=== PATIENT | female | born 1965 | race Caucasian/White ===

== ENCOUNTER 2019-08-08 19:08 | Emergency (ER) | payer SELFPAY ==
[~2019-08-08] VITALS: Ht 162.6 cm; Wt 63.5 kg
[~2019-08-08 19:08] MED LIST: ENALAPRIL MALEA10 MG PO; FOL1 PO; GEODON20 MG PO; MAXZIDE1 TAB PO; SERO100 PO; SEROQUEL200 MG PO; THI100 PO; TRAMADOL50 M1 PO
[2019-08-08 20:19] VITALS: Ht 162.6 cm; Wt 63.5 kg
[2019-08-08 22:02] LABS: BASOPHIL % 0.5 % (0-2); PLATELET COUNT 146 x10^3mcL (130-400); RED CELL DISTRIBUTION WIDTH 14.3 % (11.5-14.5)
[2019-08-08 22:04] LABS: CALCIUM 8.9 mg/dL (8.5-10.1); CARBON DIOXIDE 24.3 mmol/L (21-32); CHLORIDE SERUM 100 mmol/L (98-107); CREATININE SERUM 0.8 mg/dL (0.6-1.0); GFR1 > 60 mL/min; GLUCOSE SERUM 96 mg/dL (74-106); POTASSIUM SERUM 3.4 mmol/L (3.5-5.1); SODIUM SERUM 138 mmol/L (136-145)
[2019-08-08 22:51] VITALS: BP 121/79
== END 2019-08-08 22:53 | disposition home or self-care (01) ==
LOC: ED 19:08
PROVIDERS: Emergency Medicine
DX: R55 Syncope and collapse (principal); F10.129 Alcohol abuse with intoxication, unspecified; I10 Essential (primary) hypertension
CPT/HCPCS: 36415; G0480

== ENCOUNTER 2020-07-07 09:23 | Inpatient (IN) | payer OTHER ==
[~2020-07-07] VITALS: Ht 160 cm; Wt 63.7 kg
[2020-07-07 09:34] VITALS: Ht 160 cm; Wt 63.7 kg
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
--- NOTE | 2020-07-07 10:55 | NUR ---
PT IS STILL AGITATING AND YELLING AROUND. ED AWARE. ATIVAN WAS ORDERED AND GIVEN FOLLOWS ABBIE GIVEN IM.
--- NOTE | 2020-07-07 11:22 | NUR ---
PT FINALLY QUIETED DOWN. JUAN CARLOS FEMALE RN WAS ASKED TO INSERT IN&OUT THEN URINE SAMPLE COLLECTED AND SENT TO LAB.
--- NOTE | 2020-07-07 11:37 | NUR ---
PT IS QUIETLY SLEEPING NOW.
[2020-07-07 11:50] LABS: AMPHETAMINE QUAL UR NONE DETECTED (See below)
[2020-07-07 12:40] LABS: BASOPHIL % 0.3 % (0-2)
[2020-07-07 12:48] LABS: CALCIUM 8.7 mg/dL (8.5-10.1); CARBON DIOXIDE 23.6 mmol/L (21-32); CHLORIDE SERUM 107 mmol/L (98-107); CREATININE SERUM 0.6 mg/dL (0.6-1.0); GFR1 > 60 mL/min; GLUCOSE SERUM 95 mg/dL (74-106); SODIUM SERUM 141 mmol/L (136-145)
[2020-07-07 12:52] LABS: ALBUMIN 3.4 g/dL (3.4-5.0); ALKALINE PHOSPHATASE 66 U/L (46-116); ALT/SGPT 12 U/L (14-59); AST/SGOT 32 U/L (15-37); BILIRUBIN TOTAL 0.54 mg/dL (0.20-1.00); TOTAL PROTEIN, SERUM 6.6 g/dL (6.4-8.2)
[2020-07-07 12:59] LABS: RED CELL DISTRIBUTION WIDTH 15.5 % (11.5-14.5)
[2020-07-07 13:02] LABS: PLATELET COUNT 79 x10^3mcL (130-400)
--- NOTE | 2020-07-07 13:16 | NUR ---
PT RESTING WITH NO SIGNS OF DISTRESS.
[2020-07-07 13:33] LABS: microscopic required? YES; urine erythrocyte 1+ (NEGATIVE)
[2020-07-07 15:14] LABS: ALBUMIN 3.8 g/dL (3.4-5.0); ALKALINE PHOSPHATASE 73 U/L (46-116); ALT/SGPT 17 U/L (14-59); AST/SGOT 24 U/L (15-37); BILIRUBIN DIRECT 0.18 mg/dL (0.0-0.2); BILIRUBIN TOTAL 0.6 mg/dL (0.20-1.00); TOTAL PROTEIN, SERUM 6.7 g/dL (6.4-8.2)
--- NOTE | 2020-07-07 16:53 | NUR ---
PHONE ORDERS FROM DR. DEL ROSARIO FOR ADMISSION, NEEDS SITTER; SLEEVE SETTER LOCKSTITCH AWARE AND PT IS ON 5059
--- NOTE | 2020-07-07 16:55 | NUR ---
COVID SWAP WAS DONE AND SENT TO LAB.
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
--- NOTE | 2020-07-07 22:15 | NUR ---
DR TUCKER CALLED BACK AND HE SAID HE WILL PUT IN ORDERS.
[2020-07-07 22:33] VITALS: BP 138/79
--- NOTE | 2020-07-07 22:50 | NUR ---
PUT IN NEW ORDER FOR HYDRALAZINE FOR PRODUCT DELIVERY SPECIALIST ON THE [facility] PER TELEPHONE ORDER FORM DR TUCKER
--- NOTE | 2020-07-07 22:51 | NUR ---
PUT IN NEW ORDER FOR IV FLUIDS [facility] D[facility]/2 NS AT 80 ML/HR ORDERED BY
[2020-07-08 05:40] VITALS: BP 126/69
--- NOTE | 2020-07-08 06:53 | NUR ---
PT HALLUCINATING AND VERY AGITATED ALL NIGHT. REMAINED IN BILATERAL WRIST RESTRAINS AND SITTER AT BEDSIDE. REFUSES TO TAKE ANYTHING PO. IVF INFUSING ORDERED. WILL ENDORSE CARE TO INCOMING DAY SHIFT RN FOR CONTINUITY OF CARE
[2020-07-08 07:26] LABS: ALBUMIN 3.6 g/dL (3.4-5.0); ALKALINE PHOSPHATASE 69 U/L (46-116); ALT/SGPT 21 U/L (14-59); AST/SGOT 32 U/L (15-37); BILIRUBIN TOTAL 0.7 mg/dL (0.20-1.00); CALCIUM 8.5 mg/dL (8.5-10.1); CARBON DIOXIDE 28.6 mmol/L (21-32); CHLORIDE SERUM 106 mmol/L (98-107); CHOLESTEROL 162 mg/dL (<200); CHOLESTEROL/HDL RATIO 3.2; CREATININE SERUM 0.8 mg/dL (0.6-1.0); GFR1 > 60 mL/min; GLUCOSE SERUM 102 mg/dL (74-106); HDL CHOLESTEROL 50 mg/dL (40-60); MAGNESIUM 1.7 mg/dL (1.8-2.4); PHOSPHOROUS 3.1 mg/dL (2.5-4.9); POTASSIUM SERUM 3.7 mmol/L (3.5-5.1); SODIUM SERUM 141 mmol/L (136-145); TOTAL PROTEIN, SERUM 6.5 g/dL (6.4-8.2); TRIGLYCERIDES 86 mg/dL (<150)
[2020-07-08 07:41] LABS: BASOPHIL % 0.2 % (0-2)
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
[2020-07-08 08:05] LABS: PLATELET COUNT 72 x10^3mcL (130-400); RED CELL DISTRIBUTION WIDTH 14.9 % (11.5-14.5)
[2020-07-08 09:00] VITALS: BP 161/77
--- NOTE | 2020-07-08 10:00 | NUR ---
PATIENT GIVEN HER MEDICATION BUT SOME SHE SPIT OUT AND REFUSED. SHE HAS A TEMPERATURE BUT REFUSED THE TYLENOL THE PSYCH MEDICAIONS STAFF WAS ABLE TO GIVE. SITTER AT BEDSIDE AND PATIENT REMAINS A 5150. SHE HAS SCATTERED ADN DISORGANIZED THOUGHTS AND SHE IS AGRESSIVE AND VIOLENT AT TIMES.
--- NOTE | 2020-07-08 11:41 | NUR ---
CALED THE DR FOR ORDERS THE PATIENT HAS HAD AN ISSUE WITH HER SPLEEN ON PREVIOUS ADMISSION AND THE TECH WANT TO KNOW IF HE WOULD PREFER A COMPLETE RATHER THAN A LIMITTED. ALSO TIM HAS BEEN EATTING POORLY WITH ONLY A SMALL BIT OF ALBANIAN TOAST THIS AM. SHE REFUSES MOST EVERYTHING AND WAS SARI TO GET SOME OF HER MEDICATIONS IN HER GEODON, VISTERIL. SHE HAD THE TYLNEOL AND VITAMINS BUT REFUSED THEM AND SPIT THEM OUT DURING MEDICATION PASS.
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
[2020-07-08 13:44] VITALS: BP 143/86
--- NOTE | 2020-07-08 16:11 | NUR ---
THE HALDOL WAS EFFECTIVE FOR A SHORT TIME BUT SHE IS AGAIN AGITATED AND YELLING AND CRYING. SHE HAS NOT MADE MUCH SENSE WITH THE SENARIOS SHE TALKS ABOUT THEY SEEM MIXED UP AND NO AT ALL TIMELY. LIKE MAYBE SOMETHING HAPPENDED IN THE PAST. SHE CALLS OUT FOR HER DADDY. SHE HAS INTERMITTANT PERIODS OF FOUL LANGUAGE AND SHE THREATENS STAFF AND THEN SHE IS CRYING LIKE A SMALL CHILD. SHE CONTINUE WITH BILATERAL RESTRAINTS AND WITH SITTER AT BEDSIDE.
--- NOTE | 2020-07-08 17:52 | NUR ---
SPOKE AT [facility] FOR THE SECOND TIME TODAY WITH . NO RESULTS OF THE PCYCH CONSULT OR THE ULTRASOUND. PATIENT ADVISED IS STABLE AT THIS TIME.
--- NOTE | 2020-07-08 19:35 | NUR ---
RECEIVED PT FROM DAYSHIFT NURSE. UNABLE TO ASSESS ALOC DUE TO EPISODES OF CONFUSION AND PATIENT RESTING AND HAVING EPISODES OF RESTLESNESS. PATIENT IS MED SURG PATIENT, DENIES CHEST PAIN. PULSES ARE EQUAL BILATERALLY, NO EDEMA NOTED. PATIENT IS CTA, ON RA, DENIES SOB. NO ACUTE DISTRESS NOTED, EVEN AND UNLABORED BREATHING. ABDOMEN IS SOFT AND ROUND, NO PAIN UPON PALPATION, NORMOACTIVE X4 QUADRANTS. PATIENT IS INCONTINENT AT THIS TIME. PATIENT HAS IV TO LEFT WRIST 22G, SITE INTACT, NO REDNESS OR SWELLING NOTED. PATIENT IS AGRESSIVE AND UNCOOPERATIVE WITH STAFF. BILATERAL SOFT WRIST RESTRAINTS IN PLACE. ALL SAFETY MEASURES IN PLACE, BED IN LOWEST POSITION, CALL LIGHT WITHIN REACH. WILL CONTINUE TO MONITOR.
--- NOTE | 2020-07-08 19:51 | NUR ---
Call Center weight shifter is aware of patient and will assist with bed placement when ready. -pending packet -pending medical clearance -pending call from [facility] when ready for placement
--- NOTE | 2020-07-08 21:11 | NUR ---
RECEIVED PHONE CALL FROM PATIENT'S REGARDING MISSED PHONE CALL FROM DOCTOR. CALLED [facility] AND PROVIDED 'S PHONE NUMBER TO HAVE DOCTOR CALL HIM BACK. INFORMED OF AWAITING FOR CALL.
--- NOTE | 2020-07-08 21:14 | NUR ---
DR. ALEJANDRE CALLED BACK, STATED HE WILL NOTIFY DR. DEL ROSARIO TO CONTACT PATIENT'S .
[2020-07-09 00:10] VITALS: BP 117/95
--- NOTE | 2020-07-09 01:05 | NUR ---
PATIENT RESTING INTERMITTENTLY WITH EYES CLOSED. PATIENT CONTINUES TO HAVE AGITATION EPISODES. ABLE TO GIVE PATIENT SEROQUEL MEDICATION AT THE TIME SHE WAS AWAKE. PATIENT WAS RE-ORIENTED TO ENVIRONMENT, OBSERVED BEING ABLE TO SWALLOW WITHOUT DIFFICULTY. PATIENT REMAINS ON BILATERAL SOFT WRIST RESTRAINTS. ALL SAFETY MEASURES IN PLACE. BED IN LOWEST POSITION, CALL LIGHT WITHIN REACH. WILL CONTINUE TO MONITOR.
[2020-07-09 06:43] LABS: ALKALINE PHOSPHATASE 64 U/L (46-116); ALT/SGPT 21 U/L (14-59); AST/SGOT 23 U/L (15-37); BILIRUBIN TOTAL 0.6 mg/dL (0.20-1.00); CALCIUM 8.2 mg/dL (8.5-10.1); CARBON DIOXIDE 28.6 mmol/L (21-32); CHLORIDE SERUM 106 mmol/L (98-107); CREATININE SERUM 0.7 mg/dL (0.6-1.0); GFR1 > 60 mL/min; GLUCOSE SERUM 128 mg/dL (74-106); MAGNESIUM 1.8 mg/dL (1.8-2.4); PHOSPHOROUS 4.3 mg/dL (2.5-4.9); POTASSIUM SERUM 3.2 mmol/L (3.5-5.1); SODIUM SERUM 141 mmol/L (136-145)
[2020-07-09 06:46] LABS: BASOPHIL % 0.4 % (0-2)
--- NOTE | 2020-07-09 06:50 | NUR ---
UNABLE TO EDIT PATIENT'S VITAL SIGNS AT THIS TIME. IT HAS BEEN CONTACTED T : 97.1, HR: 69, RR :18, BP: 105/63 (77), SPO2 : 99%.
[2020-07-09 06:56] LABS: PLATELET COUNT 73 x10^3mcL (130-400); RED CELL DISTRIBUTION WIDTH 15.8 % (11.5-14.5)
--- NOTE | 2020-07-09 06:57 | NUR ---
PATIENT RESTING INTERMITTENTLY WITH EYES CLOSED. PATIENT AWAKES WITH EPISODES OF AGITATION AND CONFUSION. PATIENT REMAINS ON BILATERAL SOFT WRIST RESTRAINTS. ALL SAFETY MEASURES IN PLACE. BED IN LOWEST POSITION, CALL LIGHT WITHIN REACH. SITTER AT BEDSIDE.
[2020-07-09 07:10] LABS: ALBUMIN 3.3 g/dL (3.4-5.0)
--- NOTE | 2020-07-09 07:19 | NUR ---
ENDORSED CARE TO DAYSHIFT NURSE. ALL QUESTIONS/CONCERNS ADDRESSED.
--- NOTE | 2020-07-09 07:55 | NUR ---
Received report. [facility] now has patient packet.
--- NOTE | 2020-07-09 08:07 | NUR ---
Packet referred to: Yani Cheng [facility]
[2020-07-09 08:30] VITALS: BP 148/81
--- NOTE | 2020-07-09 18:52 | NUR ---
Received report from day shift and Call Center will continue to call contracted [facility] psych facilities for bed availability.
--- NOTE | 2020-07-09 19:40 | NUR ---
RECEIVED PT FROM DAYSHIFT NURSE. UNABLE TO ASSESS ALOC. PT IS MED SURG PATIENT, DENIES CHEST PAIN. PULSES ARE EQUAL BILATERALLY, NO EDEMA NOTED. PATIENT IS CTA, ON RA, DENIES SOB. NO ACUTE DISTRESS NOTED, EVEN AND UNLABORED BREATHING. ABDOMEN IS SOFT AND ROUND, NO PAIN PALPATION. NORMOACTIVE X4 QUADRANTS, LAST BM UNKNOWN, PT CONFUSED UNABLE TO GIVE INFORMOATION. PT IS INCONTIENT. PT HAS GENERALIZED WEAKNESS, BEDFAST AT THIS TIME. PT HAS LACERATION TO FORHEAD, ELECTROLYSIS INVESTIGATOR. PATIENT DEMONSTRATES NO S/S OF PAIN. IV TO LEFT WRIST, 2OG, SITE INTACT, NO REDNESS OR SWELLING. PATIENT IS ON BILATERAL SOFT WRIST RESTRAINTS, INTERMITTENT EPISODES OF AGGRESIVENESS AND RESTLENESS. SITTER AT BEDSIDE. ALL SAFETY MEASURES IN PLACE. BED IN LOWEST POSITION, CALL LIGHT WITHIN REACH. WILL CONTINUE TO MONITOR.
[2020-07-09 19:42] VITALS: BP 142/86
--- NOTE | 2020-07-09 20:05 | NUR ---
RECEIVED TELEPHONE ORDER FOR RENEWAL OF BILATERAL SOFT WRIST RESTRAINTS FROM DR. HILL. PHYSICAL PAPER IN PATIENT'S CHART, DR. DORMAN NEEDED.
--- NOTE | 2020-07-10 00:30 | NUR ---
PATIENT RESTING INTERMITTENTLY WITH EYES CLOSED. PATIENT WAS ABLE TO TAKE MEDICATION DURING SCHEDULED MEDICATION TIME, SWALLOWED ADEQUATELY, DENIES ANY PAIN. PATIENT DEMONSTRATES EPISODES OF CONFUSION. SITTER AT BEDSIDE, BILATERAL SOFT WRIST RETRAINTS IN PLACE. ALL SAFETY MEASURES IN PLACE. BED IN LOWEST POSITION, CALL LIGHT WITHIN REACH. WILL CONTINUE TO MONITOR.
--- NOTE | 2020-07-10 05:22 | NUR ---
No update on bed placement during shift. Patient will need a psychiatric revaluation due to 5150 expiring today 05/10 @ 0905. Will endorse to oncoming AM shift.
--- NOTE | 2020-07-10 05:47 | NUR ---
PATIENT REMAINS WITH EPISODES OF CONFUSION AND AGITATION. PATIENT HAS CONFUSED EPISODES OF SPEECH, RAMBLING TOPICS. PT BECOMES AGITATED WITH NURSING TEAM AT TIMES, SITTER REMAINS AT BEDSIDE. PATIENT DEMONSTRATES NO S/S OF PAIN OR DISTRESS AT THIS TIME. ALL SAFETY MEASURES IN PLACE. BED IN LOWEST POSITION, CALL LIGHT WITHIN REACH. WILL CONTINUE TO MONITOR AND ENDORSE TO DAYSHIFT NURSE AT APPROPRIATE TIME.
[2020-07-10 06:10] VITALS: BP 130/76
--- NOTE | 2020-07-10 07:07 | NUR ---
[facility] to continue working on placement, no openings overnight. 7379 hold expires at 0905
--- NOTE | 2020-07-10 07:20 | NUR ---
ENDORSED CARE TO DAYSHIFT NURSE. ALL QUESTIONS/CONCERNS ADDRESSED.
[2020-07-10 07:32] LABS: ALBUMIN 3.5 g/dL (3.4-5.0); ALKALINE PHOSPHATASE 71 U/L (46-116); ALT/SGPT 26 U/L (14-59); AST/SGOT 27 U/L (15-37); BILIRUBIN TOTAL 0.69 mg/dL (0.20-1.00); CARBON DIOXIDE 25.5 mmol/L (21-32); CHLORIDE SERUM 107 mmol/L (98-107); CREATININE SERUM 0.8 mg/dL (0.6-1.0); GFR1 > 60 mL/min; GLUCOSE SERUM 100 mg/dL (74-106); MAGNESIUM 1.8 mg/dL (1.8-2.4); PHOSPHOROUS 4.4 mg/dL (2.5-4.9); SODIUM SERUM 142 mmol/L (136-145); TOTAL PROTEIN, SERUM 6.4 g/dL (6.4-8.2)
--- NOTE | 2020-07-10 07:40 | NUR ---
PT AWAKE AND AGITATED. UNABLE TO ASSESS LOC. NO S/S OF PAIN NOTED. PT STARTS AGITATED WHEN SHE SEES HEALTHCARE TEAM. CONFUSED AND UNABLE TO ANSWER QUESTIONS PROPERLY. NO RESPIRATION DISTRESS NOTED. BREATHING EVEN AND UNLABORED. NO EDEMA NOTED. LAST BM UNKNOWN, INCONTINENT. BOWEL SOUND ACTIVE [id number]. MED/SURG PATIENT. PT IS GENERALIZED WEAKNESS. LACERATION TO FOREHEAD RAFAEL. IV ACCESS TO LH 20G, SALINE LOCK SITE WNL. PT HAS BILATERAL SOFT WRIST RESTRAINT, NO REDNESS, SWELLING NOTED. CAP REFILL<3SEC. SKIN WARM, PINK. VS WNL. SAFETY MEASURE IN PLACE. SITTER AT BEDSIDE. CALL LIGHT WITHIN REACH, BED AT LOWEST POSITION. WILL CONTINUE TO MONITOR.
[2020-07-10 08:14] LABS: BASOPHIL % 0.7 % (0-2)
[2020-07-10 08:15] LABS: PLATELET COUNT 63 x10^3mcL (130-400); RED CELL DISTRIBUTION WIDTH 15.8 % (11.5-14.5)
[2020-07-10 08:18] VITALS: BP 137/85
[2020-07-10 12:06] VITALS: BP 142/86
--- NOTE | 2020-07-10 13:01 | NUR ---
PT AWAKE, CONFUSED. AGITATED IMPROVED AFTER GIVING ATIVAN PO. NO SOB, ACUTE DISTRESS NOTED.
[2020-07-10 16:47] VITALS: BP 129/74
--- NOTE | 2020-07-10 18:33 | NUR ---
PT SLEEPY, CONFUSED. DENIES PAIN. NO SOB, S/S OF ACUTE DISTRESS NOTED. BREATHING EVEN AND UNLABORED. IV ACCESS TO LH 20G, HL PATENT, NO S/S OF INFECTION/INFILTRATION. SITTER AT BEDSIDE. BILATERAL SOFT WRIST RESTRAINT IN PLACE. SAFETY PRECAUTION IN PLACE. CALL LIGHT WITHIN REACH, BED AT LOWEST POSITION. WILL BE ENDORSED TO MAINTENANCE MECHANIC RN.
--- NOTE | 2020-07-10 19:35 | NUR ---
PT. REPORT RECIEVED FROM DAY SHIFT NURSE, PT. RESTING W/ EYES CLOSED, NO FACIAL DROOP NOTED, RR EVEN AND UNLABORED ON RA, CHEST RISE SYMT, ALL SAFETY MEASURES FOLLOWED, SITTER AT BEDSIDE, WILL CONT TO MONITOR.
[2020-07-10 20:27] VITALS: BP 115/76
--- NOTE | 2020-07-11 03:07 | NUR ---
PT. IS IN BED RESTING, NO FACIAL DROOP NOTED, CLEAR SPEECH, RR EVEN AND UNLABORED ON RA, CHEST RISE SYMT, L W IV INTACT AND WNL, NO REDNESS NOTED, NO ACUTE CHANGE/ DISTRESS NOTED, SOFT RESTRAINT APPLIED DUE TO PT. SELF HARM, SITTER AT BEDSIDE, SEIZURE PRECUATION IN PLACE, CALL LIGHT WITHIN REACH, WILL CONT TO MONITOR.
[2020-07-11 05:13] VITALS: BP 104/61
--- NOTE | 2020-07-11 06:18 | NUR ---
CC continuing to work on placement, no openings overnight.
--- NOTE | 2020-07-11 07:31 | NUR ---
PT. REPORT ENDORSE TO DAY SHIFT NURSE, PT. RESTING IN BED, SOFT RESTRAINT APPLIED DUE TO PT. SELF HARM, SITTER AT BEDSIDE, RR EVEN AND UNLABORED ON RA, CHEST RISE SYMT, IV INTACT AND WNL, ALL SAFETY MEASURES IN PLACE, WILL CONT TO MONITOR.
[2020-07-11 07:49] LABS: ALKALINE PHOSPHATASE 64 U/L (46-116); ALT/SGPT 22 U/L (14-59); AST/SGOT 24 U/L (15-37); BILIRUBIN TOTAL 0.4 mg/dL (0.20-1.00); CALCIUM 8.4 mg/dL (8.5-10.1); CARBON DIOXIDE 26.8 mmol/L (21-32); CHLORIDE SERUM 107 mmol/L (98-107); CREATININE SERUM 0.8 mg/dL (0.6-1.0); GFR1 > 60 mL/min; GLUCOSE SERUM 104 mg/dL (74-106); MAGNESIUM 1.8 mg/dL (1.8-2.4); PHOSPHOROUS 4.9 mg/dL (2.5-4.9); POTASSIUM SERUM 3.9 mmol/L (3.5-5.1); SODIUM SERUM 142 mmol/L (136-145)
[2020-07-11 07:56] LABS: ALBUMIN 3.3 g/dL (3.4-5.0); TOTAL PROTEIN, SERUM 5.8 g/dL (6.4-8.2)
[2020-07-11 08:00] VITALS: BP 139/84
[2020-07-11 09:39] LABS: BASOPHIL % 0.2 % (0-2)
[2020-07-11 09:40] LABS: PLATELET COUNT 91 x10^3mcL (130-400); RED CELL DISTRIBUTION WIDTH 15.6 % (11.5-14.5)
--- NOTE | 2020-07-11 09:44 | NUR ---
PT AWAKE, CONFUSED AND AGITATED. SEIZURE PRECAUTION IN PLACE. MED SURG PATIENT. PT GETS MORE AGITATED WHEN HEALTH TEAMS ARE CLOSE TO THE BED. C/O BACK PAIN AND BODY PAIN 5/10, NORCO GIVEN. NO RESPIRATORY DISTRESS NOTED. BREATHING EVEN AND UNLABORED. LUNG CTA PERIPHERAL PULSES PALPABLE, NO EDEMA NOTED. INCONTINENT. POOR APPETITE. BOWEL SOUND ACTIVE [id number]. ABD SOFT AND NONTENDER. IV ACCESS TO LEFT WRIST RUNNING D5%-0.45%NACL 80/ML/HR INFUSING WELL SITE WNL. PT ON 5150 HOLD. BILATERAL SOFT WRIST RESTRAINTS EXP 07/11/20 AT 1500. CAP REFILL <3SEC, SKIN SURROUND RESTRAINT WNL. SITTER AT BEDSIDE. CALL LIGHT WITHIN REACH. BED AT LOWEST POSITION. WILL CONTINUE TO MONITOR.
--- NOTE | 2020-07-11 11:00 | NUR ---
STATED WANTED TO GO TO BATHROOM. ASSISTED BY 3 STAFFS TO STAND UP AND PATIENT VOIDED RIGHT AWAY ON THE FLOOR. PATIENT IS UNTEADY GAIT, VERY WEAK. ASSISTED BACK TO BED. LINENS CHANGED. PATIENT ASKED TO SPEAK TO HER . CALLED PATIENT'S (DIAMANTE) FROM HER CELL PHONE. APPEARS CALMER BUT CONFUSED. KEPT PATIENT COMFORTABLE IN BED. MARIKA SOFT WRIST RESTRAINT APPLIED. SITTER 1:1 AT BEDSIDE. SEIZURE PRECAUTION ON.
--- NOTE | 2020-07-11 12:30 | NUR ---
PATIENT APPEARS VERY AGITATED, ATTEMPTED TO GET OUT OF BED, COMBATIVE AND TRY TO SPIT AT ME AND SITTER. PATIENT ATTEMPTED TO GET OFF FROM BILATERAL SOFT WRIST RESTRAINT SCREAMING/CRYING. HADOL 2.5MG IM GIVEN FOR AGITATION. WILL CONTINUE TO MONITOR.
[2020-07-11 15:46] VITALS: BP 135/70
--- NOTE | 2020-07-11 15:48 | NUR ---
No openings at any contracted facility at this time [facility] continuing to follow up.
--- NOTE | 2020-07-11 17:10 | NUR ---
PT AGITATED AND PULLED OUT HER IV ACCESS ON LH. REMOVED THE OLD LH IV ACCESS AND [id number] APPIED TO THE SITE, THE IV SITE HAS NO S/S OF INFECTION NOTED. NEW IV ACCESS STARTED TO RIGHT WRIST 22G, COVERED WITH TEGADERM DRESSING, CDI. D5%-0.45% RUNNING TO RH IV INFUSING WELL, PATENT. BILATERAL SOFT WRIST RESTRAINT IN PLACE. CAP REFILL <3SEC. SKIN SURROUND THE RESTRAINT PINK AND WARM. SITTER AT BEDSITE, CALL LIGHT WITHIN REACH, BED AT LOWEST POSITION. WILL CONTINUE TO [facility].
--- NOTE | 2020-07-11 18:51 | NUR ---
PT SLEEPING AND CONFUSED. DENIES PAIN, SOB, DIZZINESS. BREATHING EVEN AND UNLABORED. NO S/S OF ACUTE RESPIRATORY DISTRESS NOTED. BILATERAL SOFT WRIST RESTRAINTS IN PLACE. CAP REFILL <3SEC, SKIN SURROUND RESTRAINTS PINK, WARM. IV ACCESS TO RIGHT WRIST RUNNING D5%-0.45% 80ML/HR INFUSING WELL, SITE WNL. VS REMAINS WNL. SEIZURE PRECAUTION IN PLACE. SITTER AT BEDSIDE. SAFETY MEASURE IN PLACE, CALL LIGHT WITHIN REACH, BED AT LOWEST POSITION. WILL BE ENDORSED TO TABLE GAMES MANAGER RN.
--- NOTE | 2020-07-11 19:00 | NUR ---
I HAVE REVIEWED THE DATA COLLECTION BY RN (NAME): BLAKE CROOKS ENTERED ON (DATE/TIME):07/11/20 7A-7P. I CONCUR WITH THE DATA AND ANY EXCEPTIONS OR COMMENTS ARE LISTED BELOW:
[2020-07-11 19:47] VITALS: BP 133/78
[2020-07-12 06:27] VITALS: BP 157/99
[2020-07-12 07:04] LABS: BASOPHIL % 0.3 % (0-2)
[2020-07-12 07:17] VITALS: BP 131/90
[2020-07-12 07:36] LABS: ALBUMIN 3.5 g/dL (3.4-5.0); ALKALINE PHOSPHATASE 66 U/L (46-116); ALT/SGPT 24 U/L (14-59); AST/SGOT 30 U/L (15-37); BILIRUBIN TOTAL 0.48 mg/dL (0.20-1.00); CALCIUM 8.9 mg/dL (8.5-10.1); CARBON DIOXIDE 25.8 mmol/L (21-32); CHLORIDE SERUM 106 mmol/L (98-107); CREATININE SERUM 0.9 mg/dL (0.6-1.0); GFR1 > 60 mL/min; GLUCOSE SERUM 103 mg/dL (74-106); MAGNESIUM 1.7 mg/dL (1.8-2.4); PHOSPHOROUS 3.9 mg/dL (2.5-4.9); POTASSIUM SERUM 4.3 mmol/L (3.5-5.1); SODIUM SERUM 142 mmol/L (136-145); TOTAL PROTEIN, SERUM 6.7 g/dL (6.4-8.2)
[2020-07-12 07:41] LABS: PLATELET COUNT 101 x10^3mcL (130-400); RED CELL DISTRIBUTION WIDTH 15.4 % (11.5-14.5)
[2020-07-12 13:00] VITALS: BP 142/89
[2020-07-12 16:00] VITALS: BP 147/85
--- NOTE | 2020-07-12 18:53 | NUR ---
Pt currently in bed alert but confused. Pt condition remained stable throughout this shift. Pt able to communicate pain but denies pain this shift. All meds given as ordered. Oral meds crushed with apple sauce made it easier for pt to take. Restraints removed multiple times this shift for assessment. Pt attempted to get out of bed without assistance and also attempts to removes IV access immediately restraints removed. Due to pt safety, restraints still needed at this time. Nursing sitter used throughout this shift. Safety measures maintained-Bed in low position and sitter at bed side. Will endorse care to oncoming shift RN.
--- NOTE | 2020-07-12 20:21 | NUR ---
RECEIVED PT SITTING ON THE BED AAOX1 , PT'S VERY CONFUSED AND AGITATED , BILAT WRIST RESTRAINT AND SITTER FOR SAFETY, WILL CON'T TO MONITOR AND ASSIST PT WITH CARE .
--- NOTE | 2020-07-12 21:50 | NUR ---
PT'S VERY AGITATED SCREAMING OUT LOUD REFUSED PM MEDS , HALDOL IM GIVEN ORDERED.
--- NOTE | 2020-07-13 02:06 | NUR ---
PT'S IN BED AWAKE AND CALM, [facility] .
--- NOTE | 2020-07-13 06:25 | NUR ---
POST HALDOL , PT'S AWAKE AND CALM , SITTER AT THE BEDSIDE FOR SAFTY , PIV INTACT INFUSING WELL .
[2020-07-13 07:17] VITALS: BP 131/84
--- NOTE | 2020-07-13 07:58 | NUR ---
CALL OUT TO CASE MANAGMENT FOR UPDATE NO ANSWER.WILL TRY BACK
[2020-07-13] MEDS ORDERED: DEP250 PO (11:51)
--- NOTE | 2020-07-13 18:49 | NUR ---
Pt currently in bed alert but confused. Pt was calm at the begining part of the shift but became so agitated yelling on top of her voice this evening. Holdol given as ordered once and its was effective. Pt currently calm in bed. Restraints removed multiple times this shift for assessment but re-applied because each time restraints removes, pt attempts to get out of bed and also tried to remove her IV access. Due to pt safety, restraints still bed. Pt has order for [facility] hosptal but no bed available at this time. Safety measures maintained in place. Bed in low postion and nursing sitter at bed side. Will endorse care to oncoming shift RN.
[2020-07-13 21:39] VITALS: BP 159/99
--- NOTE | 2020-07-14 00:39 | NUR ---
PATIIENT CONTINUES ON 1:1 SITTER. NO DISTRESS NOTED ON ROUNDS. PATIENT WAITING FOR PLACEMENT TO A PSYCHE FACILITY. PATIENT ABLE TO TAKE MEDICATIONS BY MOUTH WITHOUT ANY DIFFICULTIES. BILATERAL SOFT WRIST RESTRAINT CONTINUED. BED IN LOW POSITION. SITTER AT BEDSIDE.
--- NOTE | 2020-07-14 01:17 | NUR ---
Sent intake information to [facility] for review. Will keep facility updated with any information of possible transfer for admission
[2020-07-14 05:20] VITALS: BP 135/85
--- NOTE | 2020-07-14 06:48 | NUR ---
[facility] day shift to continue actively looking for placement for this pt. Will followup with potential facilities today. Will contact with any updates. No openings per cnc machinist 2nd shift report.
[2020-07-14 09:10] VITALS: BP 148/69
--- NOTE | 2020-07-14 10:31 | NUR ---
REMOVED IV ACCESS, INFILTRATED
--- NOTE | 2020-07-14 15:17 | NUR ---
Received call from HANS Chambers at [facility] following up regarding pt placement status. States New labs were faxed to [facility] directly. Spoke with template maker at [facility], states they have not received any labs. Will attempt to contact S/W to receive labs as they are not visible in chart or able to be printed on our end at this time.
--- NOTE | 2020-07-14 18:05 | NUR ---
PLEASANTLY CONFUSED, REMAINS DELUSIONAL AND HALLUCINATE, CALM DURING SHIFT. SITTER AT BEDSIDE FOR SAFETY. REFUSED TO HAVE IV ACCESS, PATIENT GETS AGITATED. PER CM, WAITING FOR BED AT [facility].
--- NOTE | 2020-07-14 20:00 | NUR ---
PATIENT RECEIVED AWAKE, ALERT, ORIENTED X1. RESPIRATION EVEN AND UNLABORED, ON ROOM AIR. NO IV ACCESS, MD AWARE. 1:1 SITTER AT BEDSIDE FOR SAFETY. INCONTINENT OF BOWEL AND BLADDER. GENERALIZED WEAKNESS. HEALED LACERATION TO FOREHEAD. ON SEIZURE PRECAUTION. PLACED CALL LIGHT WITHIN REACH AT ALL TIMES. WILL CONTINUE TO MONITOR.
[2020-07-14 22:16] VITALS: BP 139/97
--- NOTE | 2020-07-14 23:35 | NUR ---
Spoke with technical document writer at [facility], he will review patients chart again and will contact unit for any questions and will notify Call Center if patient can be accommodated. -pending recent labs to faxed over by HANS
[2020-07-15 06:26] VITALS: BP 176/80
--- NOTE | 2020-07-15 06:38 | NUR ---
PATIENT AWAKE IN BED WITH EPISODES OF RESTLESSNESS. NO SI/HI/AH/VH NOTED. RESPIRATION EVEN AND UNLABORED. ON BILATERAL SOFT WRIST RESTRAINTS FOR SAFETY. 1:1 SITTER AT THE BEDSIDE FOR SAFETY. INCONTINENT OF URINE. ASSISTED WITH NEEDS. SAFETY OBSERVED. PLACED BED IN THE LOWEST POSITION. MAINTAINED SIDERAILS UP AT ALL TIMES. PLACED CALL LIGHT WITHIN REACH AT ALL TIMES.
[2020-07-15 06:44] VITALS: BP 158/98
--- NOTE | 2020-07-15 07:13 | NUR ---
[facility] day shift to continue actively looking for placement for this pt. Will followup with potential facilities today. Will contact with any updates. No openings per retail shift leader report.
[2020-07-15 08:14] VITALS: BP 148/80
--- NOTE | 2020-07-15 10:35 | NUR ---
MULTIPLE ATTEMPTS TO HAVE PATIENT AMBULATE BUT UNABLE TO DO SO, TOLERATED SITTING ON EDGE OF BED, ABLE TO STAND VERY BRIEFLY AND BACK TO SITTING, PATIENT UNABLE TO TAKE EVEN A STEP. WILL UPDATE CM.
[2020-07-15 13:01] VITALS: BP 188/116
--- NOTE | 2020-07-15 14:55 | NUR ---
PHYSICAL THERAPY NOTE PATIENT REFUSED PHYSICAL THERAPY EVAL. TO FOLLOW UP AGAIN TOMORROW.
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
[2020-07-15 17:44] VITALS: BP 155/87
--- NOTE | 2020-07-15 18:27 | NUR ---
CALM, BURST OF RESTLESSNESS AND AGITATION WITHOUT STIMULI NOTED AT TIMES. SITTER AT BEDISDE FOR SAFETY. PLACEMENT STILL PENDING.
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
[2020-07-16 01:33] VITALS: BP 150/93
[2020-07-16 05:57] VITALS: BP 138/92
--- NOTE | 2020-07-16 06:24 | NUR ---
PT HAD A RESTING NIGHT PERINEAL REDNESS CLEAN AND WAS MADE COMFORTABLE IN BED,Z GUARD APPLIED,WILL CONTINUE TO MONITOR.
--- NOTE | 2020-07-16 08:00 | NUR ---
RECEIVED PATIENT FROM NIGHT RN MERVIN. PATIENT IS AWAKE, CONFUSED. ON RA, NO SOB NOTED. NON-COOPERATIVE, REFUSED TO TAKE HER BREAKFAST. PATIENT IS STILL ON BLATERAL SOFT WRIST RESTRAINTS. RESTRAINT SITE IS CLEAN, NO SKIN BREAKDOWN NOTED. SITTER IS AT BEDSIDE. CALL LIGHT WITHIN REACH. WILL CONTINUE TO MONITOR PATIENT.
[2020-07-16 08:50] VITALS: BP 151/98
[2020-07-16 13:51] VITALS: BP 138/89
--- NOTE | 2020-07-16 15:09 | NUR ---
CC still assisting with placement.
--- NOTE | 2020-07-16 15:09 | NUR ---
Late entry: [facility]
--- NOTE | 2020-07-16 15:10 | NUR ---
[facility] will continue to follow up with surrounding faciltites to locate psych placement for pt
--- NOTE | 2020-07-16 15:30 | NUR ---
ASSISTED SITTER CHANGED PATIENT, AND GIVE BED BATH.
[2020-07-16 16:50] VITALS: BP 165/90
--- NOTE | 2020-07-16 18:38 | NUR ---
PATIENT IS AWAKE, ORIENTED TO NAME. MOSTLY CALM, AGITATED AT TIMES. REPOSITION EVERY TWO HOURS, PERSONAL HYGIENE IS WELL MAINTAINED. CONTINUE RESTRAINTS, AND WILL CONTINUE TO MONITOR.
--- NOTE | 2020-07-16 20:00 | NUR ---
RECEIVED PT FROM AM NURSE PT SITTING IN BED, CALM, CONFUSED BILATERAL WRIST RESTAINTS MAINTAINED SITTER AT BEDSIDE NO SOB NOTED NO SIGNS OF PAIN NOTES NO IV ACCESS REPOSITION Q2H ALL NEEDS MET AT THIS TIME WILL CONTINUE TO MONITOR PT
--- NOTE | 2020-07-16 20:10 | NUR ---
PT REFUSED 1999 VITAL SIGNS
--- NOTE | 2020-07-17 06:28 | NUR ---
[facility] to continue looking for placement for this pt. Difficulties in placement faced d/t pt inability to walk/stand
--- NOTE | 2020-07-17 06:29 | NUR ---
PT SLEPT FOR THE NIGHT PT AGITATED AT TIMES HALDOL GIVEN X1 PT REFUSE 0400 VITAL SIGNS SOFT WRIST RESTRAINT MAINTAINED SITTER AT BEDSIDES ALL NEEDS MET WILL ENDORSE TO AM NURSE
[2020-07-17 08:30] VITALS: BP 141/85
[2020-07-17 09:30] VITALS: BP 141/85
--- NOTE | 2020-07-17 11:03 | NUR ---
RECEIVED PATIENT FROM NIGHT RN SEJAL. PATIENT IS AWAKE, CONFUSED. REFUSED TO HAVE HER MORNING MEDS AND PHYSICAL THERAPY. PATIENT APPEARS TO BE CALM WHEN SHE IS LEFT ALONE, BECOMES AGITATED AND AGGRESSIVE WHEN BEING APPROACHED BY STAFF. PATIENT IS UNCOOPERATIVE AND STILL REQUIRES BILATERAL WRIST RESTRAINTS AT THIS TIME. WILL STILL FREQUENTLY MONITOR HER CONDITION.
--- NOTE | 2020-07-17 12:09 | NUR ---
No openings at this time. followup calls to [facility], [facility]. Pt declined for admission at [facility] due to inability to stand/walk per nurses note
--- NOTE | 2020-07-17 18:17 | NUR ---
PATIENT IS AWAKE BUT CONFUSED. CONTINUE TO BE ON BILATERAL WRIST RESTRAINTS. NOT COOPERATIVE WITH VITAL SIGNS TAKING AND PERSONAL HYGIENE. PATIENT CRIES AND YELLS AT STAFF AT TIMES. PATIENT CURRENTLY QUIET, WILL CONTINUE TO MONITOR AND ENDORSE TO NIGHT RN.
--- NOTE | 2020-07-17 19:05 | NUR ---
Report received from outgoing shift. Will continue to seek placement
--- NOTE | 2020-07-17 20:34 | NUR ---
RECEIVED REPORT FROM OUTGOING NURSE.PATIENT AWAKE,ALERT,AND ORIENTED.SKIN WARM AND DRY TO TOUCH.RESPIRATION EVEN AND UNLABORED,NO RESPIRATORY DISTRESS.NO EPISODE OF AGITATION AND SUICIDAL IDEATION AT THIS TIME.CURRENTLY ON BILATERAL WRIST RESTRAINT FOR SAFETY.CURRENTLY ON 1:1 SITTER.CALL LIGHT WITHIN REACH. KEPT COMFORTABLE.
[2020-07-17 23:24] VITALS: BP 152/99
--- NOTE | 2020-07-18 04:22 | NUR ---
Called the following facilities: [facility] s/w [facility]-no beds [facility] s/w [facility]-no beds [facility] s/w [place]-no beds [facility] s/w [facility]-no beds [facility] s/w [facility]-no beds
--- NOTE | 2020-07-18 06:36 | NUR ---
PATIENT SLEPT WELL AT NIGHT .NO EPISODES OF VERBALIZATION OF SUICIDAL IDEATION.GOOD PERICARE GIVEN AFTER EACH EPISODES OF BLADDER INCONTINENCE. ENCOURAGED TO INCREASE FLUID INTAKE.REMAINED ON BILATERAL WRIST RESTRAINT,RELEASED Q 2HRS FOR 15 MINS. AND CHECKED FOR CIRCULATION AND BILATERAL WRIST SITE,NO REDNESS,NO SWELLING THEN REAPPLIED.KEPT COMFORTABLE.
[2020-07-18 06:48] VITALS: BP 115/77
[2020-07-18 09:06] VITALS: BP 149/95
[2020-07-18 13:15] VITALS: BP 131/87
[2020-07-18 16:20] VITALS: BP 134/101
--- NOTE | 2020-07-18 19:30 | NUR ---
Assumed care of patient. Patient confused on a 5150 hold. Patient is awake in bilateral wrist restraints with sitter at bedside. No acute distress noted at this time. Needs currently met. Plan is [facility] placement. Dx: Pantocytopenia since resolved.
[2020-07-18 20:38] VITALS: BP 111/77
--- NOTE | 2020-07-19 | NUR ---
PATIENT REMAINS CONFUSED AND DISORIENTED. PATIENT SPEAKING TO HERSELF AT TIMES. WRIST RESTRATINTS REMAINS IN PLACE AND SITTER REMAINS AT BEDSIDE. NEEDS MET AT THIS TIME. PATIENT RESTING INTERMITTENTLY.
--- NOTE | 2020-07-19 03:54 | NUR ---
PATIENT IS RESTING IN BED COMFORTABLY , NO ACUTE DISTRESS NOTED AT THIS TIME. BILATERAL SOFT WRIST RETRAINTS IN PLACE AND PROTOCOLS FOLLOWED. SITTER REMAINS AT BEDSIDE. NEEDS MET AT THIS TIME.
--- NOTE | 2020-07-19 05:26 | NUR ---
There are still no beds available at any of the designated facilities [facility]
[2020-07-19 05:53] VITALS: BP 147/91
--- NOTE | 2020-07-19 07:25 | NUR ---
Received report. There are no beds at this time.
--- NOTE | 2020-07-19 07:27 | NUR ---
PATIENT STABLE AT THIS TIME.SBAR GIVEN TO DAY SHIFT RN.
[2020-07-19 07:41] LABS: ALBUMIN 3.9 g/dL (3.4-5.0); ALKALINE PHOSPHATASE 61 U/L (46-116); ALT/SGPT 21 U/L (14-59); AST/SGOT 20 U/L (15-37); BILIRUBIN TOTAL 0.7 mg/dL (0.20-1.00); CALCIUM 9.4 mg/dL (8.5-10.1); CARBON DIOXIDE 26.9 mmol/L (21-32); CHLORIDE SERUM 103 mmol/L (98-107); CREATININE SERUM 0.9 mg/dL (0.6-1.0); GFR1 > 60 mL/min; GLUCOSE SERUM 109 mg/dL (74-106); SODIUM SERUM 140 mmol/L (136-145); TOTAL PROTEIN, SERUM 7.6 g/dL (6.4-8.2)
[2020-07-19 07:43] LABS: BASOPHIL % 0.6 % (0-2); PLATELET COUNT 170 x10^3mcL (130-400)
[2020-07-19 08:45] LABS: RED CELL DISTRIBUTION WIDTH 15.8 % (11.5-14.5)
[2020-07-19 09:19] VITALS: BP 145/79
--- NOTE | 2020-07-19 16:19 | NUR ---
THE PATIENT IS LAERT AND AWAKE. SHE IS VERY DISORIENTED AND RE-ORIENTED AT TIMES. THE PATIENT IS HERE FOR A 51/50, RESTRAINTS ON AND OFF EVERY TWO HOURS. THE PATIENT HAS A 1:1 SITTER. THE PATIENT WILL LASH OUT AT TIMES, YELLING AND SCREAMING. MEDICATIONS GIVEN PER MD ORDERS, PATIENT ABLE TO FOLLOW COMMANDS AT TIMES, DEPENDING ON HER MOOD. SHE TOOK ALL MORNING MEDICATIONS, PER MD ORDERS. WILL CONTINUE TO MONITOR. 1:1 SITTER TO CONTINUE SAFETY MEASURES.
[2020-07-19 18:13] VITALS: BP 112/81
[2020-07-19 21:49] VITALS: BP 125/81
--- NOTE | 2020-07-19 23:08 | NUR ---
Call Center aware at this time there are no vacancy at the following facilities [facility] will continue to make calls for placement ,charge nurse Reyna HOLGUIN made aware.
--- NOTE | 2020-07-20 01:37 | NUR ---
PATIENT SLEEPY, AROUSABLE, ABLE TO SWALLOW PILLS WHEN GIVEN. IV STARTED TO RIGHT HAND. IV D5 1/2 NS STARTED. SITTER AT BEDSIDE. PATIENT HAS SOFT WRIST RESTRAINT BILATERALLY DUE TO PULLING OUT LINES. CALL RUSSELL WITH IN REACH, BED IN LOW POSITION. BED ALARM ON.
[2020-07-20 05:59] VITALS: BP 118/73
--- NOTE | 2020-07-20 06:52 | NUR ---
Received report. There are still no beds. [facility] working on placement at this time.
--- NOTE | 2020-07-20 06:54 | NUR ---
PATIENT HAS NOT VOIDED THE WHOLE NIGHT, BLADDER SCANNER NOT WORKING AT THIS TIME. PATIENT NOT IN DISTRESS, NO S/SX OF PAIN NOTED. CALLED [facility] [employer], LEFT A MESSAGE REGARDING PATIENT AND NEED AN ORDER FROM A DOCTOR [facility]. AWAITING CALL BACK FROM DR. GAVIN.
--- NOTE | 2020-07-20 08:00 | NUR ---
PT. RECEIVED IN BED SLEEPING BUT AWAKEN TO VOICE.CARE ASSURED.PT IS 5150 HOLD WITH SITTER @ BEDSIDE.SAFETY RESTRAINTS, BILAT NOTED.PT AWAKE TO DENIES SUICIDAL OR HOMOCIDAL IDEATION.VSS.AFEBRILE.SKIN WARM AND DRY TO TOUCH.BED IN LOW SAFE POSITION.PER REPORT, PT DUE TO VOID,CLOSE MONITORING OF VOIDING IN PROGRESS.
[2020-07-20 08:58] VITALS: BP 122/78
--- NOTE | 2020-07-20 14:25 | NUR ---
Follow Up Nutrition Assessment: 254[address] Carlita Lulu -55 YO F Dx: Pancytopenia, 5150 PMHx: HTN, Dementia, Spleen disorder, TBI, Chronic back pain PSHx: none noted Labs: (07/19) BUN 26H, BG 109H (07/12) H/H 10.8/32L, Mg 1.7L, Ammonia 10L Meds: Haldol, Geodon, Depakote, D5%, vitamin B-1, Folic acid, Vasotec, Colace Diet: Cardiac diet PO intake since admission: refusing meals, average 10-30% PO intake Ht: 160.02cm/63in Wt: 63.73kg/140.2lbs BMI: 24.9 Bed scale: 135# IBW: 52.27kg/115lbs %IBW: 121.9% UBW: none noted Age: 55 Food Allergies: NKFA Edema: none noted Last BM: 07/17 Skin: healed laceration to forehead, redness coccyx Irvin: 14 Pt was admitted with dx: delirium, suicidal intention, h/o unspecified dementia, pancytopenia, HTN RD Note (07/15/2020) Pt was seen lying in bed during bed side visit. Pt was verbally responsive but mumbling when talking. Per pt's RN, pt is poor historian d/t psych issues. Per RN, pt had constipation, and pt also had low appetite and might be benefit from ONS and finger foods. Per RN, pt liked drinking milk and juices. Pt was agreeable to have ONS. Additionally, RN reported that bed scale weight may not be accurate d/t it was not calibrated. RD Note (07/20): Pt is still confused at bedside, not able to understand. Has been eating poorly d/t mental state per RN. There are some meals recorded about 10-30% mostly and refusals. Mostly eats just the ice cream and pudding per sitter at bedside. There has been a prior RD intervention with ONS to supplement pro/kcal needs. Ensure HP BID has been given since last week. Per RN only can Enusre drank for breakfast and a small pudding. Per progress note pt is pending placement to psych facility once bed available. Not meeting needs. Will continue to encourage oral intake and ONS. Problem with: N/V/D/C: constipation Problems with: Chewing: Swallowing: none noted Current appetite: poor per sitter (07/20) Recent wt change: unknown %wt change: unknown Height: unknown Vitamin/Supplement use: unknown Special diet at home: unknown Physical activity: unknown Nutrition education given (specify specific nutrition education and handout given): not given at this time d/t pt's mental status. Food-drug interactions? Education given? n/a Estimated Nutritional Needs Based on ideal body weight (52kg) Energy: 5288-1918 kcal/day (25-30 kcal/kg for maintenance) Protein: 41-52 g/day (0.8-1 g/kg for maintenance) Fluid: 9156-6841 mL/day (1 mL/kcal) Nutrition Diagnosis: 1. Inadequate energy and protein intake r/t psych issue related poor PO intake a/e/b pt average 28.6% PO intake since admission. Intervention 1. Recommend NA2G diet to liberalize options. 2. Recommend Ensure high protein BID to provide additional 320kcal and 32g protein. 3. RD will switch Ensure high protein to Ensure Enlive once NA2G diet is implemented. Monitor/Evaluate Goal: PO intake at least 75% of estimated needs Monitor: PO intake, Labs, GI function, ONS intake F/U in 3-5 days as moderate risk
--- NOTE | 2020-07-20 16:30 | NUR ---
PT SEEPING AT TIMES BUT AWAKEN TO VOICE.ALERT AND YELLING AT STAFF.CARE PROVIDED.PT KICKS AND HITS AT STAFF AT TIME.NO ACUTE DISTRESS NOTED.NEEDS ARE BEING MET.PT REMAIN 5150 HOLD.SITTER AT BEDSIDE.NEEDS ARE BEING MET.BED IN LOW SAFE POSITION.
--- NOTE | 2020-07-20 17:25 | NUR ---
There are no new updates on beds. Will endorse to next shift.
[2020-07-20 18:13] VITALS: BP 122/55
--- NOTE | 2020-07-20 20:12 | NUR ---
PT RECEIVED SITTING UP IN BED TALKING TO HERSELF AND APPEARS TO BE HAVING AUDITORY AND/OR VISUAL HALLUCINATIONS, PT NON-RESPONSIVE TO QUESTIONS REGARDING WHO SHE IS TAKLING TO OR OTHER ASSESSMENT QUESTIONS. NON-VERBAL PAIN INDICATORS ABSENT. NO RESPIRATORY DISTRESS NOTED ON RA. BILATERAL SOFT WRIST RESTRAINTS PROPERLY APPLIED, NO INJURIES NOTED. GIVEN BEHAVIOR ROM AND RELEASE NOT PROVIDED AT THIS TIME. IV LFA RUNNING D51/2NS@80ML/HR, PATENT, NO COMPLICATIONS TO SITE. BED IN LOWST POSITION, SIDE RAILS X 3 FOR SAFETY, CALL LIGHT WITHIN REACH, SITTER AT BEDSIDE.
--- NOTE | 2020-07-21 00:05 | NUR ---
PT SOILED IN URINE. RN ATTEMPTED TO CHANGE PT BUT PT BECAME AGITATED AND REFUSED TO BE CHANGED. WILL ATTMEPT TO CHANGE AGIN WHEN PT IS CALMER.
--- NOTE | 2020-07-21 03:07 | NUR ---
IV R WRIST DISLODGED ACCIDENTALTY WITH PT MOVEMENT. IV INTACT. GAUZE DRESSING APPLIED, C/D/I. IV LFA 22G RESTARTED, PATENT, NO COMPLICATIONS TO SITE, RUNNING D5 1/2NS@80ML/HR. SL WRIST D/C, DOES NOT FLUSH, GAUZE DRESSING APPLIED, C/D/I. PT SOILED, CHANGED. GOWN AND LINENS CHANGED. ROM AND RELEASE PROVIDED WELL WATER. ALL NEEDS MET. PT SLEEPING IN SUPINE POSITION.
--- NOTE | 2020-07-21 06:52 | NUR ---
PT AWAKE AND ALERT BUT CONTINUES TO BE CONFUSED WITH HALLUCINATIONS, AGITATED, AND AT TIMES COMBATIVE. BILATERAL SOFT WRIST RESTRAINTS REMAIN IN PLACE, APPLIED PROPERLY, NO INJURIES NOTED. IV TO R WRIST DISLODGED, RESTARTED, PATENT, RUNNING D5 1/2NS@80MLHR, NO COMPLICATIONS TO SITE. SL TO L WRIST DOES NOT FLUSH, PT REFUSES TO HAVE IV REMOVED AT THIS TIME. AM VITALS WERE ATEMPTED TIMES 3 BUT DUE TO PT AGITATION MACHINE UNABLE TO OBTAIN VS. NO C/O PAIN OR SOB NOTED OR REPORTED. PT CLEANED, GOWN CHANGED. BED IN LOWEST POSITOIN, SIDE RAILS X 2, CALL LIGHT WITHIN REACH, 1:1 SITTER AT BEDSIDE.
--- NOTE | 2020-07-21 07:00 | NUR ---
PT RECIEVED IN BED,SITTING UP AND ROCKING BACK AND FORTH.CARE ASSURED.NO ACUTE DISTRESS NOTED.PT IS 5150 HOLD AND STILL VERY DELUSION BUT DENIES SUICIDAL AND/OR HOMOCIDAL IDEATION.BILAT. SOFT WRIST RESTRAINTS AND SITTER @ BEDSIDE FOR SAFETY.VSS.AFEBRIEL.MED/SURG PT.ABD SOFT,FLAT AND ACTIVE.SKIN WARM AND DRY TO TOUCH WITH REDNESS ON COCCYX.INCONT.BED IN LOW SAFE POSITION.NEEDS ARE BEING MET.
[2020-07-21 09:17] VITALS: BP 108/62
--- NOTE | 2020-07-21 10:23 | NUR ---
Packet refaxed to the following facilities for review for potential openings: [facility] Declined at [facility] due to inability to walk/stand.
[2020-07-21 14:35] VITALS: BP 151/80
[2020-07-21 16:42] VITALS: BP 121/99
[2020-07-21 19:24] VITALS: BP 151/89
--- NOTE | 2020-07-21 19:34 | NUR ---
PT RECEIVED LYING IN BED IN SUPINE POSITION WITH HOB ELEVATED 30 DEGREES. PT IS NOTED TO BE RESTLESS BUT QUIET AT THE MOMENT. PT NON-RESPONSIVE TO QUESTIONS. RESPIRATIONS EVEN UNLABORED, RA, CTA, NO SIGNS OF RESPIRSTORY DISTRESS. PERIPHERAL PULSES PALPABLE, NO EDEMA NOTED. NON VERBAL PAIN INDICATORS ABSENT. BILATERAL SOFT WRIST RESTRAINTS APPLIED PROPERLY, NO INJURIES NOTED. BED IN LOWEST POSITOIN, SIDE RAILS X 2, CALL LIGHT WITHIN REACH, 1:1 SITTER AT BEDSIDE.
--- NOTE | 2020-07-22 01:30 | NUR ---
PT LYING IN BED IN SUPINE POSITION SLEEPING. NO RESPIRATORY DITRESS NOTED ON RA. NON VERBAL PAIN INDICATORS ABSENT. BILATERAL SOFT WRIST RESTRAINTS PROPERLY APPLIED, NO INJURIES NOTED. BED IN LOWEST POSITION, SIDE RAILS X 2, CALL LIGHT WITHIN REACH, 1:1 SITTER AT BEDSIDE.
[2020-07-22 04:14] VITALS: BP 109/64
--- NOTE | 2020-07-22 06:06 | NUR ---
NO CHANGES FROM INITIAL ASSESSMENT. PT SLEPT THROUGHOUT MOST OF THE NIGHT WITH BRIEF EPISODES OF AWAKENING FOR CHANGING. PT REMAINS CONFUSED AND EASILY AGITATED WHEN STIMULATED. PT ALSO NOTED TO TRY TO GET OOB X 1 WHEN RESTRAINT RELEASE PROVIDED. BILATERAL SOFT WRIST RESTRAINTS PROPERLY APPLIED AT THIS TIME, NO INJURIES NOTED. IV TO R WRIST PATENT, NO COMPLICATIONS TO SITE, RUNNING D5 1/2NS@80ML/HR. NO FALLS OR INJUIRES SUSTAINED DURING SHIFT. LINEN CHANGED X 1, GOWN CHANGED, INCONTINENT OF URINE X 2, NO BM. BED IN LOWEST POSITION, SIDE RAILS X 2, CALL LGT WITHIN REACH, 1:1 SITTER AT BEDISDE.
--- NOTE | 2020-07-22 06:14 | NUR ---
Updated/renewed 5150 received via fax per [facility]. 5150 was already expiring upon receiving. Per time stamp from fax machine, hold came through 07/21 at 1650, hold 07/21 @1750. Will contact [facility] in regard to POC, will request new hold should one be written.
[2020-07-22 08:18] VITALS: BP 110/64
--- NOTE | 2020-07-22 08:47 | NUR ---
AT 0830 - RECEIVED PATIENT FROM NIGHT NURSE. PATIENT SLEEPING. RESPIRATIONS REGULAR. FOUND IN MARIKA SOFT WRIST RESTRAINTS FOR COMBATIVE BEHAVIOR. AT TACTILE STIMULI, PATIENT AWOKE AND SAID: "LEAVE ME ALONE". HAS NOT YET EATEN BREAKFAST. 1:1 SITTER IN ROOM WITH PATIENT.
--- NOTE | 2020-07-22 09:37 | NUR ---
Renewed 5150 received at [facility], will update potential facilities. Will contact unit with any placement updates.
--- NOTE | 2020-07-22 10:49 | NUR ---
AT 1010 - PATIENT NOW AWAKE, ALERT. WAS ABLE TO TAKE SOME BREAKFAST AND ALL SCHEDULED MEDS PER EMAR.
[2020-07-22 11:45] VITALS: BP 114/72
--- NOTE | 2020-07-22 18:50 | NUR ---
PATIENT MOSTLY AWAKE THIS AFTERNOON. REMAINS CONFUSED WITH PERIODS OF CALOLING OUT AND BEING COMBATIVE - ATTEMPTING TO HIT STAFF. ALSO HAS PERIODS OF HALLUCINATIONS; TALKS TO IMAGINARY PEOPLE. CONTINUES TO REFUSE PHYSICAL THERAPY AND GETTING OUT OF BED AND AMBULATION. HAD PERIOD OF SCREAMING AROUND DINNER TIME. HAS AGREED TO TAKE PO MEDS PRESCRIBED. IV INFUSING D5 1/2NS AT 80 ML/HR. REMAINS IN MARIKA SOFT WRIST RESTRAINTS WITH SITTER AT BEDSIDE. PATIENT IS EATING WITH ASSISTANCE. WILL ENDORSE CARE TO NIGHT NURSE.
--- NOTE | 2020-07-22 19:30 | NUR ---
RECEIVED PT FROM AM NURSE, PT SITTING UP IN BED APPEARING RESTLESS MUMMBLING UNTANGIBLE AND JUMBLED WORDS. PT IS ALERT X 1 WITH HALLUCINATIONS. PT IS M/S NO VERBALIZATIONS OF CHEST PAIN. PULSES PALPABLE/ NO EDEMA. LUNG SOUNDS CTA/ RESPIRATIONS E/U ON RA. ACTIVE BS X 4 QUADS, ABD SOFT AND NON TENDER/ NON DISTENDED, DENIES N/V/D. BLANCHABLE REDNESS TO COCCYX. EXCORIATION TO THE PERINEAL. DENIES PAIN. IV TO RW INTACT, NO ERYTHEMA, NO INFILTRATION. IV FLUIDS INFUSING WELL. DENIES PAIN AT THIS TIME. CALL BUTTON WITHIN REACH, WILL CONTINUE TO MONITOR.
--- NOTE | 2020-07-23 00:31 | NUR ---
PT SITTING UP IN BED, AWAKE AND TALKING TO SELF AND PLAYING WITH BLANKETS. DENIES PAIN. PT GETS EASILY AGITATED. BILATERAL SOFT WRIST RESTRAINTS IN PLACE, SKIN INTACT AND CIRCULATION WNL. SIDE RAILS UP X 3 FOR SAFETY, SITTER AT BEDSIDE. CALL BUTTON WITHIN REACH, WILL CONTINUE TO MONITOR.
[2020-07-23 06:22] VITALS: BP 149/76
--- NOTE | 2020-07-23 06:24 | NUR ---
PT SLEPT IN INTERVALS THROUGHOUT THE NIGHT, BUT EASILY AROUSABLE AND EASILY AGITATED. PT INCONTINENT, CLEANED AND KEPT DRY DURING SHIFT. IV FLUIDS INFUSIG WELL TO RFA. PT LASHING OUT AT STAFF WHEN SOFT BILATERAL WRIST RESTRAINTS REMOVED. RESTRAINTS PLACED BACK ON. SKIN AND CIRCULATION WNL.NO ACUTE CHANGES OVERNIGHT, CALL BUTTON WITHIN REACH, SITTER AT BEDSIDE FOR SAFETY. WILL ENDORSE CARE TO AM NURSE.
--- NOTE | 2020-07-23 07:33 | NUR ---
RECEIVED PATIENT FROM NIGHT NURSE. SLEEPING. RESPIRATIONS REGULAR. IV INFUSING D5 1/2 NS AT 80 ML/HR. PATIENT IS IN MARIKA SOFT WRIST RESTRAINTS. SITTER IN ROOM WITH PATIENT.
[2020-07-23 08:05] VITALS: BP 107/72
[2020-07-23 13:00] VITALS: BP 142/89
--- NOTE | 2020-07-23 15:39 | NUR ---
AT 0910 - PATIENT IS AWAKE, CONFUSED, HALLUCINATING. REFUSING TO EAT BUT WAS AGREEABLE TO TAKE SCHEDULED MEDS. AT 1100 - APPLYING Z-GUARD BARRIER CREAM TO REDDENED AREA ON BUTTOCKS. PATIENT INSISTS ON SITTING UP IN BED AND IS REFUSING TO BE REPOSITIONED TO OFF LOAD PRESSURE. AT 1350 - HAS REFUSED TO EAT LUNCH AND NOW ALSO REFUSED TO TAKE SCHEDULED PO MEDS.
[2020-07-23 17:18] VITALS: BP 155/89
--- NOTE | 2020-07-23 17:56 | NUR ---
PATIENT SPENT MOST OF THE AFTERNOON TALKING TO SELF OR IMAGINARY PEOPLE. PATIENT IS RESISTIVE WITH NURSING CARE. ATTEMPTS MADE TO KEEP PATIENT ON SIDE AND NOT JUST SITTING UP IN BED AND TO CHANGE POSITION. PATIENT PUSHES STAFF AWAY. HAS REMAINS IN MARIKA SOFT WRIST RESTRAINTS WITH SITTER AT THE BEDSIDE. SEEN BY DR MCGINNIS. SPOKE WITH ABOUT PATIENT'S CONDITION - PATIENT REFUSING FOOD AND FLUIDS TODAY. CONTINUE WITH IV FLUIDS AT 75 ML/HR.
--- NOTE | 2020-07-23 18:52 | NUR ---
PATIENT IS QUIET AT THIS TIME. REDUCED EATING. HAS TAKEN ONE FULL NUTRITIONAL SUPPLIMENT AND 20% OF FOOD AT LUNCH. REFUSING DINNER SO FAR. WILL ENDORSE CARE TO NIGHT NURSE.
--- NOTE | 2020-07-23 19:30 | NUR ---
RECEIVED PT FROM AM NURSE. PT IS AWAKE AND TALKING TO SELF AND IMAGINARY PEOPLE. DENIES HEADACHE/ DENIES DIZZINESS AT THIS TIME. PT IS MED SURG, NO S/S OF CHEST PAIN/ CHEST PRESSURE. PULSES PALPABLE, NO EDEMA. LUNG SOUNDS CTA, RESPIRATIONS E/U ON RA. NO RESPIRATORY DISTRESS. ACTIVE BS X 4 QUADS, DENIES N/V/D. INCONTINENT. BLANCHABLE REDNESS TO COCCYX, EXCORIATION TO PERINEAL AREA, Z GUARD APPLIED. DENIES PAIN. IV TO RW INTACT, IV FLUIDS INFUSING WELL. SOFT MARIKA WRIST RESTRAINTS INTACT, SKIN INTACT, CIRCULATION WNL. SITTER AT BEDSIDE. FOOD AND FLUIDS ENCOURAGED. CALL BUTTON WITHIN REACH, WILL CONTINUE TO MONITOR.
[2020-07-23 20:00] VITALS: BP 155/92
--- NOTE | 2020-07-24 00:25 | NUR ---
PT AWAKE AND SITTING UP IN BED. PT IS TALKING TO SELF AND IMAGINARY PEOPLE, RESTLESS BUT NOT SCREAMING AT THIS TIME. RESPIRATIONS E/U ON ROOM AIR. IV FLUIDS INFUSING WELL TO RW. RESTRAINTS REMOVED, SKIN INTACT AND CIRCULATION WNL. PT BEGAN TO GET AGITATED AND STARTED SCREAMING AND GRABBING AT STAFF. SOFT BILATERAL WRIST RESTRAINTS PUT BACK ON FOR PT SAFETY. NO S/S OF PAIN AT THIS TIME. SITTER AT BEDSIDE FOR SAFETY. CALL BUTTON WITHIN REACH, WILL CONTINUE TO MONITOR.
[2020-07-24 05:30] VITALS: BP 132/83
--- NOTE | 2020-07-24 06:18 | NUR ---
[facility] continuing to work on placement, unable to find facility willing to accept up to this point. Difficulties in placement involve lackof open beds, and inability by facilities to accomodate pt unable to stand/walk on their psych units. Will continue to follow up.
[2020-07-24 06:59] LABS: BASOPHIL % 0.7 % (0-2)
--- NOTE | 2020-07-24 07:01 | NUR ---
PT REMAINS RESTLESS AND TALKING TO SELF/ RESPONDING TO INTERNAL STIMULI. PT CONTINUES TO STRIKE OUT AT STAFF PHYSICALLY AND VERBALLY. SOFT BILATERAL WRIST RESTRAINTS IN PLACE, SKIN INTACT AND PULSE WNL. IV FLUIDS INFUSING WELL, SITTER AT BEDSIDE. CALL BUTTON WITHIN REACH, WILL ENDORSE CARE TO AM NURSE.
[2020-07-24 07:21] LABS: PLATELET COUNT 93 x10^3mcL (130-400); RED CELL DISTRIBUTION WIDTH 15.7 % (11.5-14.5)
[2020-07-24 07:25] LABS: CALCIUM 8.9 mg/dL (8.5-10.1); CARBON DIOXIDE 26.9 mmol/L (21-32); CHLORIDE SERUM 108 mmol/L (98-107); CREATININE SERUM 0.6 mg/dL (0.6-1.0); GFR1 > 60 mL/min; GLUCOSE SERUM 93 mg/dL (74-106); POTASSIUM SERUM 3.8 mmol/L (3.5-5.1); SODIUM SERUM 144 mmol/L (136-145)
--- NOTE | 2020-07-24 07:40 | NUR ---
RECIEVED REPORT FROM PM NURSE. PATIENT LYING IN BED COMFORTABLY. RESTRAINTS ARE IN PLACE. DOES NOT RESPOND VERBALLY TO OTHERS. WILL CONTINUE TO MONITOR
[2020-07-24 08:44] VITALS: BP 148/70
[2020-07-24 14:17] VITALS: BP 151/89
--- NOTE | 2020-07-24 14:28 | NUR ---
Packet refaxed to potential accepting facilities. [facility], [facility], [facility]. All reporting potential openings today.
[2020-07-24 15:55] VITALS: BP 136/82
--- NOTE | 2020-07-24 19:01 | NUR ---
PATIENY IS LYING DOWN WITH EYES CLOSED. NO FACIAL GRIMACING OR S/S DISCOMFORT. BREATHING EVEN, UNLABORED. VS STABLE. BES IN LOWEST POSITION, RAILS UP, CALL LIGHT WITHIN REACH, SITTER AT BEDSIDE. WILL ENDORSE TO PM NURSE
[2020-07-24 20:00] VITALS: BP 156/90
--- NOTE | 2020-07-24 20:00 | NUR ---
PT RECEIVED IN BED, SITTING IN HER BED, AWAKE TALKING TO HERSELF, PT IS ALERT AND ORIENTED TO NAME, ABLE TO FOLLOW SIMPLE COMMANDS, AUNABLE TO MAKE NEEDS KNOWN. SPEECH IS GARBLED AND UNABLE TO CARRY COHERENT CONVERSATION. LUNGS CLR BILATERALLY, RESP IS EVEN AND UNLABORED. RADIAL AND PEDAL PULSES PRESENT, NO EDEMA NOTED. BED TO LOWEST POSITION, CALL LIGHT WITHIN REACH, BED ALARM ON, PROVIDE FREQUENT VISUAL MONITORING, 1:1 SITTER AT BED SIDE. WILL CONT TO MONITOR FOR CHANGES IN CONDITION.
--- NOTE | 2020-07-24 22:11 | NUR ---
PT IV SITE INFILTRATED, PAGED DR. UGARTE TO NOTIFY PT GETTING COMBATIVE AND AGGITATED REFUSING IV ACCESS.
--- NOTE | 2020-07-24 22:23 | NUR ---
DR. UGARTE CALLED BACK AND NOTIFIED PT IV SITE INFILTRATED AND REFUSING IV RE INSERTION GETTING COMBATIVE AND AGGITATED. RECEIVED NEW ORDER TO DC FLUID IV HYDRATION. NEW ORDER NOTED AND CARRIED OUT.
--- NOTE | 2020-07-25 05:06 | NUR ---
PT AGREED TO RE-INSERT IV AT THIS TIME,INSERTED NEW IV SITE ON RIGHT FOREARM G 22 WITH GOOD BLOOD RETURN,PROCEDURE TOLERATED,INFORMED PRIMARY RN OF NEW IV SITE
[2020-07-25 06:19] VITALS: BP 110/60
--- NOTE | 2020-07-25 07:17 | NUR ---
RECIEVED REPORT FROM PM NURSE. PT SITTING IN BED. A/O X2 ORIENTED TO SELF AND PLACE AT THIS TIME. PT ABLE TO VERBALIZE 0/10 PAIN AND "I FEEL GOOD". HEART RRR S1, S2 NOTED. PULSES EQUAL, PALPABLE. LUNGS CLEAR ALL THROUGHOUT. BOWEL SOUNDS ACTIVE. PT INCONTINENT, LAST VOID 07/25/2020. FULL ACTIVE ROM. REDNESS TO COCCYX, NOT OPEN. IV TO RFA. WILL CONTINUE TO ASSESS
--- NOTE | 2020-07-25 07:30 | NUR ---
PT IN BED AWAKE RESTING COMFORTABLY. NO C/O PAIN, NO ACUTE DISTRESS NOTED. RESP IS EVEN AND UNLABORED. NEEDS ATTENDED AND MET. FREQUENT VISUAL MONITORING RENDERED. PT AGREED FOR IV ACCESS RE INSERTION AND CHARGE NURSE WAS ABLE TO INSERT ON RFA. ENDORSE TO NEXT SHIFT NURSE TO F/U WITH MD IF HE WOULD LKE TO CONT IV HYDRATION.
--- NOTE | 2020-07-25 07:51 | NUR ---
SPOKE WITH DR UGARTE ABOUT PATIENT IV ACCESS AND IV HYDRATION. STATES TO D/C FLUIDS EVEN WITH NEW IV ACCESS PLACEMENT.
[2020-07-25 09:28] VITALS: BP 141/96
--- NOTE | 2020-07-25 11:40 | NUR ---
PT LYING IN BED YELLING. ATTEMPTED TO SOOTHE PT WITH RELAXATION TECHNIQUES, PT DID NOT COMPREHEND. VISIBALLY AGITATED. BREATHING UNLABORED AND EVEN. WILL CONTINUE TO MONITOR. BED IN LOWEST POSITION, RAILS UP, CALL LIGHT WITHIN REACH, SITTER AT BEDSIDE.
--- NOTE | 2020-07-25 14:33 | NUR ---
Follow Up Nutrition Assessment: 254B Lulu Zazueta -55 YO F Dx: Pancytopenia, 5150 PMHx: HTN, Dementia, Spleen disorder, TBI, Chronic back pain PSHx: none noted Labs: Cl: 108H, BUN: 6L, H/H: 10.6/31L Meds: Haldol, Geodon, Depakote, D5%, vitamin B-1, Folic acid, Vasotec, Colace Diet: Cardiac diet PO intake since admission: 25% x 28 meals BMI: 24.9 Bed scale: 135#, (07/25): 137.7# Edema: none noted Last BM: 07/25 Skin: no skin issues noted, WNL Irvin: 14 RD Note (07/15/2020) Pt was seen lying in bed during bed side visit. Pt was verbally responsive but mumbling when talking. Per pt's RN, pt is poor historian d/t psych issues. Per RN, pt had constipation, and pt also had low appetite and might be benefit from ONS and finger foods. Per RN, pt liked drinking milk and juices. Pt was agreeable to have ONS. Additionally, RN reported that bed scale weight may not be accurate d/t it was not calibrated. RD Note (07/20): Pt is still confused at bedside, not able to understand. Has been eating poorly d/t mental state per RN. There are some meals recorded about 10-30% mostly and refusals. Mostly eats just the ice cream and pudding per sitter at bedside. There has been a prior RD intervention with ONS to supplement pro/kcal needs. Ensure HP BID has been given since last week. Per RN only can Enusre drank for breakfast and a small pudding. Per progress note pt is pending placement to psych facility once bed available. Not meeting needs. Will continue to encourage oral intake and ONS. RD note (07/25): at time of visit, pt was speaking to herself, unable to speak to pt. pt weighed 62.6 kg (137.7 lbs) at time of visit, pt was sitting up in bed. Pt's nurse reported that pt is not eating well and recommends ensure three times a day. Pt is tolerating regular texture at this time per nursing. Pt had a BM today per pt's primary nurse. Estimated Nutritional Needs Based on ideal body weight (52kg) Energy: 5620-5102 kcal/day (25-30 kcal/kg for maintenance) Protein: 41-52 g/day (0.8-1 g/kg for maintenance) Fluid: 4796-5911 mL/day (1 mL/kcal) Nutrition Diagnosis: 1. Inadequate energy and protein intake r/t psych issue related poor PO intake a/e/b pt average 25% PO intake since admission. (MODIFIED, ongoing) Intervention 1. Recommend NA2G diet to liberalize options. 2. change Ensure high protein to TID Monitor/Evaluate Goal: PO intake at least 75% of estimated needs (not met, ongoing) Monitor: PO intake, Labs, GI function, ONS intake F/U in 3-5 days as moderate risk 07/28-3
--- NOTE | 2020-07-25 14:34 | NUR ---
Intervention 1. Recommend NA2G diet to liberalize options. 2. change Ensure high protein to TID
[2020-07-25 17:29] VITALS: BP 159/98
--- NOTE | 2020-07-25 18:14 | NUR ---
PT SITTING IN BED. PT VISIBALLY AGITATED WHEN TOUCHED AND CONTINUOUSLY MUMBLING. ZYPREXA AND DEPAKOTE ADMINISTERED. EDUCATED PT ON HEALTHY COPING MECHANISMS AND RELAXARTION TECHNIQUES. FURTHER TEACHING REQUIRED. BED IN LOWEST POSITION, SIDE RAILS UP, CALL LIGHT WITHIN REACH, SITTER AT BEDSIDE. WILL ENDORSE TO PM NURSE
[2020-07-25 20:00] VITALS: BP 145/100
--- NOTE | 2020-07-25 22:39 | NUR ---
Monitoring and assessing for bed placement however there has been no acceptance of this patient. Social Workers have been notified about our concerns to re evaluate for other options of placement.
[2020-07-26 06:00] VITALS: BP 115/61
--- NOTE | 2020-07-26 06:46 | NUR ---
Pt currently in bed alert but confused. Pt slept very well throughout the night. Restraints removed multiples times for assessment but re-applied due to pt safety. Pt attempts to get out of bed, scratch herself, and also attempts to pull her IV access out once restraints is removed. AM VS BP 115/61, p85, R 18, O2sat 96% on RA. No s/s of discomfort noted. Safety measures in place. Nursing sitter at bed side. Will continue to monitor and endorse care.
[2020-07-26 07:20] LABS: CALCIUM 8.7 mg/dL (8.5-10.1); CHLORIDE SERUM 109 mmol/L (98-107); CREATININE SERUM 0.8 mg/dL (0.6-1.0); GFR1 > 60 mL/min; GLUCOSE SERUM 86 mg/dL (74-106); POTASSIUM SERUM 4.4 mmol/L (3.5-5.1); SODIUM SERUM 144 mmol/L (136-145)
[2020-07-26 07:48] LABS: BASOPHIL % 0.4 % (0-2); RED CELL DISTRIBUTION WIDTH 14.4 % (11.5-14.5)
[2020-07-26 07:51] LABS: PLATELET COUNT 99 x10^3mcL (130-400)
--- NOTE | 2020-07-26 08:08 | NUR ---
RECIEVED REPORT FROM PM NURSE. PT LYING IN BED. A/O X1, ORIENTED ONLY TO SELF. RRR S1 S2 NOTED, PULSES EQUAL, PALPABLE, NO EDEMA NOTED. LUNG SOUNDS CLEAR THROUGHOUT, RA, BREATHING EVEN, UNLABORED. BOWEL SOUNDS ACTIVE X4. INCONTINENT. GENERALIZED WEAKNESS NOTED. RFA 22 G IV. WILL CONTINUE TO MONITOR
[2020-07-26 09:05] VITALS: BP 137/106
--- NOTE | 2020-07-26 09:57 | NUR ---
PT SITTING IN BED. ATE 10% OF BREAKFAST, REFUSES MORE FOOD AND DRINK AT THIS TIME. PT MUMBLING TO SELF AND ROCKING, VISIBALLY AGITATED. BREATHING EVEN, UNLABORED. WILL CONTINUE TO MONITOR. BED IN LOWEST POSITION, RAILS UP, CALL LIGHT WITHIN REACH, SITTER AT BEDSIDE.
--- NOTE | 2020-07-26 10:47 | NUR ---
PT SITTING IN BED, MUMBLING TO SELF. PT IN NO APPARENT DISTRESS OR DISCOMFORT. PERIPHERAL PULSES PALPABLE AND EQUAL. 2 FINGER SPACE BETWEEN RESTRAINTS AND HANDS. BED IN LOWEST POSITION, CALL LIGHT WITHIN REACH, RAILS UP, SITTER AT BEDSIDE.
[2020-07-26 12:54] VITALS: BP 128/96
--- NOTE | 2020-07-26 15:52 | NUR ---
PT SITTING IN BED VISIBALLY AGITATED. NOSE BLEED DUE TO PT PICKING NOSE. DR. GUERRERO TO VISIT PT, MADE AWARE OF SITUATION. PT LESS TENSE AT THIS TIME. BED IN LOWEST POSITION, SIDE RAILS UP, CALL LIGHT WITHIN REACH, SITTER AT BEDSIDE. WILL CONTINUE TO MONITOR
[2020-07-26 17:07] VITALS: BP 144/101
--- NOTE | 2020-07-26 17:09 | NUR ---
PT SITTING IN BED, VISIBALLY AGITATED. PT HAS POOR CONCENTRATION, AVOIDS EYE CONTACT, IS VERY TENSE, AND YELLS FREQUENTLY. HALDOL ADMNINISTERED. WILL CONTINUE TO MONITOR. BED IN LOWEST POSITION, CALL LIGHT WITHIN REACH, RAILS UP, SITTER AT BEDSIDE.
--- NOTE | 2020-07-27 06:36 | NUR ---
Pt currently in bed awake but confused with bilat soft wrist restraints in placed. Restraints removed multiple times this shift for assessment. Pt always tried to scratch her face, tried getting out of bed and also attempted to removed IV access once restraints is removed for assessment. Restraints still needed at this time due to pt safety. Nursing sitter at bed side. Will continue to monitor and endorse care to onconing shift RN.
[2020-07-27 09:26] VITALS: BP 110/64
--- NOTE | 2020-07-27 18:25 | NUR ---
DAY SHIFT Patient received awake and alert to herself. Able to communicate basic needs but rambles and speaks like a word salad. Unable to follow a coherent conversation. Admitted from another hospital for acute dehydration and KARAN. Hx of schizophrenia. Received with a sitter at bedside. On room air, tolerating well. Incontinent of /GI. Renal US showed bladder residual of 700cc - Dr Beckman was paged and Екатерина NEUROLOGY TECHNOLOGIST aware. Per physician notes - patient should have been received with NS @ 100cc. Not orders in eMAR, obtained order from NEUROLOGY TECHNOLOGIST. Noted to have generalized weakness - bed bound with a sitter present for safety. Received with IV on left FA. Mag was 1.7 today and phos 2.4 - replaced mag with 2gms IV and phose with 30 mmol Na Phos IV over [address] Beckman. UA, Creatine urine, sodium urine collected today with straight cath (order obtained from Dr Beckman). Still on 5250 hold pending discharge to a psych facilty. No complaints of nausea, vomiting, pain or respiratory distress.
--- NOTE | 2020-07-27 18:58 | NUR ---
DAY SHIFT Patient received awake and alert x 1 (name only). Able to communicate incoherently in yakut. Arrived to this facility due to suicidal ideation/ danger to self. Admitted for pancytopenia under a 5150 hold. On room air, tolerating well. Incontinent of GI/. Noted to have generalized weakness. No apparent s/sx of respiratory distress, pain, nausea or vomitting. Received with IV on right wrist - patent and flushing well. Reviewed MD notes and notes stated should be on D5 1/2 NS at 75cc/hr. Spoke with Dr Mcgraw and he added D5 1/2 NS @ 20cc/hr currently running. Patient has a poor appetite and takes extra time to feed. No signs of aspiration after meal consumption. Patient noted to be restless and combative at times when providing care. Currently on Ativan scheduled BID. , Christiano, was provided update. Pending discharge to psych facility.
--- NOTE | 2020-07-27 20:13 | NUR ---
PT RECIEVED SITTING IN HER BED, ALERT AND DISORIENTED. PT TALKING TO HERELF, UNABLE TO FOLLOW COMMANDS, UNABLE TO MAKE NEEDS KNOWN. PT EASILY GETS AGGITATED. RESP IS EVEN AND UNLBORED, LUNGS SOUNDS CLR BILATERALLY. RADIAL AND PEDAL PULSES PRESENT, NO EDEMA. ABD FLAT AND SOFT, ACTIVE BS PRESENT X4. IV SITE ON THE RFA PATENT AND FLUSHING WELL INFUSING D5 1/2 NS AT 20 ML /HR. BED TO LOWEST POSITION. CALL LIGHT WITHIN REACH, BED ALARM ON, SITTER AT BEDSIDE. CALL LIGHT WITHIN REACH. WILL CONT TO MONITOR FOR CHANGES IN CONDITION.
[2020-07-27 20:20] VITALS: BP 152/90
--- NOTE | 2020-07-27 21:40 | NUR ---
RESTRAINTS INITIATED PER DR. UGARTE VIA TELEPHONE ORDER. PT PULLING IV LINES, SCRATCHING SELF AT TIMES.
--- NOTE | 2020-07-28 06:22 | NUR ---
PT REMAINED IN BED RESTING COMFORTABLY WITH EYES CLOSED, NO C/O PAIN NO ACUTE DISTRESS NOTED. RESP IS EVEN AND UNLABORED, NEEDS ATTENDED AND MET. FREQUENT VISUAL MONITORING RENDERED. IV FLUIDS CONT INFUSING AT 20ML/HR. BED TO LOWEST POSITION, CALL LIGHT WITHIN REACH, SAFTY PROTOCOLS IN PLACED. WILL CONT TO MONITOR AND ENDORSE TO NEXT SHIFT NURSE.
--- NOTE | 2020-07-28 06:36 | NUR ---
[facility] to continue working on placement, up to this point [facility] has been unable to locate a psych unit willing to accept pt. Pt has been declined multiple times by nearly every facility, citing concerns of being unable to accomodate pt hx of dementia or unable to accomodate a pt that is unable to stand/walk and needs assistance with ADLs. [facility] has referred pt to geropsych units as well with similar concerns. Facilities that have not explicitly declined pt, but continually report being unable to take pt "today" include [facility], [place], [place], and [facility]. [facility] facilities [place] and [facility] have both declined pt.
[2020-07-28 06:47] VITALS: BP 113/69
--- NOTE | 2020-07-28 06:55 | NUR ---
PT CONTINUED TO BE ON RESTRAINTS. PT TOLERATING IT WELL.
[2020-07-28 13:00] VITALS: BP 118/78
[2020-07-28 16:00] VITALS: BP 115/80
--- NOTE | 2020-07-28 16:47 | NUR ---
[facility] continues to be unable to find accepting facility for this pt, see previous notes for reasoning.
--- NOTE | 2020-07-28 18:10 | NUR ---
PT. IS RESTING AT THIS TIME CALMLY WITH SITTER AT BEDSIDE MARIKA. SOFT WRIST RESTRAINTS INTACT, NO COMPLICATIONS. PT. REPOSITIONED Q.2HRS. REQUIRES FRQUENT CUEING TO EAT DURING MEALS, COMPLETE ASSIST WITH FEEDING. INCONT. OF B&B, FABI-CARE PROVIDED.
--- NOTE | 2020-07-28 19:30 | NUR ---
PATIENT RECEIVED. PATIENT IS RESTING IN BED. SOFT WRTISTS RESTRAINTS PLACED, CIRCULATION IS WITHIN NORMAL LIMITS. NO FACIAL GRIMACING. EYES CLOSED AND PATIENT RAMBLING SPEECH. BED IN LOW POSITION AND CIRCUIT CLERK AT BEDSIDE. NO SIGN OF RESP DISTRESS. HX OF DEMENTIA.
[2020-07-28 19:36] VITALS: BP 134/78
--- NOTE | 2020-07-29 01:33 | NUR ---
PATIENT EYES CLOSED. RESTRAINTS ARE ASSESSED, CIRCULATION WITHIN NORMAL LIMITS. NO RESP DISTRESS NOTED. BED IN LOW POSITION AND SYSTEMS SUPPORT OFFICER AT THE BEDSIDE.
--- NOTE | 2020-07-29 05:12 | NUR ---
AT this time there are no vacancy at any of the designated facilities . Will endorced to AM shift to [facility] to look for placement .
[2020-07-29 06:03] VITALS: BP 106/59
--- NOTE | 2020-07-29 06:10 | NUR ---
PATIENT RESTING IN BED. EYES CLOSED. NO SIGN OF DISTRESS. NO FACIAL GRIMACING. RESTRAINTS IN PLACE, CIRCULATION WITHIN NORMAL LIMITS. O2 98% ON ROOM AIR. DRAWSTRING KNOTTER AT THE BEDSIDE. FABI-CARE PROVIDED BY THE DRAWSTRING KNOTTER. PATIENT DISORINTED AND CONFUSED. ABLE TO RESPOND TO VERBAL COMMANDS. MOVES UPPER EXTRIMITES. PULLES IV LINE. BED IN LOW POSITION AND RESTRAINTS ASSESSMENT IN PLACE PER PROTCOL. WILL GIVE REPORT TO AM NURSE.
[2020-07-29 08:46] VITALS: BP 113/70
[2020-07-29 11:39] VITALS: BP 126/76
--- NOTE | 2020-07-29 15:08 | NUR ---
Follow-up Nutrition Assessment: [address]B JOSH MILAN 55F Dx: Pancytopenia, 5150 PMHx: HTN, Dementia, Spleen disorder, TBI, Chronic back pain PSHx: none noted Labs: (07/26) H/H 9.6/30L, Cl 109H *no other updated labs (07/25) Cl: 108H, BUN: 6L, H/H: 10.6/31L Meds: Ambien, Aricept, Depakote, Vasotec, vitamin B1, Folic Acid D5%, Haldol Diet: Cardiac diet PO Intake: (07/25) B: 35%, L: 10%, D: 10%, (07/27) B: 60%, L: 10% BMI: 24.9 Bed scale: 135#, (07/25): 137.7# Edema: none noted Last BM: 07/[address] Skin: blanchable redness noted to sacral/coccyx Irvin: [address] (07/25): at time of visit, pt was speaking to herself, unable to speak to pt. pt weighed 62.6 kg (137.7 lbs) at time of visit, pt was sitting up inbed. Pt's nurse reported that pt is not eating well and recommends ensure three times a day. Pt is tolerating regular texture at this time per nursing. Pt had a BM today per pt's primary nurse. RD Note (07/29/2020): Per progress note (07/28) pt is pending transfer to psych facility. Pt was seen sitting in bed and staring at RN during bedside visit. Per observation, pt's breakfast tray was by bedside and pt finished approximately 50%. Assessed pt's ensure high protein, and pt had approximately 90%. Per pt's sitter, pt did not have BM today. RN was feeding pt apple sauce by bedside during visit, and pt was able to tolerate. Estimated Nutritional Needs Based on ideal body weight (52kg) Energy: 4277-6918 kcal/day (25-30 kcal/kg for maintenance) Protein: 41-52 g/day (0.8-1 g/kg for maintenance) Fluid: 2416-0778 mL/day (1 mL/kcal) Nutrition Diagnosis: 1. Inadequate energy and protein intake r/t psych issue related poor PO intake a/e/b low average PO intake since admission. (modified, ongoing) Intervention 1. Recommend NA2G diet to liberalize options. 2. Continue Ensure high protein TID to provide additional 480kcal and 48g protein 3. Recommend Ensure enlive TID to provide 1050kcal and 60g protein once NA2G diet implemented. Recommendation provided to Dr. Walker in person, Dr. Walker acknowledged and said will change diet order. Monitor/Evaluate Goal: PO intake at least 75% of estimated needs (not met, ongoing) Monitor: PO intake, Labs, GI function, ONS intake F/U in 3-5 days as moderate risk 08/01-7
[2020-07-29 16:10] VITALS: BP 116/82
--- NOTE | 2020-07-29 19:30 | NUR ---
PT. REPORT RECIEVED FROM DAY SHIFT NURSE, PT. RESTING IN BED W/ EYES CLOSED, RR EVEN AND UNLABORED ON RA, CHEST RISE SYMT, NO ACUTE DISTRESS NOTED, 1:1 SITTER AT BEDSIDE, SOFT RESTRAINTS IN PLACE TO PREVENT PT. SELF HARM, RFA IV INTACT AND WNL, BED IN LOWEST POSITION, CALL LIGHT WITHIN REACH, SR UPX2, WILL CONT TO MONITOR.
[2020-07-30 01:05] VITALS: BP 91/53
--- NOTE | 2020-07-30 03:46 | NUR ---
PT. RESTING IN BED W/ EYES CLOSED, NO ACUTE CHANGE/DISTRESS NOTED, RR EVEN AND UNLABORED ON RA, CHEST RISE SYMT, BED IN LOWEST POSIITON, CALL LIGHT WIHIN REACH, SR UPX2, WILL CONT TO MONITOR.
--- NOTE | 2020-07-30 06:36 | NUR ---
PT. RESTING IN BED, NO FACIAL DROOP NOTED, CALM AT THIS MOMENT, NO ACUTE CHANGE/DISTRESS NOTED, RR EVEN AND UNLABORED ON RA, CHEST RISE SYMT, 1:1 SITTER AT BEDSIDE, SOFT RESTRAINTS IN PLACE TO PREVENT SELF HARM FROM THE PT, ALL SAFETY MEASURES IN PLACE, BED IN LOWEST POSITION, CALL LIGHT WTIHIN REACH, SR UPX2, WILL ENDORSE TO DAY SHIFT NURSE.
[2020-07-30 08:51] VITALS: BP 102/64
--- NOTE | 2020-07-30 10:23 | NUR ---
PT SLEEPING AND SNORING THIS MORNING. NO ACUTE DISTRESS NOTED. PT WOKE UP TO EAT BREAKFAST, MANAGED TO EAT 80%. PT IS CONFUSED, UNABLE TO ANSWER ANY QUESTIONS. BILAT SOFT WRIST RESTRAINTS ARE IN PLACE, AND CIRCULATION IS INTACT. SITTER IS AT BEDSIDE. WILL CONTINUE TO MONITOR PT THROUGHOUT THE SHIFT.
[2020-07-30 14:00] VITALS: BP 127/89
[2020-07-30 18:54] VITALS: BP 101/55
--- NOTE | 2020-07-30 19:10 | NUR ---
PT. REPORT RECIEVED FROM DAY SHIFT NURSE, PT. RESTING IN BED W/ EYES CLOSED, RR EVEN AND UNLABORED ON RA, CHEST RISE SYMT, 1:[address], SOFT RESTRAINTS IN PLACE TO PREVENT PT. SELF HARM, CIRCULATION WNL, BED IN LOWEST POSITION, CALL LIGHT WITHIN REACH, SRX2, WILL CONT TO MONITOR.
[2020-07-30 23:30] VITALS: BP 133/74
--- NOTE | 2020-07-31 04:56 | NUR ---
PT. RESTING IN BED W/ EYES CLOSED, RR EVEN AND UNLABORED ON RA, CHEST RISE SYMT, NO ACUTE CHANGE/ DISTRESS NOTED, 1:[address], SOFT RESTRAINTS IN PLACE TO PREVENT PT. SELF HARM, ALL SAFETY MEASURES IN PLACE, WILL CONT TO MONITOR.
[2020-07-31 04:58] VITALS: BP 126/68
--- NOTE | 2020-07-31 06:48 | NUR ---
PT. RESTING IN BED, 1:[address], SOFT RESTRAINTS IN PLACE TO PREVENT PT. SELF HARM, RR EVEN AND UNLABORED ON RA, CHEST RISE SYMT, ALL SAFETY MEASURES IN PLACE, WILL ENDORSE TO DAY SHIFT NURSE.
--- NOTE | 2020-07-31 06:48 | NUR ---
[facility] to continue working on placement for this pt, no openings overnight. [facility] has been unable to locate any facility willing/able to accomodate pt. Will follow up with S/W today regarding other placement options, as psych facilities do not seem to be an option at this time.
[2020-07-31 08:08] LABS: ALKALINE PHOSPHATASE 41 U/L (46-116); ALT/SGPT 16 U/L (14-59); AST/SGOT 16 U/L (15-37); BILIRUBIN TOTAL 0.36 mg/dL (0.20-1.00); CALCIUM 8.8 mg/dL (8.5-10.1); CARBON DIOXIDE 26.8 mmol/L (21-32); CHLORIDE SERUM 107 mmol/L (98-107); CREATININE SERUM 0.7 mg/dL (0.6-1.0); GFR1 > 60 mL/min; GLUCOSE SERUM 84 mg/dL (74-106); POTASSIUM SERUM 3.9 mmol/L (3.5-5.1); SODIUM SERUM 142 mmol/L (136-145); TOTAL PROTEIN, SERUM 6.2 g/dL (6.4-8.2)
[2020-07-31 08:13] LABS: ALBUMIN 2.9 g/dL (3.4-5.0)
--- NOTE | 2020-07-31 08:30 | NUR ---
RECEIVED PT FROM NIGHT NURSE. PT CONFUSED WITH GARBLED SPEECH. NO ACUTE CHANGES OR DISTRESS. SOFT WRIST RESTRAINTS IN PLACE, TO BE RENEWED IF NECESSARY @1200. VS STABLE. WILL CONTINUE TO MONITOR.
[2020-07-31 08:58] LABS: BASOPHIL % 0.4 % (0-2); PLATELET COUNT 84 x10^3mcL (130-400); RED CELL DISTRIBUTION WIDTH 16.1 % (11.5-14.5)
[2020-07-31 12:36] VITALS: BP 11/70
[2020-07-31 18:40] VITALS: BP 125/81
--- NOTE | 2020-07-31 20:00 | NUR ---
PT RESTING WITH EYES CLOSED. EASILY AROUSABLE WITH TACTILE STIMULI. PT WILL NOT OPEN EYES. PT YELLS AND IS COMBATIVE WHEN TOUCHED. PT OBSERVED TO BE CONFUSED. BREATH SOUNDS CLEAR. BREATHING EVEN AND UNLABORED ON ROOM AIR. DENIES CHEST PAIN AND PRESSURE. MARIKA SOFT WRIST RESTRAINTS NOTED, PT TOLERATING IT WELL. BOWEL SOUNDS ACITVE. NO C/O N/V AND ABD PAIN. IV SALINE LOCK INTACT ON THE RIGHT FOREARM AND IV ON LEFT WIRST INFUSING WITH D5 NS AT 20 ML/HR. MADE PT COFMORTABLE. PLACED CALL LIGHT WITH IN REACH. WILL CONTINUE TO MONITOR.
[2020-07-31 21:37] VITALS: BP 129/85
[2020-08-01] VITALS (8 sets, daily range): BP systolic 73–146; BP diastolic 40–90
--- NOTE | 2020-08-01 01:54 | NUR ---
PT RESTING WITH EYES CLOSED. PT TRYING TO GET OUT OF BED. IV CATH OBSERVED TO BE OUT LEFT WRIST. OTHER IV INTACT ON THE RIGHT FOREARM. MADE PT COMFORTABLE. WILL CONTINUE TO MONITOR.
--- NOTE | 2020-08-01 05:17 | NUR ---
[facility] still unable to find placement willing to accomdate patient.
--- NOTE | 2020-08-01 06:47 | NUR ---
NO SIGNIFICANT CHANGES NOTED. PT STILL SCREAMING AND COMBATIVE. MARIKA WRIST RESTRAINTS STILL INPLACE. PT TOLERATING IT WELL. WILL CONTINUE TO MONITOR.
--- NOTE | 2020-08-01 08:23 | NUR ---
RECEIVED PT FROM NIGHT NURSE. FOUND PT SLEEPING WITH EVEN BREATHING OBSERVED. SOFT WRIST RESTRAINTS IN PLACE. CIRCULATION TO EXTREMITIES INTACT. NO SIGNS OF ACUTE DISTRESS. WILL CONTINUE TO MONITOR.
--- NOTE | 2020-08-01 19:30 | NUR ---
PT WAS COOPERATIVE WITH ALL BUT AFTERNOON DOSE OF DEPAKOTE. BECAME AGITATED ONLY BRIEFLY AT TIMES. NO ACUTE DISTRESS NOTED. 97% SAO2 ON ROOM AIR. STILL AWAITING POSSIBLE TRANSFER TO PSYCH FACILITY. ENDORSED TO NIGHT NURSE.
--- NOTE | 2020-08-01 20:30 | NUR ---
At about 2021 LANDSCAPE CONTRACTOR found patient blood pressure to be very low . Initially 48/24 . She called the yun nurse who called the RN. rapid response was called . Blood sugar 122, OXGYEN ON ROOM AIR 98%, hr 58, . pt responds to sternal rub , screams and moves extremities with sternal rub . AT 2024 blood pressure went up to 77/41. Dr OSORIO was called he gave orders to DC ativan, bolus iv fluid 1 liter. Patient was put on tele . 2033 Heart rate 74, 2044 BLOOD PRESSURE 95/74 2134 blood pressure 110/58 2300 blood pressure 83/44 MD WAS NOtified by charge nurse , he get an order PRO Amatine 5 mg po TID, patient was given 1 dose . she was arousable and able to drink water and take the medicaiton was called back and he ordered and he ordered 2355 RN CALLED AND INFORMED IW SPOUSE OF THE INCIDENT
--- NOTE | 2020-08-01 23:48 | NUR ---
DR. JERRY PAGED AND CALLED BACK. MADE AWARE OF PATIENTS BP 83/53, 88/53. NO IVF AT THIS TIME. NO ORDER FOR IVF AND ORDERED MIDODRINE PO TID.
[2020-08-02] VITALS (8 sets, daily range): BP systolic 80–123; BP diastolic 53–81
--- NOTE | 2020-08-02 01:30 | NUR ---
BLOOD PRESSURE 93/53 PT states "what" when name is called HR rate , oxgyen saturation normal
--- NOTE | 2020-08-02 04:02 | NUR ---
Patient has not voided for the shift. Will monitor for another hour and will call MD if no change
--- NOTE | 2020-08-02 04:04 | NUR ---
PT ON RESTRAINS, SKIN ASSESSED EVERY 2 HOURS
--- NOTE | 2020-08-02 04:39 | NUR ---
BLOOD PRESSSURE 80/56 97% ON ROOM AIR Heart 56
--- NOTE | 2020-08-02 04:44 | NUR ---
Called the doctor as patients blood pressure was 84/54 and also has not voided all shift . Doctor gave orders for bladder scan q 6 hours, straight cath for volume greater than 400 , give another bolus of NS 500 CC
--- NOTE | 2020-08-02 07:15 | NUR ---
RECEIVED PT FROM NIGHT NURSE. BP STABLE AT 99/58. SHE IS SLEEPING WITH EVEN BREATHING OBSERVED. ALL VS WNL. SITTER PRESENT WITH PT. D51/2 NS RUNNING AT 20 ML/HR. NO SIGNS OF ACUTE DISTRESS. WILL CONTINUE TO MONITOR.
--- NOTE | 2020-08-02 07:52 | NUR ---
SPOKE TO PATIENT AND PROVIDED AN UPDATE, BLOOD PRESSURE BETTER
--- NOTE | 2020-08-02 11:55 | NUR ---
PT'S WAS UPDATED ON PT CONDITION AND SPOKE TO PT BRIEFLY.
--- NOTE | 2020-08-02 14:20 | NUR ---
BLADDER SCAN COMPLETE, READING 229 ML URINE RETAINED POST VOID. WITHIN PARAMETERS NOT TO INITIATE CATHETE (<400).
--- NOTE | 2020-08-02 20:00 | NUR ---
PATIENT IN BED. NO S/S OF DISTRESS. SITTER IN ROOM. PATIENT IS CALM. NO S/S OF DISTRESS. VITALS SIGNS WITHIN LIMITS. PATIENT IS AROUSABLE. BED IN LOWEST POSITION, CALL LIGHT WITHIN REACH. WILL CONTINUE TO MONITOR.
--- NOTE | 2020-08-02 20:43 | NUR ---
BP WAS CONTROLLED CONSISTENTLY THROUGHOUT SHIFT (SEE MAR). MIDODRINE WAS GIVEN ORDERED. PT WAS COMPLIANT WITH ALL MEDICATION ADMINISTRATION. SOFT RESTRAINTS TO WRISTS WERE RENEWED @1200. CIRCULATION REMAINS WNL. APPETITE GOOD FOR BREAKFAST WITH 80% EATEN. SUBSEQUENT MEALS, SHE SHOWED POORER APPETITE. NO ACUTE DISTRESS NOTED THROUGHOUT SHIFT. ENDORSED CARE TO NIGHT NURSE.
--- NOTE | 2020-08-03 | NUR ---
PATIENT CALM IN BED. RESTRAINTS CHECKED EVERY HOUR AND PRN. CIRCULATION WNL, PATIENT OFFERED LIQUID AND TOILETING. SITTER IN ROOM. ASSISTED WITH ADL. PATIENT IS AROUSABLE. VITALS SIGNS WNL. BED IN LOWEST POSITION, CALL LIGHT WITHIN REACH. WILL CONTINUE TO MONITOR.
--- NOTE | 2020-08-03 03:26 | NUR ---
Call center still trying to find placement , at this time there are no vacancy at any of the designated facilities.Will continue to make calls for placement.
[2020-08-03 04:35] VITALS: BP 102/60
--- NOTE | 2020-08-03 08:00 | NUR ---
RECEIVED PATIENT IN BED, AWAKE/CONFUSED, SITTER ASSIST WITH BREAKFAST. NO DISTRESS NOTED. PATIENT SCREAMED WHEN I TRY TO ASSESS. NOTED IV TO RFA INTACT AND INFUSING IVF AT 50ML/HR, CONT TO MONITOR.
--- NOTE | 2020-08-03 08:28 | NUR ---
Received report. There are no beds at this time. [facility] still working on placement.
--- NOTE | 2020-08-03 08:32 | NUR ---
T26 ST WITH HR 118 NOTED.
[2020-08-03 09:05] VITALS: BP 115/70
--- NOTE | 2020-08-03 09:25 | NUR ---
PATIENT AWAKE/ALERT IN BED, CALM AT THIS TIME. GAVE MEDS WITH APPLESAUCE PATIENT TOOK ALL AND TOLERATED. SITTER REMAIN AT BEDSIDE. CONT TO MONITOR
--- NOTE | 2020-08-03 12:30 | NUR ---
ACCOUNTS RECEIVABLE COLLECTOR CAME OUT TO TELL RN PATIENT FULL OUT HER IV SITE, RN ASSESS IV SITE PATIENT REFUSED, NO BLEEDING NOTED. GAVE SEROQUEL PO WITH APPLESAUCE PATIENT TOOK ALL HER MEDS. CONT TO MONITOR.
--- NOTE | 2020-08-03 15:14 | NUR ---
Follow-up Nutrition Assessment: Lulu Blair J - 55F Dx: Pancytopenia, 5150 PMHx: HTN, Dementia, Spleen disorder, TBI, Chronic back pain PSHx: none noted Labs: (*07/31) WBC 3.9L, H/H 10/30L, POCBG 122H, ALKPHOS 41L, ALB 2.9L (07/26) H/H 9.6/30L, Cl 109H *no other updated labs Meds: Ambien, Aricept, Depakote, Vasotec, vitamin B1, Folic Acid D5%, Haldol Diet: Cardiac diet PO Intake: average PO 47% X last 6 meals BMI: 24.9 Bed scale: 135#, (07/25): 137.7# Edema: none noted Last BM: 07/01 pt is incontinent per BM group Skin: blanchable redness noted to sacral/coccyx Irvin: [address] note (07/29/2020): Per progress note (07/28) pt is pending transfer to [facility] facility. Pt was seen sitting in bed and staring at RN during bedside visit. Per observation, pt's breakfast tray was by bedside and pt finished approximately 50%. Assessed pt's ensure high protein, and pt had approximately 90%. Per pt's sitter, pt did not have BM today. RN was feeding pt apple sauce by bedside during visit, and pt was able to tolerate. RD note (08/03/20): Patient seen at bedside, speech is still garbled. But able to speak to Sitter. She ate well this morning, about 50%. Half of her eggs, her toast, a few bites of applesauce/ yogurt. And drank of her Ensure for breakfast. S/P hypoglycemic episode per MD progress note. Currently recording average PO 47% X last 6 meals. Also running on D5 IVF for glycemic control. With current intake meeting (63% of calorie needs and 100% of protein needs with added ONS). Will continue to monitor and provide nutrition support when needed. Estimated Nutritional Needs Based on ideal body weight (52kg) Energy: 8185-4304 kcal/day (25-30 kcal/kg for maintenance) Protein: 41-52 g/day (0.8-1 g/kg for maintenance) Fluid: 4170-7178 mL/day (1 mL/kcal) Nutrition Diagnosis: 1. Inadequate energy and protein intake r/t psych issue related poor PO intake a/e/b low average PO intake since admission. (modified, ongoing) Intervention 1. Recommend NA2G diet to liberalize options. 2. Continue Ensure high protein TID to provide additional 480kcal and 48g Protein. 3. On F/U if oral intake drops below 50% consider trial EN Nutrition Support via NGT of Jevity 1.2 with a goal of 40ml/hr. Provides: 960mls, 1152 total kcals, 53gm protein, and 775mls water. 4. Consider FWF of 50mls Q6hrs. Will meet (75% of energy needs and 100% of protein needs.) RD to consider advancement or modifications on follow up. 5. Will consider PPN support if EN is not tolerated/ not appropriate. Monitor/Evaluate Goal: PO intake at least 75% of estimated needs (not met, ongoing), consider EN on f/u Monitor: PO intake, Labs, GI function, ONS intake F/U in 3-5 days as moderate risk 08/06-
--- NOTE | 2020-08-03 16:53 | NUR ---
PATIENT RESTING IN BED CALM, INFORM PATIENT WILL BE PUTTING NEW IV SITE PATIENT AGREE, NEW IV STARTED BY STUDENT NURSE MARINA WITH INSTRUCTOR, RH #20G SECURED, PATENT AND FLUSH FREELY NO INFILTRATION NOTED. WRAPPED W/ KERLIX TO PREVENT PATIENT PULLING OUT. CONT TO MONITOR.
[2020-08-03 18:26] VITALS: BP 127/79
--- NOTE | 2020-08-03 18:40 | NUR ---
PATIENT LAYING IN BED ATE FEW SPOONFUL APPLESAUCE, REFUSED THE REST OF THE MEAL. CONT ENC PO INTAKE. MOSTLY CRIED WHEN TALK TO PATIENT. SITTER REMAIN AT BEDSIDE.
--- NOTE | 2020-08-03 20:59 | NUR ---
Call center aware at this time there are still no vacancy at any of the designated facilities.
[2020-08-03 21:49] VITALS: BP 138/78
--- NOTE | 2020-08-04 01:10 | NUR ---
ASSESSED PT AT SHIFT CHANGE FROM DAY RN. PT IN ROOM AND TALKING TO HERSELF. PT PULLING ON SHEETS AND APPREHENSIVE. PT ALERT AND ORIENTEDX1 AND IS ALTERED TO PLACE AND TIME. PT CURRENTLY IN SOFT BILATERAL WRIST RESTRAINTS. NO SIGNS OF ALTERATION IN SKIN INTEGRITY OR CIRCULATION. LUNG SOUNDS CLEAR BILATERALLY AND PT ON RA WITH NO SOB NOTED. S1 AND S2 HEARD UPON AUSCULTATION, DENIAL OF CHEST PAIN. PT BOWEL SOUNDS ACTIVE X4 WITH SOFT NON TENDER STOMACH UPON PALPATION. PT ABL TO MOVE SELF IN BED INDEPENDENTLY. PULSES STRONG, AND CAPILLARY REFILL LESS THAN 3 SEC IN UPPER AND LOWER EXTREMITIES. WILL CONTINUE TO MONITOR PATIENT AT THIS TIME. SITTER PRESENT IN ROOM.
--- NOTE | 2020-08-04 02:52 | NUR ---
I HAVE REVIEWED THE DATA COLLECTION BY CHELSIE SERVIN ENTERED ON (DATE/TIME):08/03/20 7P-7A I CONCUR WITH THE DATA AND ANY EXCEPTIONS OR COMMENTS ARE LISTED BELOW:
--- NOTE | 2020-08-04 04:40 | NUR ---
PT RESTED THROUGH THE NIGHT WITH INCREASED RESTLESSNESS AROUND 0300 FORWARD. PT HAD EPISODES OF SCREAMING AND RESTLESSNESS WITH SITTER. OVERALL WAS CALM AND QUIET. PT STILL NEEDING APPLESAUCE WITH MEDICATIONS BUT TOLERATES IT WELL. PT DOING WELL ON RA AND NO COMPLAINTS OF PAIN AT THIS TIME. PT STILL APREHENSIVE BUT FOLLOWS COMMANDS. ALERT AND ORIETNTED ONLY TO PERSON. WILL CONTINUE TO MONITOR AND SHARE WITH ONCOMING RN.
--- NOTE | 2020-08-04 07:43 | NUR ---
RECEIVED PT FROM WILLIE ZAMORA NURSE. TELE #26, NSR. PT DISTRESSED THIS AM, STATES "OH ITS 1030, I'VE GOTTA GET HOME". A/OX1. BREATHING EVEN/UNLABORED ON RA, IN NO ACUTE RESP DISTRESS. PT INCONTINENT. GEN WEAKNESS NOTED, FALL RISK. PT IN NO APPARENT PAIN AT THIS TIME. IV TO R HAND PATENT, CDI, SL. BILAT SOFT WRIST RESTRAINTS IN PLACE. SITTER AT BEDSIDE. ALL NEEDS MET, WILL CONT TO MONITOR.
[2020-08-04 08:00] VITALS: BP 122/75
--- NOTE | 2020-08-04 08:26 | NUR ---
PT CRYING, PULLED OUT IV TO RHAND. CATHETER INTACT. WILL INSERT NEW IV.
--- NOTE | 2020-08-04 09:19 | NUR ---
NEW IV 22 G INSERTED TO RFA, PATENT, SDL, CDI.
--- NOTE | 2020-08-04 11:44 | NUR ---
PT AA0X1, CONFUSED. CONTINUES TO BE RESTLESS, PULLING AT LINES. BREATHING EVEN/UNLABORED ON RA. PT REPORTS NO PAIN AT THIS TIME. SITTER AT BEDSIDE. ALL NEEDS MET. SOFT BILAT WRIST RESTRAINTS APPLIED. WILL CONT TO MONITOR.
--- NOTE | 2020-08-04 16:34 | NUR ---
[facility] still monitoring notes.No available vancancies at this time [facility]
--- NOTE | 2020-08-04 16:58 | NUR ---
PT URINATED INCONTINENT, PROVIDED PERICARE, APPLIED BARRIER OINTMENT TO INNER THIGHS, REDDNESS NOTED. PICTURE TAKEN, PHOTO LEFT IN CHART. PT CRYING IN DISTRESS, PULLING AT LINES AND PUSHING AWAY STAFF, SAYING TO "JUST GIVE ME A MOMENT!", AAOX1. BREATHING EVEN/UNLABORED ON RA. PT REPORTS NO PAIN. ALL NEEDS MET. WILL CONT TO MONITOR.
[2020-08-04 17:00] VITALS: BP 113/80
--- NOTE | 2020-08-05 05:41 | NUR ---
Call Center unable to find placement , thru the whole shift , will endorsed to AM shift to continue to find placement.
[2020-08-05 06:14] VITALS: BP 121/72
--- NOTE | 2020-08-05 08:12 | NUR ---
[facility] still unable to find facility willing to accept. Facilities cite reasoning as pt inability to stand/walk as well as being in restraints. Facilities all require at least 4-24 hours restraint free prior to being accepted.
--- NOTE | 2020-08-05 12:52 | NUR ---
PT. RECEIVED IN BED AT 0700 WITH SUPERVISOR BUFFING AND PASTING AT BEDSIDE, MARIKA. SOFT WRIST RESTRAINTS IN PLACE WITH NO COMPLICATIONS NOTED. PT. RESPONDED TO VERBAL STIMULI BUT HER TONE WAS LOW AND OFTEN MUMMBLING. NEEDS ARE ANTICIPATED, REPOSITIONED PT. MADE COMFORTABLE IN NO ACUTE DISTRESS.
[2020-08-05 13:47] VITALS: BP 124/69
--- NOTE | 2020-08-05 20:07 | NUR ---
PT RECIEVED AWAKE CONFUSED REG RESP NO SOB R/A SAT 96%,HL TO THE RFA SITE PATENT AND INTACT,ABDO IS SOFT WITH ACTIVE BOWEL SOUNDS,PT ON TELE MONITOR AND IN NSR NO ECTOPY OR CHEST PAIN AT THIS TIME,PT HAS MARIKA SOFT WRIST RESTRIANTS,BED IN THE LOW POSITION AND LOCKED,KEPT CLEAN AND DRY TO TOUCH,CALL LIGHT EASY REACHD AND WILL CONTINUE TO MONITOR.
[2020-08-05 21:23] VITALS: BP 126/92
--- NOTE | 2020-08-05 21:41 | NUR ---
Per Psych MD assessment and plan, no recommendation for further psych placement. Will continue to monitor if placement for inpatient psych is recommended
[2020-08-06 05:45] VITALS: BP 98/57
--- NOTE | 2020-08-06 06:58 | NUR ---
PT IN BED SITTING UP TALKING TO HERSELF INCOHERENTLY. A/O X1, CONFUSED AND DISORIENTED, UNABLE TO FOLLOW COMMAND, UNABLE TO MAKE NEEDS KNOWN. REMAINED ON 1:1 MONITORING FOR SAFETY. NO C/O PAIN, NO ACUTE DISTRESS NOTED. RESP IS EVEN AND UNLABORED, NEEDS ATTENDED AND MET. FREQUENT VISUAL MONITORING RENDERED. WILL CONT TO MONITOR FOR CHANGES IN CONDITION AND ENDORSE TO NEXT SHIFT NURSE
[2020-08-06 07:39] LABS: BASOPHIL % 0.1 % (0-2)
[2020-08-06 07:59] LABS: ALKALINE PHOSPHATASE 51 U/L (46-116); ALT/SGPT 19 U/L (14-59); AST/SGOT 14 U/L (15-37); BILIRUBIN TOTAL 0.5 mg/dL (0.20-1.00); CALCIUM 8.9 mg/dL (8.5-10.1); CARBON DIOXIDE 25.8 mmol/L (21-32); CHLORIDE SERUM 104 mmol/L (98-107); CREATININE SERUM 0.7 mg/dL (0.6-1.0); GFR1 > 60 mL/min; GLUCOSE SERUM 94 mg/dL (74-106); POTASSIUM SERUM 4.1 mmol/L (3.5-5.1); SODIUM SERUM 141 mmol/L (136-145); TOTAL PROTEIN, SERUM 6.5 g/dL (6.4-8.2)
[2020-08-06 08:03] VITALS: BP 118/82
[2020-08-06 08:06] LABS: ALBUMIN 3.3 g/dL (3.4-5.0)
[2020-08-06 08:21] LABS: RED CELL DISTRIBUTION WIDTH 15.3 % (11.5-14.5)
[2020-08-06 08:22] LABS: PLATELET COUNT 123 x10^3mcL (130-400)
[2020-08-06 12:00] VITALS: BP 122/74
[2020-08-06 17:35] VITALS: BP 145/79
--- NOTE | 2020-08-06 18:20 | NUR ---
PT. CONTINUES TO REQUIRE RESTRAINTS DUE TO PULLING LINES, OCCASIONAL TEARFUL OUTBURST NOTED. RESTRAINTS RELEASED Q.2HRS AND PT. REPOSITIONED. ENC TO PARTIICIPATE IN CARE. PT. IN NO DISTRESS AT THIS TIME.
--- NOTE | 2020-08-06 19:54 | NUR ---
RECEIVED PT IN BED AWAKE, TALKING TO HERSELF, SITTING ON HER BED. PT IS ALERT, CONFUSED AND DISORIENTED, UNABKLE TO FOLLOW COMMANDS, UNABLE TO MAKE NEEDS KNOWN, SPEECH GARBLED, UNABLE TO CARRY COHERENT CONVERSATION. RADIAL AND PEDAL PULSES PRESENT, NO EDEMA NOTED. ON TELE 26, NO C/O CHEST PAIN. ABD ROUND AND SOFT, ACTIVE BS PRESENT X4 NO NVD, PT INCONTINENT BOTH B/B. SKIN IS WARM, AND DRY, SOME REDNESS NOTED TO COCCYX AND INER THIGH, OPEN TO AIR KEEP CLEAN AND DRY. IV SITE TO THE RFA, PATENT AND FLUSHING WELL. PT EASILY GET AGGITATED WITH LABILE MOOD. 1:1 SITTER AT BED SIDE.
--- NOTE | 2020-08-06 20:10 | NUR ---
No Psych MD notes for today 08/06/2020. Per psych MD notes 08/05/2020 assessment and plan, no recomendation for psych placement. Patient's 5150 has . No new 5150 faxed to the Call Center. If patient is needeing placement for psych inpatient, please fax new 5150 to [phone]
--- NOTE | 2020-08-07 06:41 | NUR ---
PT IN BED SITTING IN BED TALKING TO HERSELF, EASILY GETS AGGITATED BUT IS REDIRECTABLE. NO C/O PAIN, NO ACUTE DISTRESS NOTED. RESP IS EVEN AND UNLABORED, NEEDS ATTENDED AND MET, FREQUENT VISUAL MONITORING RENDERED. BED TO LOWEST POSITION, I:I SITTER AT BED SIDE, CALL LIGHT WITHIN REACH. WILL CONT TO MONITOR AND ENDORSE CARE TO NEXT SHIFT NURSE.
[2020-08-07 07:27] VITALS: BP 128/77
--- NOTE | 2020-08-07 07:30 | NUR ---
RECEIVED PATIENT IN BED WITH BILAT SOFT WRIST RESTRAINTS IN PLACE. ALERT CONFUSED. RESTRAINTS RELEASED AND ROM PROVIDED, PATIENT PULLS AT LINES. INCONT OF BOWEL AND BLADDER. TELE 26 NSR. HL RT F/A PATENT 22G. RESP EVEN AND UNLABORED, LUNGS CLEAR ON ROOM AIR.
[2020-08-07 16:25] VITALS: BP 123/81
--- NOTE | 2020-08-07 18:48 | NUR ---
PATIENT REMAINS IN BED WITH BILAT SOFT WRIST RESTRAINTS ON. IVF INFUSING WELL, SITE PATENT. PATIENT REMAINS CONFUSED, YELLS OUT AND ATTEMPTS TO PULL OUT LINES. Z GURAD APPLIED TO PATIENT'S PER AREA AND BUTTOCKS. NO ACUTE DISTRESS NOTED.
[2020-08-07 19:56] VITALS: BP 135/85
--- NOTE | 2020-08-07 20:00 | NUR ---
PATIENT RECEIVED AWAKE, ALERT, ORIENTED X1 IN BED, GARBLED, TALKS TO SELF. RESPIRATION EVEN AND UNLABORED, ON ROOM AIR. ONGOING D5 1/2 NS AT 50 CC/HR INFUSING WELL AT THE R FOREARM. INCONTINENT OF BOWEL AND BLADDER, LBM /. POOR APPETITE. GENERALIZED WEAKNESS, TOTAL CARE. ON BILATERAL SOFT WRIST RESTRAINTS FOR SAFETY. REDNESS TO COCCYX, FABI AREA AND INNER THIGH, BARRIER CREAM APPLIED. ON TELE #26. PLACED BED IN THE LOWEST POSITION. SAFETY OBSERVED. WILL CONTINUE TO MONITOR.
--- NOTE | 2020-08-07 20:27 | NUR ---
Per psych MD notes assessment and plan, continue current medication and pending placement option. Will continue to monitor documentation
[2020-08-08 05:33] VITALS: BP 122/80
--- NOTE | 2020-08-08 06:28 | NUR ---
PATIENT AWAKE, ALERT, CONFUSED IN BED. EPISODES OF RESTLESSNESS. ON BILATERAL SOFT WRIST RESTRAINTS FOR SAFETY. IV SITE NO SIGN OF INFILTRATION. INCONTINENT OF URINE. KEPT CLEAN AND DRY. PLACED BED IN THE LOWEST POSITION. PLACED CALL LIGHT WITHIN REACH AT ALL TIMES.
[2020-08-08 08:10] VITALS: BP 136/96
--- NOTE | 2020-08-08 10:00 | NUR ---
SEEN IN BED AWAKE, ALERT, CONFUSED, APPEARS AGITATED, YELLING OUT LOUD STATED LEAVE ME ALONE GET OUT FROM MY HOUSE, REORIENTATION PROVIDED, REFUSED APPLESAUCE, AM SCHEDULED MEDS CRUSHED AND MIXED WITH ORANGE JUICE, ENCOURAGED TO DRINK AND FINISH, TOOK SOMETIME FOR PATIENT TO FINISH IT. NO SOB NOTED, BREATHING E/U ON ROOM AIR. MARIKA SOFT WRIST RESTRAINT INPLACED WITH (+) CMS. NO ANY DISTRESS. WILL CONTINUE TO MONITOR.
--- NOTE | 2020-08-08 11:43 | NUR ---
ENDORSED CARE TO LJ SOTOMAYOR.
--- NOTE | 2020-08-08 12:27 | NUR ---
RECIEVED PT FROM SUPIN. PT RESTING COMFORTABLY IN BED. NO SIGNS OF ACUTE CHANGE OR DISTRESS NOTED. BILATERAL SOFT WRIST RESTRAINTS NOTED. WILL CONTINUE TO MONITOR.
[2020-08-08 12:36] VITALS: BP 148/91
--- NOTE | 2020-08-08 14:11 | NUR ---
PT RESTING IN BED, TALKING GIBBERISH TO SELF. NO SIGNS OF ACUTE CHANGE OR DISTRESS NOTED. WILL CONTINUE TO MONITOR.
[2020-08-08 20:21] VITALS: BP 126/93
--- NOTE | 2020-08-08 23:08 | NUR ---
MEDICATED PT WITH PM MEDS , CARE GIVEN PT TOLERATED WELL , HL PATENT , WRIST RESTRANING INPLACE , SKIN INTACT.
[2020-08-09 06:10] VITALS: BP 143/92
--- NOTE | 2020-08-09 06:22 | NUR ---
TOTAL CARE , BATH LINEN CHEANGED , PT'S CALM AT THE MOMENT , TELE NSR , PIV INTACT INFUISING WELL.
--- NOTE | 2020-08-09 07:30 | NUR ---
RECEIVED PATIENT IN BED WITH BILAT SOFT SRIST RESTRAINTS IN PLACE. ALERT CONFUSED, PULLS AT LINES. SPEECH GARBLED, AND YELLS OUT AT TIMES. HL PATENT, FLUSHED WELL. TELEL 26 NSR. RESP EVEN AND UNLABORED, LUNGS CLEAR ON ROOM AIR. RESTRAINTS RELEASED AND ROM PROVIDED PER PROTOCOL. PATIENT CONTINUES TO PULL AT LINES.
[2020-08-09 11:45] VITALS: BP 151/90
--- NOTE | 2020-08-09 11:47 | NUR ---
PATIENT'S PLAN OF CARE WAS DISCUSSED AND REVIEWED WITH HEAVY EQUIPMENT OPERATING ENGINEER:TABATHA AGUILAR I HAVE REVIEWED THE DATA COLLECTION BY HEAVY EQUIPMENT OPERATING ENGINEER (NAME):TABATHA AGUILAR ENTERED ON (DATE/TIME):08/09/20. I CONCUR WITH THE DATA AND ANY EXCEPTIONS OR COMMENTS ARE LISTED BELOW:
--- NOTE | 2020-08-09 14:21 | NUR ---
PATIENT REMAINS IN BED WITH BILAT SOFT WRIST RESTRAINTS IN PLACE. NO CHANGE IN CONDITIION NOTED, CONTINUES TO BE CONFUSED AND ATTEMPTING TO PULL AT HER LINES. WILL CONTINUE TO MONITOR. RESTRAINTS RELEASED AND ROM PROVIDED, AND REAPPLIED PER PROTOCOL.
--- NOTE | 2020-08-09 15:58 | NUR ---
PATIENT APPEARS TO BE RESTING WELL AT THIS TIME. BILAT SOFT WRIST RESTRAINTS IN PLACE. NO ACUTE DISTRESS NOTED.
[2020-08-09 17:09] VITALS: BP 144/87
--- NOTE | 2020-08-09 18:23 | NUR ---
PAITENT REMAINS IN BED. NO CHANGE IN CONDITION NOTED.
--- NOTE | 2020-08-09 20:48 | NUR ---
PT IN BED ON RESTRAINT FOR SAFETY , NO ACUTE DISTRESS NOTED, HL PATENT.
[2020-08-09 21:38] VITALS: BP 130/60
[2020-08-10 05:58] VITALS: BP 116/66
--- NOTE | 2020-08-10 06:06 | NUR ---
PT'S VERY RESTLESS SCREAMINMG , SOFT RESTRANT IN PLACE , TELE ST HR 102. HL PATENT . END OF SHOFT CARE DONE .
--- NOTE | 2020-08-10 07:15 | NUR ---
REC'VD PT FROM NIGHT RN. PT AWAKE AND ALERT. PT CONFUSED AND APPEARS TENSE. RES E/U. TELE MONITOR 26 [address]. IV SITE TO R WRIST INFUSING WELL. NO ACUTE DISTRESS NOTED. DENIES PAIN/PRESSURE. AT THIS TIME
[2020-08-10 09:23] VITALS: BP 138/89
[2020-08-10 11:54] VITALS: BP 125/85
--- NOTE | 2020-08-10 13:00 | NUR ---
PT TRYING TO GET OUT OF BED AND SCREAMING. NOTED THAT THE BED IS SOILED. ASSISTED PT BACK IN BED. CLEANED THE PATIENT AND CHANGED LINENS. REPOSITIONED SOFT WRIST RESTRAINT BILATERALLY.
--- NOTE | 2020-08-10 13:06 | NUR ---
PT AGITATED AND TRYING TO BITE RN, GIVEN HALDOL PER EMAR
--- NOTE | 2020-08-10 14:34 | NUR ---
DR JERRY MADE AWARE THAT PATIENT IS AGITATED. INCREASED HALDOL DOSE.
--- NOTE | 2020-08-10 15:57 | NUR ---
Follow-up Nutrition Assessment: Lulu Blair - 55F Dx: Pancytopenia, 5150 PMHx: HTN, Dementia, Spleen disorder, TBI, Chronic back pain PSHx: none noted Labs: (08/06) alb: 3.3, BMP wnl, H/H: 10.2/31% (*07/31) WBC 3.9L, H/H 10/30L, POCBG 122H, ALKPHOS 41L, ALB 2.9L (07/26) H/H 9.6/30L, Cl 109H *no other updated labs Meds: Seroquel, Lactulose, Namenda, Aricept, Depakote, Midodrine, D5%, Haldol Diet: Cardiac diet PO Intake: po intakes 10-65% in past week, avg avg 40%, not improved since last assessment BMI: 24.9 Bed scale: (08/10) 143#, (08/03) 135#, (07/25): 137.7# Edema: none noted Last BM: 08/08 Skin: blanchable redness noted to sacral/coccyx Irvin: 13 RD note (08/03/20): Patient seen at bedside, speech is still garbled. But able to speak to Sitter. She ate well this morning, about 50%. Half of her eggs, her toast, a few bites of applesauce/ yogurt. And drank her Ensure for breakfast. S/P hypoglycemic episode per MD progress note. Currently recording average PO 47% X last 6 meals. Also running on D5 IVF for glycemic control. With current intake meeting (63% of calorie needs and 100% of protein needs with added ONS). Will continue to monitor and provide nutrition support when needed. RD note (08/10): behavioral health case manager helping with placement options, pt continues to appear agitated and screams at staff, per RN pt tried to bite her and is constantly screaming. Says she continues to drink her ensure but is not eating well overall. Estimated Nutritional Needs Based on ideal body weight (52kg) Energy: 9236-1824 kcal/day (25-30 kcal/kg for maintenance) Protein: 41-52 g/day (0.8-1 g/kg for maintenance) Fluid: 8708-9750 mL/day (1 mL/kcal) Nutrition Diagnosis: 1. Inadequate energy and protein intake r/t psych issue related poor PO intake a/e/b low average PO intake since admission. (modified, ongoing) Intervention 1. Recommend NA2G diet to liberalize options. 2. Continue Ensure high protein TID to provide additional 480kcal and 48g Protein. 3. On F/U if oral intake drops below 50% consider trial EN Nutrition Support via NGT of Jevity 1.2 with a goal of 40ml/hr. Provides: 960mls, 1152 total kcals, 53gm protein, and 775mls water. 4. Consider FWF of 50mls Q6hrs. Will meet (75% of energy needs and 100% of protein needs.) RD to consider advancement or modifications on follow up. 5. Will consider PPN support if EN is not tolerated/ not appropriate. Monitor/Evaluate Goal: PO intake at least 75% of estimated needs (not met, ongoing), consider EN on f/u Monitor: PO intake, Labs, GI function, ONS intake F/U in 3-5 days as moderate risk 08/13-
[2020-08-10 17:32] VITALS: BP 137/104
--- NOTE | 2020-08-10 20:00 | NUR ---
RECEIVED PT IN BED, APPEARS TO BE SLEEPING IN NO DISTRESS, EYES CLOSED. PT IS ORIENTED X1, ANSWERS TO HER NAME. EASILY AROUSABLE. EASILY ANGERED AT TIMES. AGIATED WHEN TOUCHED. NO TELE MONITOR NOTED. DENIES CHEST PAIN. LUNG SOUNDS CLEAR. BS ACTIVE IN ALL FOUR QUADS. NO ABD PAIN NOTED. LAST BM TODAY. INCONTINENT OF BOWELS. GENERALIZED WEAKNESS. REDNESS TO INNER THIGH AREA, CREAM PROVIDED. NO EDEMA NOTED TO BLE. PT ON D5 1.2 NS AT 50ML/HR TO RIGHT WRIST, WRAPPED WITH GAUZE, PATENT. PT HAS BILATERAL SOFT WRIST RESTRAINTS, CIRCULATION PATENT. INITIAL ASSESSMENT COMPLETED. CALL LIGHT WITHIN REACH. BED IS IN LOWEST POSITION. WILL CONTINUE TO MONITOR CLOSELY.
[2020-08-10 21:48] VITALS: BP 125/74
--- NOTE | 2020-08-11 01:30 | NUR ---
PT APPEARS TO BE SLEEPING WITH EYES CLOSED. NO PAIN OR DISCOMFORT NOTED. IVF ONGOING. CIRCULATION INTACT. CALL LIGHT WITHIN REACH. BED IS IN LOWEST POSITION. WILL CONTINUE TO MONITOR CLOSELY.
--- NOTE | 2020-08-11 03:35 | NUR ---
PT AWAKE, ANXIOUS, RESTLESS, ATTEMPTING TO GET OOB, YELLING. HALDOL PO GIVEN AT THIS TIME. SECURED RESTRAINTS. CIRCULATION INTACT. CLEANED AND CHANGED PT AT THIS TIME, BM X1. WILL CONTINUE TO MONITOR CLOSELY.
[2020-08-11 06:22] VITALS: BP 123/90
--- NOTE | 2020-08-11 07:15 | NUR ---
REC'VD PT FROM NIGHT RN. PT SITTING UP ON BED. AWAKE AND ALERT. APPEARS TENSE AND TALKING TO HERSELF. RES E/U. IV SITE TO RFA. IVF INFUSING WELL. BILATERAL SOFT WRIST RESTRAINTS NOTED. CMS PRESENT. NO ACUTE DISTRESS NOTED.
--- NOTE | 2020-08-11 07:35 | NUR ---
ALL DUE MEDS GIVEN ORDERED. PT SITTING UP IN BED REMAINS ON BILATERAL SOFT WRIST RESTRAINTS. ENDORSED PT TO DAYSHIFT NURSE.
[2020-08-11 08:41] VITALS: BP 125/90
[2020-08-11 12:21] VITALS: BP 127/82
--- NOTE | 2020-08-11 16:06 | NUR ---
PT SCREAMING AND APPEARS AGITATED. GIVEN HALDOL PER EMAR. ALSO IV TO R WRIST INFILTRATED. INSERTED A 22 G IV TO RAC FLUSHED AND PATENT. IVF RESUMED.
--- NOTE | 2020-08-11 18:51 | NUR ---
AT 1800 - ATTEMPTED TO FEED PATIENT. PT HAD TWO BITES OF DINNER. PT IS SCREAMING AND REFUSING TO EAT. AT 1851 - PT SITTING UP ON BED. AWAKE AND ALERT. NO SIGNIFICANT CHANGES NOTED. NO ACUTE DISTRESS NOTED. BILAT SOFT WRIST RESTRAINT IN PLACE. RESTRAINT FLOW SHEET DONE. IV SITE TO [facility] CDI AND PATENT. IVF INFUSING WELL. WILL ENDORSE CARE TO NEXT SHIFT.
[2020-08-11 20:23] VITALS: BP 134/86
--- NOTE | 2020-08-12 00:52 | NUR ---
PATIENT ALERT AND RESTLESS IN BED. REFUSED TO TAKE PILLS. PLACED MEDICATIONS IN COFFEE AND PATIENT TOOK IT WITH A LOT OF ENCOURAGEMENT. PATIENT YELLING AND CRYING ON AND OFF. BILATERAL SOFT RESTRAINTS ON ORDERED. BED ALARM ON. BED IN ITS LOWEST POSITION.
[2020-08-12 05:30] VITALS: BP 142/88
--- NOTE | 2020-08-12 05:32 | NUR ---
[facility] still observing pt and is aware pt is on restraints , will continue to look for placement.
[2020-08-12 09:10] VITALS: BP 147/87
--- NOTE | 2020-08-12 10:24 | NUR ---
PT REMAINS AGITATED AND COMBATIVE. ABLE TO EAT ABOUT 10% OF BREAKFAST. ATTEMPTED TO REASSURE PT AND GIVE COMFORT. REPOSITION AND CLEAN. MARIKA. WRIST RESTRAINTS ON. SKIN AND CIRCULATION WNL. WILL CONT TO MONITOR.
--- NOTE | 2020-08-12 12:46 | NUR ---
NO BEDS AT THE FOLLOWING FACILITIES: [facility]
[2020-08-12 13:11] VITALS: BP 133/89
--- NOTE | 2020-08-12 15:18 | NUR ---
Follow-up Nutrition Assessment: JovanA JOSH MILAN 55F Dx: Pancytopenia, 5150 PMHx: HTN, Dementia, Spleen disorder, TBI, Chronic back pain PSHx: none noted Labs: No updated labs since 08/06 (08/06) alb: 3.3, BMP wnl, H/H: 10.2/31% (*07/31) WBC 3.9L, H/H 10/30L, POCBG 122H, ALKPHOS 41L, ALB 2.9L (07/26) H/H 9.6/30L, Cl 109H *no other updated labs Meds: Namenda, Depakote, Seroquel, Lactulose, Haldol, Miralax, Pro-amatine, Aricept Diet: Cardiac diet PO Intake: po intakes 10-65% in past week, avg avg 40%, not improved since last assessment Bed scale: (08/12) 63.1kg/138.82lbs, (08/10) 143#, (08/03) 135#, (07/25): 137.7# BMI: 24.9 Edema: none noted Last BM: 08/12 Skin: exocitation to the periarea noted Irvin: [address] (08/10): clinical case manager helping with placement options, pt continues to appear agitated and screams at staff, per RN pt tried to bite her and is constantly screaming. Says she continues to drink her ensure but is not eating well overall. RD Note (08/12/2020): Pt was seen sitting in bed with bilateral restraints during bedside visit. Pt was speaking to herself and didn't engage with RD. Pt's bed scale weight was 63.1kg/138.82lbs. Per nutrition flowsheet on 08/12, pt had 10% of her cardiac diet, and "2 bites of eggs, 2 sips of coffee" was noted under comment section. RD checked pt's lunch tray, and pt had less than 10% intake for lunch, and ensure high protein was opened but less than 10% was consumed. Estimated Nutritional Needs Based on ideal body weight (52kg) Energy: 9496-5596 kcal/day (25-30 kcal/kg for maintenance) Protein: 41-52 g/day (0.8-1 g/kg for maintenance) Fluid: 3864-7465 mL/day (1 mL/kcal) Nutrition Diagnosis: 1. Inadequate energy and protein intake r/t psych issue related poor PO intake a/e/b low average PO intake since admission. (modified, ongoing) Intervention 1. Recommend NA2G diet to liberalize diet 2. Recommend trial EN Nutrition Support via NGT of Jevity 1.2 with a goal of 20ml/hr. Provides: 480mls, 576 kcals, 26.64gm protein, and 387mls water meeting 44% of estimated kcal needs and 64.9% estimated protein needs. Pt is as risk of refeeding syndrome. Monitor electrolyte levels and replace when needed. RD will reassess and adjust tube feeding rate if pt is able to tolerate. 3. Recommend Consider FWF of 150mls Q4hrs. It will meet 900ml additional and 1287ml total free water. 4. Recommend consider PPN support if EN is not tolerated/ not appropriate. 5. Recommend MVI QD Paged Dr. Montes. Discussed pt's condition with Dr. Montes, and Dr. Montes stated that it might not be appropriate for pt to receive tube feeding or PPN right now. Recommended NA2G diet and MVI QD as alternatives, and Dr. Montes acknowledged. Monitor/Evaluate Goal: PO intake at least 75% of estimated needs (not met, ongoing), consider EN on f/u Monitor: PO intake, Labs, GI function, ONS intake, diet implementation F/U in 2-3 days as high risk 08/14-
[2020-08-12 17:25] VITALS: BP 143/94
--- NOTE | 2020-08-12 18:39 | NUR ---
PT WAS BATHE AND CLEANED. LINEN AND GOWN ALL CHANGED. RESTRAINT STILL NEEDED AT THIS TIME. PT REMAINS AGITATED, KICKS, YELLS, AND CRIES. SKIN CIRCULATION WNL.
[2020-08-12 19:50] VITALS: BP 161/91
--- NOTE | 2020-08-12 22:31 | NUR ---
PATIENT ALERT CONFUSED, RESTLESS, AGITATED. PATIENT CLEANED AND REPOSITIONED. PATIENT TOOK ALL MEDICATIONS WITH WATER. SOFT WRIST RESTRAINTS ON ORDERED. BED ALARM ON, BED AT ITS LOWEST POSITION.
--- NOTE | 2020-08-12 23:58 | NUR ---
08/09 notes, per psych MD, no longer meets LPS criteria
[2020-08-13 05:23] VITALS: BP 144/79
--- NOTE | 2020-08-13 07:30 | NUR ---
PT IS AAOX1 TO SELF, CONFUSED. VERBALLY RESPONSIVE, CAN FOLLOW SIMPLE COMMANDS AND COMMUNICATE SOME NEEDS. ALL CARE ANTICIPATED BY STAFF. MED SURG PT. LUNG SOUNDS CTA. ON R/A. IVF RUNNING TO RAC. NO S/S OF INFECTION OR INFILTRATION NOTED. CDI. BILATERAL SOFT WRIST RESTRAINTS IN PLACE. BOTH SITES SHOW NO S/S OF REDNESS, SWELLING OR EXCORITION. BED ALARM ON. BED IN LOWEST POSITION.
[2020-08-13 09:10] VITALS: BP 126/87
--- NOTE | 2020-08-13 10:00 | NUR ---
SCHEDULED MEDS GIVEN AND TOLERATED WELL. PT REPOSITIONED FOR COMFORT. BILATARAL SOFT WRIST RESTRAINTS IN PLACE. NO S/S OF REDNESS, SWELLING OR EXCORIATION. PT DENIES PAIN. NO DISCOMFORT NOTED.
[2020-08-13 11:50] VITALS: BP 144/84
--- NOTE | 2020-08-13 11:59 | NUR ---
SCHEDULED MED GIVEN CRUSHED WITH APPLE SAUCE. PT REPOSITIONED FOR COMFORT AND ASSISTED WITH EATING SNACK. NO S/S OF PAIN NOTED. WILL CONTINUE TO MONITOR.
--- NOTE | 2020-08-13 17:25 | NUR ---
PT GIVEN SCHEDULED MEDS CRUSHED WITH APPLE SAUCE. TOLERATED WELL. PT HAS SOFT BM. PT CHANGED AND REPOSITIONED. RESP EVEN AND UNLABORED. NO DISTRESS NOTED. CALL LIGHT WITHIN REACH.
[2020-08-13 18:21] VITALS: BP 148/90
--- NOTE | 2020-08-13 18:42 | NUR ---
RESP EVEN AND UNLABORED. PT NOTED WITH SACRAL COCCYX REDNESS. HYDRAGUARD AND OPTIFOAM PLACE. PT TURNED AND REPOSITIONED Q 2 HOURS AND PRN. IVF RUNNING TO RAC. SITE WNL. NO S/S OF INFECTION OR INFILTRATION. NO DISTRESS NOTED. WILL ENDORSE ALL CARE TO HYDRO PLANT OPERATOR RN.
--- NOTE | 2020-08-13 20:00 | NUR ---
RECIEVED PATIENT AWAKE IN BED. A/O X1 WITH CONFUSION NOTED. RESPIRATIONS EVEN AND UNLABORED. NO SOB OR ACUTE DISTRESS NOTED. MARIKA SOFT WRIST RESTRAINTS IN PLACE. IVF INFUSING WITH NO REDNESS OR IRRITATION TO SITE. WILL CONTINUE TO MONITOR FOR SAFETY. Tim WRIGHT RN.
[2020-08-13 21:19] VITALS: BP 113/72
[2020-08-14 05:27] VITALS: BP 118/89
--- NOTE | 2020-08-14 06:39 | NUR ---
PATIENT REMAINS IN STABLE CONDITION. NO ACUTE DISTRESS NOTED. Tim WRIGHT RN.
--- NOTE | 2020-08-14 08:00 | NUR ---
RECEIVED REPORT FROM OFF GOING STAFF ABOUT THE PATIENT. SHE IS ANXIOUS AND COMBATIVE AND SEH SCREEMS AND DOES NOT TAKE HER MEEICAITON OR DIET OFFERED. SHE HAS BEEN ON RESTRAINTS PER PROTOCAL AND HAS BEEN UNABLE TO BE REASONED WITH. WILL CONTINUED TO MONITOR AND CHECK FOR SAFETY INDICATED.
[2020-08-14 08:40] VITALS: BP 130/88
--- NOTE | 2020-08-14 10:09 | NUR ---
PATIENT HAS REFUED THE MEDICATIONS OFFERED SHE JUST SCREEN OBCENITIES TO STAFF JAIRO SHE IS VERY DELUSIONAL AND WITH RESTRAINTS IN PLACE SHE HAS THROWN HER LEGS OVER [facility] BED AND SHE REFUSES TO BE PLACED BACK AND JUST DOES THE STAME THING AGAIN. SHE HAS NO SIGNS OF ANY REALITY TO HER SURROUNDINGS AND TALK ABOUT ACCUSITORY ISSUES THAT STAFF IS TRYING TO HURT HER IN SOME WAY. SHE HAS DIMINSHED BUT CLEAR BREATH SOUNDS AND BOWEL SOUNDS ARE HYPOACTIVE. SEMariia AHS BEEN HERE AT [facility] FOR SOME TIME NOW ANS SHE RARELY DEVIATES FROM HER PRESENT CONDITION. WITHOUT HER TAKING HER MEDICADTIONS SHE PROBALLY WILL STAY IN THIS STATE. WILL ADVISE THE PRIMARY OF WHAT IS ALREADY AN ISSUE FROM THE TIME SHE ARRIVED TO THE FACILTY. PULSES PALPABLE AND SKIN IS WARM AND DRY. SHE HAS NO INDICATION OF DIST RESS OTHER THAN MENTALLY. INTERMITTANTLY TAKEN WELL SHE HAS NOT BEEN COOPERATIVE WITH CARE. WILL CONTINUE TO MONITOR INDICATED
--- NOTE | 2020-08-14 11:17 | NUR ---
SPIKE WITH THE SPOUSE AND HELD THE PHONE SO THE PATIEN COULD SPEAK WITH HIM WELL. SHE IS ANXIOUS BUT AT TIMES SHE IS VERY LUCID IWTH THE . HE WANT TO BRING IN A DTABLE SO THEY CAN SEEN EACH OTHER. PATIENT IS NOT HAPPY AND WANT TO SEEN HIM FACE TO FACE. PATIENT HAS BEEN ADVISED OF THE RATIONAL FOR COVID ISOLATION.
[2020-08-14 12:07] VITALS: BP 148/97
--- NOTE | 2020-08-14 15:46 | NUR ---
PATIENT REFUSED HER LUNCH AND HAD REFUSED HER MEDICATIONS EARLIER. SHE JUST SCREAMS LOUDLY AND STATES OBSENITIES TO STAFF TO LEAVE HER ALONE. CONTINUEDON BILATERAL WRIST RESTRAINTS AND CHECKED CIRCULATION AND WNL AT THIS TIME. SHE SCOOTS IN BED AND REMAINS CONFUSED AND DISORIENTED.
[2020-08-14 16:19] VITALS: BP 138/65
--- NOTE | 2020-08-14 17:17 | NUR ---
PATIENT STILL VERY AGIATED. SHE DOD NOT AGREE TO TAKE HER MEDICATIONS WHEN OFFERED AGAIN AND SHE WAS REQUESTED TO PLEASE EAT HER DINNER. THIS SHE SAID SHE WOULD. BUT DUE TO HER CONFUSION AND DISORIENTATION STAFF CANT COUNT ON THIS WHEN SHE STATES SHE IS OFTEN THE OPPOSITE WHEN THE TIME COMES. CONTINED ON RESTRAINTS ORDERED. SAFETY CHECKED INDICATED.
--- NOTE | 2020-08-14 19:20 | NUR ---
RECEIVED REPORT FROM AM NURSE. PATIENT IS ON SOFT RESTRAINT ON BOTH WRISTS. SHE TENDS TO REFUSE MEDS; BUT IF SHE WANTS HER MEDS; THEY NEED TO BE GIVEN WITH APPLE SAUCE. SHE SCREAMS A LOT. THERE IS SOME REDNESS ON HER BUTTOCK.
--- NOTE | 2020-08-14 20:45 | NUR ---
PATIENT SCREAMED REFUSING CARE AND MEDICATION. EDUCATED PATIENT ABOUT THE IMPORTANCE OF HER MEDS. STILL REFUSED. WILL TRY AGAIN WITHIN HOUR.
--- NOTE | 2020-08-14 21:30 | NUR ---
PATIENT MUMBLED A LOT AND SCREAMED. SHE STILL REFUSED HER MEDS. WILL TRY TO EDUCATE IN THE NEXT HOUR. ON SOFT RESTRAINT. SKIN INTACT.
[2020-08-14 21:54] VITALS: BP 145/94
--- NOTE | 2020-08-14 22:30 | NUR ---
WITH THE HELP OF GLOVE OPERATOR, PATIENT AGREED TO TAKE HER MEDICATION. CRUSHED HER MED AND MIX IT WITH APPLE SAUCE. PATIENT ATE THE WHOLE THING. WILL CONTINUE TO MONITOR.
--- NOTE | 2020-08-15 00:05 | NUR ---
PATIENT FINALLY RESTING. SHE IS STILL ON RESTRAIN. NO APPARENT DISTRESS. WILL CONTINUE TO MONITOR.
--- NOTE | 2020-08-15 00:20 | NUR ---
PATIENT ABLE TO GET OFF FROM HER RIGHT SOFT RESTRAINT. SHE WAS SITTING ON THE EDGE OF THE BED. SHE STATED SHE WANTED TO GO HOME. AFTER NUMEROUS PERSUASION BY NURSES, SHE WAS RETURNING BACK SUPINE ON THE BED AND HER RESTRAINT WAS REDONE. PLANNED TO GIVE HER ANTIPSYCH MED FOR ANXIETY. WILL CONTINUE TO MONITOR.
--- NOTE | 2020-08-15 03:00 | NUR ---
PATIENT RESTING COMFORTABLY. NO SIGN OF DISTRESS. WILL CONTINUE TO MONITOR.
[2020-08-15 05:22] VITALS: BP 114/78
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
[2020-08-15 08:44] VITALS: BP 125/78
--- NOTE | 2020-08-15 10:57 | NUR ---
PATIENT RECEIVE DRESTING BUT STILL VERY TENSE IN APPEARANCE. SHE WAS ASKED TO TAKE FLUID AND SHE BECAME FERY LOUD AND AGRESSIVE. SHE DID THOYUGH NEGIN HER MEDICAITON TODAY. SHE HAS THE MIRALAX WELL PATIENT HAS BEEN ON RESTRAINTS DUE TO HER AGRESSIVE AND BEHAVIOR AND PULLING OF LINES AND SAFETY ISSUES. PATIENT HAS BEEN OCNFUSED AND OFTEN IN APPROPRIATE WORDS ARE STATED BYU HER AND OFTEN OFFESIVE. NO EDEMA NOTED TO THE EXTREMITIES AND SOEM EXCORIATION OTE TOE H BUTTOCKS REGION BUT SHE HAS BEEN SCOOTING ON HER BOTTOM SO SHE HAS A OPTIFOAM IN PLACE. VITALS AT THIS TIME AT 97.2, 16, 125/78, 99%. NO LABS DRAWN ON THIS PATIETNAND SHE HAS BEEN AWAITING PSYCH PLACEMENT INDICATED.
[2020-08-15 12:17] VITALS: BP 145/90
--- NOTE | 2020-08-15 12:22 | NUR ---
WAS ABLE TO GET THE PATIEN TTO TAKE ALL BUT THE LACTULOSE. SHE DID HAVE STOOL THIS AM. PATIENT HAS SCRUSHED IN APPLESAUSE AND DRANK THE MIRALAX IN ORANGE JUICE. SHE IS STILL ON RESTRAINT PROTOCAL SHE IS STILL AGITATE DAND DELUSONAL AND CONFUSED. SHE HAS ATTEMPTED TO PUTLL IVS OUT AND TO GET UP WITHOUT ASSIST. SHE HAS MANY SAFETY ISSUES AND IS NOT ABLE TO ARTICULATE HER SAFETY OR THE PLAN OF CARE FOR HER DUE TO HER DELUSIONS AND CONFUSION.
--- NOTE | 2020-08-15 15:27 | NUR ---
GAVE PATIENT HER MEDICATION INDICATED. SHE TOLERATED THEM IN APPLESAUSE AND CRUSHED. SHE IS STILL AGITATED BUT TOOK THE MEDICATION AND BETWEEN BITES SHE SHE IS SCREAMING AT STAFF. [facility] REMAINS ON RESTRAINTS OREDERED. 0.0
--- NOTE | 2020-08-15 15:41 | NUR ---
Follow-up Nutrition Assessment: JOSH YU 55F Dx: Pancytopenia, 5150 PMHx: HTN, Dementia, Spleen disorder, TBI, Chronic back pain PSHx: none noted Labs: No updated labs since 08/06- (08/06) alb: 3.3, BMP wnl, H/H: 10.2/31% (*07/31) WBC 3.9L, H/H 10/30L, POCBG 122H, ALKPHOS 41L, ALB 2.9L (07/26) H/H 9.6/30L, Cl 109H *no other updated labs Meds: Namenda, Depakote, Seroquel, Lactulose syrup, Haldol, Miralax, Pro-amatine, Aricept, NaCl, Dulcolax, theragran, Namenda Diet: 2 gm sodium PO Intake: average: 32%, last 5 meals average: 60% (appetite seems to be improving) Bed scale: (08/12) 63.1kg/138.82lbs, (08/10) 143#, (08/03) 135#, (08/15): 65.5 kg/144 lbs 137.7# BMI: 24.9 Edema: none noted Last BM: 08/13 Skin: no skin issues noted Irvin: [address] (08/10): case management coordinator helping with placement options, pt continues to appear agitated and screams at staff, per RN pt tried to bite her and is constantly screaming. Says she continues to drink her ensure but is not eating well overall. RD Note (08/12/2020): Pt was seen sitting in bed with bilateral restraints during bedside visit. Pt was speaking to herself and didn't engage with RD. Pt's bed scale weight was 63.1kg/138.82lbs. Per nutrition flowsheet on 08/12, pt had 10% of her cardiac diet, and "2 bites of eggs, 2 sips of coffee" was noted under comment section. RD checked pt's lunch tray, and pt had less than 10% intake for lunch, and ensure high protein was opened but less than 10% was consumed. RD note (08/15); per RN, pt awaiting placement, pt's nurse reported that pt is eating OK, that pt likes juice. Pt's nurse reported she may like ensure clear, since she likes juice a lot. Pt's nurse reported that pt's blood pressure is low sometimes, most likely due to pysch meds. At time of visit, pt was resting and awake. Pt was calm. When pt was asked if she ate breakfast and lunch, she said yes, it was unclear whether pt understood questions being asked. Pt kept talking to herself as I was getting her weight on the bed scale. Estimated Nutritional Needs Based on ideal body weight (52kg) Energy: 7989-1478 kcal/day (25-30 kcal/kg for maintenance) Protein: 41-52 g/day (0.8-1 g/kg for maintenance) Fluid: 3516-8700 mL/day (1 mL/kcal) Nutrition Diagnosis: 1. Inadequate energy and protein intake r/t psych issue related poor PO intake a/e/b low average PO intake since admission. (modified, ongoing) Intervention 1. Recommend liberalizing diet to regular diet due to poor PO intake, blood pressure has not been elevated per pt's nurse 2. d/c 2-3 gm Na diet 3. add ensure clear TID to aid in PO intake. 4. Recommend MVI QD Per previous assessment: Paged Dr. Montes. Discussed pt's condition with Dr. Montes, and Dr. Montes stated that it might not be appropriate for pt to receive tube feeding or PPN right now. Recommended NA2G diet and MVI QD as alternatives, and Dr. Montes acknowledged. Spoke to pt's nurse about this recommendation, pt's nurse reported that she would not recommend nutrition support because the pt will most likely pull out the tubes. Pt's nurse reported ONS may be more appropriate at this time due to pt's behavior. Monitor/Evaluate Goal: PO intake at least 75% of estimated needs (not met, ongoing), consider EN on f/u Monitor: PO intake, Labs, GI function, ONS intake, diet implementation F/U in 2-3 days as high risk 08/17-
[2020-08-15 17:24] VITALS: BP 133/88
--- NOTE | 2020-08-15 18:29 | NUR ---
DUE TO THE LATENESS OF GIVING HER DOSING OF THE DEPOKOT AND THE SERAQUIL THE NEXT DOSING WILL BE AROUND 1930 FOR BOTH. PATIENT DID TAKE THIS MEDICATION IN APPLESAUSE BUT REFUSED THE EARLIER MORNING MEDICATION. THE MEDRINE WAS NOT NEEDED SA THE BP WSA WNL IN THE 120'S AND PATIENT HAS BEEN NOT TOO LOW FOR THE SHIFT. WILL CONTINUE TO MONITOR. PATIENT DOES APPEAR MUCH CALMER WITH THE PSYCH MEDICATIONS ON BOARD. SHE CAN BE RESISTIVE THOUGH. SPOKE WITH THE DIETARY AND SHE HAS NOT BEEN EATTING WELL. SHE IWLL BE RECEIVING SUPPLIMENTS IN THE FORM OF FORTIFIED JUICES. SHE HAS BEEN FAVORING JUICES.
--- NOTE | 2020-08-15 19:25 | NUR ---
RECEIVED REPORT FROM AM NURSE. NURSE ABLE TO ADMINISTER MEDS BY MIXING IN APPLE SAUCE AND ORANGE JUICE. LAST BM 08/15. STILL ON SOFT RESTRAINT ON BOTH WRISTS.
--- NOTE | 2020-08-15 19:40 | NUR ---
PATIENT WAS LYING SUPINE WITH HOB FLAT. WHEN INTRODUCING HIMSELF TO THE PATIENT, SHE SCREAMED "NO AND GO AWAY". SHE WAS NOT OPENING HER EYES. HER SKIN ON SOFT RESTRAINTS WAS QUICKLY ASSESSED AND INDICATED TO POOR CIRCULATION. HER IV SITE IS INFUSING WITH D5 1/2 NS AT 50 ML/HR. PATIENT WAS ASKED IF SHE NEEDED ANYTHING. SHE JUST STAYED QUIET.
--- NOTE | 2020-08-15 19:45 | NUR ---
RECEIVED REPORT FROM DAY SHIFT RN. PT RESTING IN BED. AA&O X4. NO SOB ON ROOM AIR. BREATHING EVEN AND UNLABORED. NO C/O CHEST PAIN. IV TO LFA, SALINE LOCKED. PT AWARE OF DISCHARGE ORDER. PT WAS TRYING TO SET UP TRANPORTATION BUT WAS UNABLE TO FIND SOMEONE AVAILABLE TO TAKE HER HOME. SAFEY MEASURES IN PLACE. BED IN LOWEST POSITION. SIDE RAILS UP X2. CALL LIGHT WITHIN REACH. COMMODE AT BEDSIDE.
[2020-08-15 21:01] VITALS: BP 127/77
--- NOTE | 2020-08-16 | NUR ---
PATIENT WAS NON COOPERATIVE WHEN BEING CLEAN. PATIENT HAD BOWEL MOVEMENT. AFTER ENGRAVINGS POLISHER CLEANED THE PATIENT, THE OPTIFOAM WAS REPLACED. DURING THE PROCESS, THE PATIENT TRIED TO BITE, PINCH, PULL HANDS. DURING THIS TIME HER EYES DO NOT EVEN OPENED. RESTRAINT WAS PUT BACK. WILL CONTINUE TO MONITOR.
--- NOTE | 2020-08-16 02:53 | NUR ---
PATIENT ON SUPINE RESTING COMFORTABLY WITH NO SIGN OF DISTRESS. WILL CONTINUE TO MONITOR.
[2020-08-16 05:34] VITALS: BP 109/67
--- NOTE | 2020-08-16 07:03 | NUR ---
PATIENT WAS CLEANED DUE TO HER SECOND BOWEL MOVEMENT THIS ADVANCED DEVELOPER. PATIENT'S EYES NOT OPENING AT ALL. AND WHEN ASK SHE STATED "SHE JUST DON'T WANT TO" HER URINE SMELL STRONG WHICH MAY INDICATE DEHYDRATION. MAY NEED TO ASK AM NURSE TO ORDER FOR LAB. ALL ADVANCED DEVELOPER MEDS EXCEPT FOR LACTULOSE WAS ADMINISTERED CRUSHED AND MIXED WITH FOOD. OPTIFOAM WAS PLACED ON HER SACRAL AREA. WILL ENDORSE THE CURRENT DVT PROPHYLAXIS TO THE INCOMING NURSE.
[2020-08-16 09:00] VITALS: BP 95/63
--- NOTE | 2020-08-16 12:14 | NUR ---
PATIENT IS CONFUSED AND DISORIEMTED BUT WAS ABLE TO TAKE MEDICIAON IN APPLESAUSE AND SHE DRANK THE MIRALAX IN JUICE. SHE HAS DIMINISHE DBREATH SOUND ADN ON RESTRAINTS IDNICATED AND SAFETY AND CIRCULATION CHECKED INDICATED. APTIENT AHS PULSE SPALABPE AND BOWEL SOUINDS ACTIV.E SHE IS A FEEDING WITH MINIMAL INTAKE AT THIS THE TIME. VITAL ARE STABLE AND PATIEN TAHS NOTED REDNESS DU TO SCOOTING ON THE BED AND INCONTINENCE OF URINE AND BOWEL. PATIENT IS AWAITING PLACEMENT AT A PSYCH FACILTY. NO INDICATION OF ACUTE DISTRESS AT THIS TIME.
[2020-08-16 13:00] VITALS: BP 99/70
--- NOTE | 2020-08-16 14:15 | NUR ---
PATIEN IS CALMER TODAY AND CONTINUED ON RESTRAINTS IWTH PROTOCAL.
--- NOTE | 2020-08-16 17:17 | NUR ---
MEDICATIONS GIVEN THROUGHOUT THE SHIFT SEEM TO BE EFFECTIVE IN CALMING THE PATIENT. FEW INCIDENCE OF SCREAMING AND ACTING OUT NOTED. WILL CONTINUE TO MONITOR.
--- NOTE | 2020-08-16 19:30 | NUR ---
RECEIVED REPORT FROM DAY SHIFT NURSE. PATIENT WAS STILL ON RESTRAINT. PATIENT WAS SCREAMING OR PLEASANTLY QUIET OUT DURING HER SHIFT. ALL MEDS MIXED APPLE SAUCE WERE ADMINISTERED WTIHOUT ANY PROBLEMS.
--- NOTE | 2020-08-16 19:40 | NUR ---
PATIENT WOKE UP SITTING UP ON THE BED WITH HER HAND RESTRAINT. SHE MUMBLED WITH HER EYE CLOSED. SHE REFUSED TO BE TOUCHED. PATIENT BREATHING EVENLY UNLABORED. ALERT ORIENTED X1 (PERSON). STATED SHE WAS HUNGRY. NURSE WILL GAVE SNACK (APPLE SAUCE). SHE STATED NO WHENEVER SHE NEEDS TO BE CARED FOR.
--- NOTE | 2020-08-16 20:55 | NUR ---
PATIENT SCREAMED TO MAKE ENGINEERING CLERK NOT TO DO QUICK V/S ON HER. NURSE CAME WITH MEDS MIXED IN APPLE SAUCE. EVEN SHE WAS STATED NO TO ANYTHING, WHEN OFFERED APPLE SAUCE NEAR HER MOUTH SHE QUICKLY OPENED HER MOUTH AND ATE IT. SHE TOOK HER MEDS THIS WAY.
[2020-08-16 21:53] VITALS: BP 131/103
--- NOTE | 2020-08-16 22:40 | NUR ---
PATIENT ON RESTRAINT. RESTRAINT WAS REASSESSED. OBSERVED PATIENT SCREAMING, YELLING. SHE STATED "WHY DID YOU DO THIS TO ME?" WHEN NO ONE IN THE ROOM. ORAL FLUID WAS OFFERED. PATIENT SCREAMED TO GO AWAY TO ANY NURSES IN HER ROOM.
--- NOTE | 2020-08-17 00:25 | NUR ---
PATIENT SITTING UP IN THE BED. MUMBLING SOMETHING.
--- NOTE | 2020-08-17 01:11 | NUR ---
PATIENT WAS OBSERVED MUMBLING STARING AT THE WALL. SHE WAS SITTING UP ON THE BED. WILL CONTINUE TO MONITOR.
--- NOTE | 2020-08-17 05:00 | NUR ---
PERICARE ON PATIENT WAS DONE TOGETHER WITH NATURAL SCIENCE CURATOR AND RN. PATIENT GAWN WAS REPLACED AND THE BED WAS REMADE. SNACK AND WATER WAS OFFERED. EVEN SHE SAID NO, PUTTING A SPOON IN FRONT OF HER MOUTH WILL MAKE HER EAT AND PUTTING A STRAW TAKE A DRINK OF WATER OR JUICE. BED AT THE LOWEST POSITION. WILL CONTINUE TO MONITOR.
[2020-08-17 06:47] VITALS: BP 143/116
[2020-08-17 07:30] VITALS: BP 136/75
--- NOTE | 2020-08-17 08:30 | NUR ---
SEEN RESTING WITH EYES CLOSED, EASILY TO AROUSE, AWAKE, ALERT, CONFUSED, PATIENT SCREAMING/YELLING WHILE ATTEMPTING TO CLEAN AND CHANGE. NO RESP DISTRESS, BREATHING E/U ON ROOM AIR, INCONTINENCE URINE. ERYTHEMA TO FABI AREA, Z GUARD APPLIED. MARIKA SOFT WRIST RESTRAINT INPLACED WITH (+) CMS. IVF D5 1/2NS AT 50ML/HR INFUSING WELL. REORIENTATION PROVIDED, NO INDICATION OF LEARNING. SIDERAILS UP X2. WILL CONTINUE TO MONITOR.
--- NOTE | 2020-08-17 09:00 | NUR ---
AM MEDS CRUSHED AND MIXED WITH JUICE, PATIENT ABLE TO FINISH IT. ENSURE GIVEN NOTED FISNIHED HALF OF ENSURE, REFUSHED THE REST OF BREAKFAST.
--- NOTE | 2020-08-17 12:10 | NUR ---
PATIENT'S SPOUSE CALLED, UPDATED VIA PHONE. PATIENT'S SPOUSE CALLED ON PATIENT'S CELL PHONE. PATIENT YELLED AT ME THEN CRYING ON THE PHONE.
--- NOTE | 2020-08-17 14:00 | NUR ---
CONNECTED SKYPE FACETIME PER PATIENT'S REQUESTED FROM PATIENT'S OWN IPAD. PATIENT VERU EMOTIONAL, CRYING, CONFUSED.
[2020-08-17 16:00] VITALS: BP 143/117
--- NOTE | 2020-08-17 18:14 | NUR ---
PATIENT EASILY GET AGITATED/MOOD CHANGED FAST FROM CRYING TO ANGER. REMAINS CONFUSED. POOR APPETITE, JIMMY. SCHEDULED MEDS GIVEN. IVF D5 1/2NS INFUSING WELL.
--- NOTE | 2020-08-17 19:54 | NUR ---
RECEIVED PT FROM DAY SHIFT NURSE. RR EVEN AND UNLABORED. NO ADN. RESTRAINTS IN PLACE, NO SKIN BREAKDOWN. BED LOCKED AND LOWERED. CALL LIGHT WITHIN REACH. WILL CONTINUE WITH PLAN OF CARE.
[2020-08-17 21:21] VITALS: BP 152/98
--- NOTE | 2020-08-18 01:15 | NUR ---
PT RESTING IN BED. RR EVEN AND UNLABORED. NO ADN. BED LOCKED AND LOWERED. CALL LIGHT WITHIN REACH. WILL CONTINUE TO MONITOR
[2020-08-18 06:00] VITALS: BP 152/86
--- NOTE | 2020-08-18 06:38 | NUR ---
PT RESING IN BED. RR EVEN AND UNLABORED. PT ON RA. NO ADN. RESTRAINTS IN PLACE.SKIN INTACT. BED LOCKED AND LOWERED. CALL LIGHT WITHIN REACH. WILL ENDORSE TO DAY SHIFT NURSE
[2020-08-18 08:23] VITALS: BP 136/82
--- NOTE | 2020-08-18 09:37 | NUR ---
PT AAOX 1. PT CALMED THIS MORNING. PT MUMBELING WORDS, CONFUSED. PT HAS CLEAR LUNG SOUNDS. BILAT RADIAL/PEDAL PULSES STRONG, NO EDEMA. GI/ PT INCONTINENT LAST BM 08/18/20. PT ON SOFT WRIST RESTRAINTS. PT HAS REDNESS @ BUTTUCKS AND GROIN. PT HAS S/L ON RIGHT AC 22G.
[2020-08-18 12:03] VITALS: BP 125/68
--- NOTE | 2020-08-18 16:47 | NUR ---
PT RESTING COMFORTABLY IN BED. NO SIGNS OF DISTRESS. PT AAO X1. PT ON BILAT WRIST RESTRAINS. CLEAR LUNG SOUNDS. PT INCONTINENT. PT HAS S/L ON RIGHT WRIST 22G FLUSHED AND PATENT. BILAT RADIAL/PEDAL PULSES STRONG AND EQUAL. NO EDEMA. PT HAS REDNESS ON BUTTUCKS AND GROING. APPLIED SKIN BARRIER.
[2020-08-18 17:22] VITALS: BP 142/83
--- NOTE | 2020-08-18 17:40 | NUR ---
RECEIVED A CALL FROM PATIENT'S SPOUSE REQUESTED TO TALK TO PATIENT VIA [place]. ASSISTED PATIENT ON FACETIME. PATIENT APPEARS VERY SAD CRYING WHILE TALKING TO HER DIAMANTE. NO ANY DISTRESS NOTED ON ROOM AIR.
--- NOTE | 2020-08-18 19:45 | NUR ---
RECEIVED PT FROM AM NURSE, AA/O X 1. PT CONFUSED WITH GARBLED SPEECH. MED SURG. PULSES PALPABLE, NO EDEMA. LUNG SOUNDS CTA, RESPIRATIONS E/U ON RA. NO RESPIRATORY DISTESS. ACTIVE BS X 4 QUADS, ABD SOFT AND NON DISTENDED. DENIES N/V/D. PT INCONTINENT OF BOWEL AND BLADDER. REDNESS NOTED TO BUTTOCKS AND GROIN, COVERED WITH BARRIER CREAM AND OPTIFOAM. DENIES PAIN. SOFT MARIKA WRIST RESTRAINTS IN PLACE, SKIN INTACT AND CIRCULATION WNL. JELLY IN LOWEST POSITION, CALL BUTTON WITHIN REACH, WILL CONTINUE TO MONITOR.
[2020-08-18 21:49] VITALS: BP 105/73
--- NOTE | 2020-08-19 00:31 | NUR ---
PT IN BED RESTING WITH EYES CLOSED, BUT EASILY AROUSABLE. RESPIRATIONS E/U ON RA, RISE AND FALL OF CHEST OBSERVED. SOFT BILATERAL WRIST RESTRAINTS IN PLACE, SKIN INTACT, CIRCULATION WNL. BED ALARM ON, FREQUENT VISUAL CHECKS DONE. NO SIGNS OF ACUTE DISTRESS AT THIS TIME. CALL LIGHT WITHIN REACH, WILL CONTINUE TO MONITOR.
--- NOTE | 2020-08-19 07:04 | NUR ---
PT SLEPT IN INTERVALS DURING THE SHIFT BUT EASILY AROUSABLE. PT REMAINS RESTLESS AND AGITATED AND YELLS AT STAFF WHEN AWAKE. BILATERAL SOFT WRIST RESTRAINTS REMOVED AND PT ATTEMPTED TO SWING AT STAFF AND REFUSED MORNING VITAL SIGNS. SOFT BILATERAL WRIST RESTRAINTS PUT BACK ON. SKIN INTACT, CIRCULATION WNL. PT INCONTINENT, KEPT CLEAN AND DRY. ALL NEEDS MET, IV FLUIDS INFUSING AT 50 CC/HR. NO ACUTE CHANGES OVERNIGHT. CALL LIGHT WITHIN REACH, CARE ENDORSED TO AM NURSE.
--- NOTE | 2020-08-19 07:20 | NUR ---
REC'VD PT FROM NIGHT RN. PT IN BED SITTING UP, LEGS ARE DANGLING. ASSISTED PATIENT BACK IN BED. PT CRYING AND SCREAMING. OTHERWISE, VSS. ALERT AND ORIENTED TO SELF. RES E/U. IV SITE TO RAC INFUSING WELL. BILAT SOFT WRIST RESTRAINTS IN PLACE. CMS PRESENT. DENIES PAIN/DISCOMFORT.
[2020-08-19 08:47] VITALS: BP 124/98
--- NOTE | 2020-08-19 13:33 | NUR ---
PT IS CRYING AND SCREAMING. PT APPEARS AGITATED, GIVEN HALDOL PO PER EMAR
--- NOTE | 2020-08-19 14:22 | NUR ---
Follow-up Nutrition Assessment: JOSH YU 55F Dx: Pancytopenia, 5150 PMHx: HTN, Dementia, Spleen disorder, TBI, Chronic back pain PSHx: none noted Labs: (08/10) Glu: 114, no other labs done since 08/06 (08/06) alb: 3.3, BMP wnl, H/H: 10.2/31% (*07/31) WBC 3.9L, H/H 10/30L, POCBG 122H, ALKPHOS 41L, ALB 2.9L (07/26) H/H 9.6/30L, Cl 109H *no other updated labs Meds: Namenda, Depakote, Seroquel, Lactulose syrup, Haldol, Miralax, Pro-amatine, Aricept, NaCl, Dulcolax, Theragran, Namenda, MVI with min Diet: 2 gm sodium PO Intake since last assessment: 10-60%, avg 35% (same from last assessment) Bed scale: (08/12) 63.1kg/138.82lbs, (08/10) 143#, (08/03) 135#, (08/15): 65.5 kg/144 lbs, 137.7# BMI: 24.9 Edema: none noted Last BM: 08/18, BM 1-2 per day Skin: no skin issues noted Irvin: 13 (no change) Current RD note (08/19): per case management notes they are trying to find SNF placement however d/t pt being on restraints it has been difficult to place patient, tube feeding is not being considered d/t pt's condition and risk of pulling out tube. spoke with RN Wanda who said that pt eats better when someone is there to encourage her and remind her to eat, she said she can try giving supplement with med pass to increase caloric intakes. RD note (08/15); per RN, pt awaiting placement, pt's nurse reported that pt is eating OK, that pt likes juice. Pt's nurse reported she may like Ensure clear, since she likes juice. Pt's nurse reported that pt's blood pressure is low sometimes, most likely due to pysch meds. At time of visit, pt was resting and awake. Pt was calm. When pt was asked if she ate breakfast and lunch, she said yes, it was unclear whether pt understood questions being asked. Pt kept talking to herself as I was getting her weight on the bed scale. Estimated Nutritional Needs Based on ideal body weight (52kg) Energy: 6759-6841 kcal/day (25-30 kcal/kg for maintenance) Protein: 41-52 g/day (0.8-1 g/kg for maintenance) Fluid: 7737-7724 mL/day (1 mL/kcal) Nutrition Diagnosis: 1. Inadequate energy and protein intake r/t psych issue related poor PO intake a/e/b low average PO intake since admission. (modified, ongoing) Intervention 1. Recommend changing to Regular diet and d/c 2gm Na diet. 3. Continue Ensure Clear BID. 4. Continue MVI QD. Spoke with MD Dr. Walker who agreed to recommendation, CHELSIE Muñoz present and carried out orders. Monitor/Evaluate Goal: PO intake at least 75% of estimated needs (not met, ongoing) Monitor: PO intake, Labs, GI function, ONS intake, diet implementation F/U in 2-3 days as high risk 08/20-.
[2020-08-19 17:41] VITALS: BP 94/37
--- NOTE | 2020-08-19 18:47 | NUR ---
PT RESTING IN BED. NO SIGNIFICANT CHANGES NOTED. IVF INFUSING WELL. WILL ENDORSE CARE TO NEXT SHIFT
[2020-08-19 21:19] VITALS: BP 108/74
--- NOTE | 2020-08-20 00:23 | NUR ---
PATIENT IN BED.AWAKE,ALERT,AND ORIENTED TO NAME ONLY,GARBLED SPEECH AND VERBALLY ABUSIVE TO STAFF.SKIN WARM AND DRY TO TOUCH. LUNGS SOUND CLEAR UPON AUSCULTATION.CURRENTLY ON D5 NS AT 50 ML/HR TO RAC G22 INFUSING WELL,NO S/S OF INFILTRATION. CURRENTLY ON BILATERAL WRIST RESTRAINT FOR SAFETY DUE TO EPISODES OF PULLING OUT MEDICAL EQUIPMENT,CHECKED FOR CIRCULATION ,NO REDNESS,NO SWELLING TO WRIST AREA.CALL LIGHT WITHIN REACH.
[2020-08-20 05:07] VITALS: BP 124/74
--- NOTE | 2020-08-20 07:00 | NUR ---
REC'VD PT FROM NIGHT RN. PT IN BED AWAKE AND ALERT. PT IS CRYING BUT OTHERWISE APPEARS STABLE. RES E/U, NO RESPIRATORY DISTRESS NOTED. IVF INFUSING WELL. BILATERAL SOFT WRIST RESTRAINT NOTED. CMS PRESENT. NO ACUTE DISTRES NOTED. DENIES PAIN/DISCOMFORT.
[2020-08-20 08:54] VITALS: BP 130/93
[2020-08-20 12:44] VITALS: BP 141/83
--- NOTE | 2020-08-20 19:40 | NUR ---
RECEIVED REPORT FROM AM RN PT CALM AND QUIET AT PRESENT NO S/S OF DISTRESS NOTED, BILAT WRIST REST IN USE A SAFETY DEVICE, PATIENT ATTEMPTING TO PULL OUT IV, WHICH WILL AFFECCT PLAN OF CARE
--- NOTE | 2020-08-20 19:51 | NUR ---
PT RESTING IN BED CRYING. NO SIGNIFICANT CHANGES NOTED. IV TO RAC INFUSING WELL. BILAT SOFT WRIST RESTRAINTS IN PLACE. CMS PRESENT. ENDORSED CARE TO NEXT SHIFT.
[2020-08-20 22:00] VITALS: BP 144/79
--- NOTE | 2020-08-20 23:00 | NUR ---
MED PASS, PT TOLERATED MEDS WELL DESPITE SCREAMING AND SHOUTING CONFABULATION OF WORDS.NO S/S OF DISTRESS NOTED.
--- NOTE | 2020-08-21 02:00 | NUR ---
ON ROUNDS PATIENT SOMEWHAT RESTLESS W/ SLEEP INTERVALS.
--- NOTE | 2020-08-21 04:00 | NUR ---
ON ROUNDS PATIENT W/ ABRUPT SCREAMING, SOMEWHAT RESTLESS W/ SLEEP INTERVALS. NO RESP DISTRESS NOTED.
[2020-08-21 05:55] VITALS: BP 126/74
--- NOTE | 2020-08-21 07:35 | NUR ---
REPORT TO AM RN. PT CALM AND QUIET W/ DECREASED STIMULUS, AT PRESENR EYS OPEN PT CALM W/ NO S/S OF RESP DISTRESS.
[2020-08-21 08:59] VITALS: BP 132/86
[2020-08-21 12:17] VITALS: BP 141/76
[2020-08-21 16:34] VITALS: BP 120/80
[2020-08-21 20:50] VITALS: BP 124/60
--- NOTE | 2020-08-21 21:00 | NUR ---
PATIENT LAYING ON HER BACK
--- NOTE | 2020-08-21 23:10 | NUR ---
TRAY TURNED TO HER LEFT SIDE
--- NOTE | 2020-08-22 02:04 | NUR ---
PATIENT VOIDE, INCONTINENT, CLEANED, GOWWN CHANGED , SUPINE, WARM BLANKET PROVIDED
--- NOTE | 2020-08-22 05:29 | NUR ---
PT WAS GIVEN A SANDWITCH AND APPLE JUICE
[2020-08-22 05:48] VITALS: BP 132/92
[2020-08-22 09:21] VITALS: BP 130/80
[2020-08-22 16:42] VITALS: BP 151/87
[2020-08-22 21:36] VITALS: BP 131/67; BP 131/897
[2020-08-23 05:58] VITALS: BP 158/98
--- NOTE | 2020-08-23 07:30 | NUR ---
RECIEVED REPORT FROM CONCRETE SWIMMING POOL INSTALLER NURSE. PT IS A/OX1 TO HERSELF. GARBLED SPEECH, CAN BE VERBALLY ABUSIVE AND IMPULSIVE. IV TO LFA, D5 1/2NS IS INFUSING AT 50ML/HR. PT IS ON BILATERAL SOFT RESTRAIN. ALL PROTOCOLS IN PLACE. WILL CONTINUE TO MONITOR AND ASSESS SKIN AND CIRCULATION PER PROTOCOL.
[2020-08-23 08:47] VITALS: BP 102/54
[2020-08-23 12:24] VITALS: BP 156/90
[2020-08-23 16:10] VITALS: BP 156/73
--- NOTE | 2020-08-23 17:49 | NUR ---
PT IS A/OX1 TO HERSELF. PT HAS GARBLED SPEECH. GETS VERBALLY ABUSIVE AT TIMES AND IMPULSIVE. IV TO LFA, D51/2NS IS INFUSING AT 50ML/HR. PT IS ON SOFT WRIST RESTRAINS BILATERALLY. ALL PROTOCOLS IN PLACE. SKIN AND CIRCULATION WNL. WILL ENDORSE CARE TO ONCOMING NURSE.
[2020-08-23 20:45] VITALS: BP 131/77
[2020-08-24 05:35] VITALS: BP 137/79
--- NOTE | 2020-08-24 08:53 | NUR ---
RECIEVED PT IN A STABLE CONDITION. SHE IS A 55Y FEMALE ADMITTED ON 07/07 WITH A CC OF DANGER TO SELF (WAS PREVIOUSLY ON A 5150) AND HER ADMITTING DX WAS PANCYTOPENIA. SHE IS ON A REGULAR DIET WITH NKDA, SHE IS AAOX1 WITH CONFUSION/ GARBLED SPEECH/ VERBALLY ABUSIVE/ AND IMPULSIVE. PULSES ARE PALPABLE THROUGHOUT WITH NO EDEMA NOTED. SHE IS ON ROOM AIR WITH GOOD SATURATION AND LUNGS ARE CTA BILATERALLY. ABDOMEN IS SOFT AND NORMOACTIVE X4, SHE HAS BILATERALY SOFT WRIST RESTRAINTS IN PLACE FOR HER SAFETY AND I AM ASSESSING THEM PER PROTOCOL. SHE IS ON D5 0.45 NS AT 50ML/HR GOING INTO HER LEFT FOREARM IV. BED IS LOW WITH CALL LIGHT IN REACH. WILL CONTINUE TO MONITOR.
[2020-08-24 08:58] VITALS: BP 154/90
[2020-08-24 11:53] VITALS: BP 140/81
[2020-08-24 17:07] VITALS: BP 138/75
--- NOTE | 2020-08-24 18:24 | NUR ---
PT REMAINED STABLE THROUGHOUT THE REMAINDER OF THE SHIFT WITH ALL INTERVENTIONS CARRIED OUT PER PROTOCOL AND NO SIGNIFICANT CHANGES NOTED. SHE IS STILL ON BILAT SOFT WRIST RESTRAINTS FOR HER OWN SAFETY. SS REQUESTED A REFERRAL TO CHARTER TCM PROGRAM. BED IS LOW WITH CALL LIGHT IN REACH. WILL CONTINUE TO MONITOR.
[2020-08-24 21:47] VITALS: BP 127/65
[2020-08-25 06:00] VITALS: BP 113/62
[2020-08-25 08:38] VITALS: BP 105/68
[2020-08-25 11:54] VITALS: BP 127/72
[2020-08-25 16:10] VITALS: BP 133/81
--- NOTE | 2020-08-25 18:28 | NUR ---
PATIENT REMAINED STABLE THROUGHOUT THE REMAINDER OF THE SHIFT WITH ALL INTERVENTIONS CARRIED OUT PER PROTOCOL. NO SIGNIFICANT CHANGES IN PATIENT STATUS NOTED. BILATERAL SOFT WRIST RESTRAINTS IN PLACE AND ASSESSED ACCORDING TO PROTOCOL. BED IS IN THE LOW POSITION WITH THE CALL LIGHT IN REACH. WILL CONTINUE TO MONITOR.
[2020-08-25 20:31] VITALS: BP 127/93
[2020-08-26 05:08] VITALS: BP 130/86
--- NOTE | 2020-08-26 08:33 | NUR ---
PT AAOX1. PT AGITATED AND SOBBING. PT MUMBELING. PT HAS BILAT RADIAL/PEDAL PULSES (+). PT ON SCD'S. PT'S LUNG SOUNDS ARE CLEAR AND ON ROOM AIR 98%. (+) BOWEL SOUNDS AND LAST BM 08/25/20 PT IS INCONTINENT AND VOIDS. PT HAS GEN WEAKNESS. PT ON BILAT WRIST RESTRAINS. SKIN IS INTACT. PT HAS S/L ON LEFT FOREARM FLUSHED AND PATENT. PT ON D5 1/2 NS AT 50ML/HR. PT CALL LIGHT WITHIN REACH, BED LOCKED AND AT LOWEST POSITION.
--- NOTE | 2020-08-26 12:17 | NUR ---
PT AAOX 1. PT CONFUSED. PT IS RESTING COMFORTABLY IN BED. PT HAS CALL LIGHT WITHIN REACH, BED LOCKED AND TO THE LOWEST POSITION
--- NOTE | 2020-08-26 14:08 | NUR ---
1. Continue Regular diet. 2. Decrease Ensure Clear to 1 bottle qd at dinner. 3. Continue MVI QD.
--- NOTE | 2020-08-26 14:08 | NUR ---
Follow-up Nutrition Assessment: JovanA JOSH MILAN 55F Dx: Pancytopenia, 5150 PMHx: HTN, Dementia, Spleen disorder, TBI, Chronic back pain PSHx: none noted Labs: (08/13) 103, (08/10) Glu: 114, no other labs done since 08/06 (08/06) alb: 3.3, BMP wnl, H/H: 10.2/31% (*07/31) WBC 3.9L, H/H 10/30L, POCBG 122H, ALKPHOS 41L, ALB 2.9L (07/26) H/H 9.6/30L, Cl 109H *no other updated labs Meds: Namenda, Depakote, Seroquel, Lactulose syrup, Haldol, Miralax, Pro-amatine, Aricept, NaCl, Dulcolax, Theragran, Namenda, MVI with min Diet: 2 gm sodium PO Intake since last assessment: improved since being on regular diet, 70-90% in past 2 days, 0-45% before, unsure if pt is drinking supplement Bed scale: (08/26) 63.9kg, (08/12) 63.1kg/138.82lbs, (08/10) 143#, (08/03) 135#, (08/15): 65.5 kg/144 lbs, 137.7# BMI: 24.9 Edema: none noted Last BM: 08/23, BM 0-1 per day Skin: no skin issues noted Irvin: [address] (08/19): per case management notes they are trying to find SNF placement however d/t pt being on restraints it has been difficult to place patient; tube feeding is not being considered d/t pt's condition and risk of pulling out tube. spoke with RN Wanda who said that pt eats better when someone is there to encourage her and remind her to eat, she said she can try giving supplement with med pass to increase caloric intakes. Current RD note (08/26): visited pt at bedside, pt was sleeping, breakfast tray was at bedside and pt drank all her milk and OJ, had not touched her Ensure, per case management they have discussed with family if pt can be discharged home, however is unable to take care of patient. In the mean time they will try to wean pt off restraints and admit to SNF Estimated Nutritional Needs Based on ideal body weight (52kg) Energy: 1471-3560 kcal/day (25-30 kcal/kg for maintenance) Protein: 41-52 g/day (0.8-1 g/kg for maintenance) Fluid: 1560-3641 mL/day (1 mL/kcal) Nutrition Diagnosis: 1. Inadequate energy and protein intake r/t psych issue related poor PO intake a/e/b low average PO intake since admission. (modified, ongoing) Intervention 1. Continue Regular diet. 3. Decrease Ensure Clear to 1 bottle qd at dinner. 4. Continue MVI QD. Monitor/Evaluate Goal: PO intake at least 75% of estimated needs (improving, ongoing) Monitor: PO intake, Labs, GI function, ONS intake, diet implementation F/U in 3-5 days as moderate risk 1/2-1/4
--- NOTE | 2020-08-26 14:39 | NUR ---
DR DEL ROSARIO NOTIFED THAT PATIENT'S IV HAS INFILTRATED, AND THAT NOT COOPERATING WITH NEW IV. PER DR DEL ROSARIO, IT IS OK TO LEAVE IV OUT.
[2020-08-26 16:55] VITALS: BP 120/88
--- NOTE | 2020-08-26 18:43 | NUR ---
PT AAOX 1. PT CONFUSED AND MUMBLELING, SOBBING AND OCCATIONAL AGITATED. PT HAS SCD'S BILAT RADIAL/PEDAL PULSES (+). BILAT CLEAR LUNG SOUNDS PT AT ROOM AIR O2SAT 99%. PT HAS GEN WEAKNESS. PT INCONTINENT/ VOIDS. ACTIVE BOWEL SOUNDS IN ALL QUADRNTS. PT HAS BILAT SOFT WRIST RESTRAINS. S/L DISCONTINUE. PT VITAL SIGNS STABLE
[2020-08-26 21:03] VITALS: BP 139/108
[2020-08-27 04:27] VITALS: BP 118/81
--- NOTE | 2020-08-27 07:30 | NUR ---
PT AAOX 1. PT CONFUSED, IMPULSIVE, SOBBING. (+) BILAT RADIAL/PEDAL PULSES NO EDEMA. PT HAS NO IV LINE OK PER DR. DEL ROSARIO. PT IS INCONTINENT, LAST BM 08/27/20. PT HAS GEN WEAKNESS, SHES AT FALL RISK. PT ON BILAT SOFT WRIST RESTRAINS. PT VITALS ARE STABLE BP 120/80 HR 78, RR 18 TEMP 98.1. CALL LIGHT WITHIN REACH, BED LOCKED AND IN LOWERST POSITION.
[2020-08-27 07:46] VITALS: BP 139/87
[2020-08-27 12:20] VITALS: BP 106/71
[2020-08-27 18:38] VITALS: BP 125/85
[2020-08-27 20:10] VITALS: BP 128/72
[2020-08-28 05:35] VITALS: BP 104/74
--- NOTE | 2020-08-28 08:00 | NUR ---
SEEN IN BED AWAKE, CONFUSED, EASILY GET AGITATED AND SCREAMING OFTEN. NO RESP DISTRESS NOTED BREATHING E/U ON ROOM AIR. INCONTINENCE URINE. MARIKA SOFT WRIST RESTRAINT INPLACE WITH NO SKIN BREAKDOWN NOTED TO WRISTS. SIDERAILS UP X2.
[2020-08-28 08:37] VITALS: BP 144/103
[2020-08-28 16:37] VITALS: BP 128/89
--- NOTE | 2020-08-28 18:57 | NUR ---
NO ANY DISTRESS THROUGHOUT SHIFT. VSS. BREATHING E/U ON ROOM AIR. GET AGITATED/SCREAMING/YELLING EASILY, SCHEDULED MEDS CRUSHED AND MIXED WITH APPLE JUICE GIVEN. JIMMY, ENCOURAGED TO EAT, PATIENT HAD FAIR APPETITE. MARIKA SOFT WRIST RESTRAINT INPLACE WITH (+) CMS.
[2020-08-28 20:46] VITALS: BP 109/63
--- NOTE | 2020-08-29 00:13 | NUR ---
PT CRYING , HALDOL GIVEN, ATTEMPTED TO GIVE HER WATER , SHE REFUSED, ATTEMPTED TO PUT HER SOCKS ON SHE STARTED YELLING , ATTEMPTED TO TURN HER SHE CONTINES TO YELL AND ASKED NOT TO BE TOUCHED. WILL CONTINUE TO MONITOR
--- NOTE | 2020-08-29 01:25 | NUR ---
PT crying , talking about having to go to walk and taking care of the kids. Reoriented to environment . Provided water and a sandwitch as she replied that she was hungry .
[2020-08-29 04:38] VITALS: BP 126/91
--- NOTE | 2020-08-29 07:35 | NUR ---
RECEIVED PATIENT FROM PM NURSE, ALERT AND ORIENTED TO SELF, CRYING OUT DURING ASSESMENT, NO S/SX OF PAIN OR DISCOMFORT, LUNG SOUNDS CLEAR, ON RA, GENERALIZED WEAKNESS, BILATERAL SOFT WRIST RESTRAINTS IN PLACE, CMS CHECK COMPLETE, NO IV ACCESS AT THIS TIME, BOWEL SOUNDS ACTIVE, SKIN INTACT, PEDAL PULSES EQUAL AND MODERATE BILATERALLY, INCONTINENT OF BLADDER, PATIENT CONFUSED
[2020-08-29 08:23] VITALS: BP 133/91
[2020-08-29 11:32] VITALS: BP 109/86
[2020-08-29 17:06] VITALS: BP 137/91
--- NOTE | 2020-08-29 18:54 | NUR ---
PATIENT RESTING COMFORTABLY, NO S/SX OF DISTRESSS AT THIS TIME, WILL ENDORSE CARE TO PM NURSE
[2020-08-29 20:52] VITALS: BP 100/62
[2020-08-30 05:33] VITALS: BP 147/93
--- NOTE | 2020-08-30 07:08 | NUR ---
PATIENT HAD FAIR AND UNEVENTFUL SHIFT. BILATERAL SOFT WRIST RESTRAINTS INTACT TO PREVENT PULLING OF LINES AND TUBES. NO SIGNS OF SKIN OR CIRCULATION IMPAIRMENT NOTED. IV RESTARTED TO RIGHT HAND. FABI CARE AND BED BATH PROVIDED. ALL NEEDS MET, NO DISTRESS NOTED.
--- NOTE | 2020-08-30 07:15 | NUR ---
RECEIVED PATIENT FROM PM NURSE, ALERT AND ORIENTED TO SELF, CRYING OUT DURING ASSESMENT, NO S/SX OF PAIN OR DISCOMFORT, LUNG SOUNDS CLEAR, ON RA, GENERALIZED WEAKNESS, BILATERAL SOFT WRIST RESTRAINTS IN PLACE, CMS CHECK COMPLETE, IV IN LFA PATENT, BOWEL SOUNDS ACTIVE, SKIN INTACT, PEDAL PULSES EQUAL AND MODERATE BILATERALLY, INCONTINENT OF BLADDER, PATIENT CONFUSED
[2020-08-30 07:33] VITALS: BP 148/82
--- NOTE | 2020-08-30 12:00 | NUR ---
RESTRAINTS LOOSENED ON PATIENT, CMS CHECK COMPLETE
[2020-08-30 16:10] VITALS: BP 163/94
--- NOTE | 2020-08-30 18:39 | NUR ---
PATIENT RESTING COMFORTABLY IN BED, NO S/SX OF PAIN OR DISCOMFORT AT THIS TIME, WILL ENDORSE CARE TO PM NURSE
--- NOTE | 2020-08-30 19:37 | NUR ---
PT RECIEVED FROM DAY SHIFT. PT A&O X1. STRONG PULSES OF BUE AND BLE, NO EDEMA NOTED. PT HAS CLEAR SOUNDS ON ROOM AIR, OXYGEN SATURATION 95%. BOWEL SOUNDS CTIVE X4. PT IS INCONTINENT. PT HAS GENERALIZD WEAKNES AND BED BOUND. SOFT WRIST RESTRAINS BILATERALLY CONTINUED. SKIN INTACT. IV ON LFA PATENT AND INTACT. NO C/O OR SIGNS OF PAIN, DISTRESS, OR DISCOMFORT. BED ON LOWEST LEVEL, CALL LIGHT WITHIN REACH, BED RAILS UP X2. WILL CONTINUE TO MONITOR.
[2020-08-30 21:30] VITALS: BP 118/72
--- NOTE | 2020-08-31 00:45 | NUR ---
PER MD RODRIGUES PT DOES NOT NEED TO RECIEVE MIDODRINE TONIGHT DUE TO BP 118/75.
--- NOTE | 2020-08-31 02:00 | NUR ---
PT RESTING IN BED NO C/O OR SIGNS OF PAIN, DISTRESS, OR DISCOMFORT. BED ON LOWEST LEVEL, CALL LIGHT WITHIN REACH, BED RAILS UP X2, WRIST RESTRAINTS CONTINUED. WILL CONTINUE TO MONITOR.
[2020-08-31 05:10] VITALS: BP 99/50
--- NOTE | 2020-08-31 06:32 | NUR ---
PT RESTING IN BED WITH EYES CLOSED. WRIST RESTRAINTS CONTINUED. NO C/O OR SIGNS OF PAIN, DISTRESS, OR DISCOMFORT. PT AGITATED, AGRESSIVE, AND RESTLESS WHEN AWAKEN. BED ON LOWEST LEVEL, CALL LIGHT WITHIN REACH, BED RAILS X2. WILL ENDORSE TO ONCOMING SHIFT.
--- NOTE | 2020-08-31 08:20 | NUR ---
RECEIVED PT FROM PM NURSE. PT IS AWAKE AND RESTING COMFORTABLY AT THIS TIME. NO FACIAL DISTRESS OR SOB NOTED. PT IS A/OX1. ORIENTED TO SELF ONLY. HAD TO REORIENT PT TO TIME AND PLACE. LUNG SOUNDS CLEAR. BREATHING E/U ON RA. MED SURG PT. DENIES CHEST PAIN. PULSES PALPABLE. NO EDEMA NOTED. ACTIVE BSX4. ABD SOFT AND NON DISTENDED. DENIES N/V/D. INCONTINENT TO BOTH BOWEL AND BLADDER. SKIN INTACT. NO C/O PAIN AT THIS TIME. IV TO R WRIST. SL. FLUSHES WITH NO DIFFICULTY. BED AT LOWEST POSITION. SEIZURE PRECAUTION IN PLACE. MARIKA SOFT WRIST RESTRAINTS IN PLACE. CALL BUTTON WITHIN REACH. WILL CONTINUE TO MONITOR.
[2020-08-31 08:35] VITALS: BP 124/91
[2020-08-31 12:12] VITALS: BP 139/100
[2020-08-31 17:06] VITALS: BP 141/108
--- NOTE | 2020-08-31 18:58 | NUR ---
NO ACUTE DISTRESS NOTED DURING SHIFT. WILL ENDORSE CARE TO PM SHIFT FOR CONTINUITY OF CARE.
[2020-08-31 21:00] VITALS: BP 157/85
--- NOTE | 2020-08-31 22:02 | NUR ---
PT RECEIVED SITTING UP IN BED WITH BILATERAL SOFT WRIST RESTRAINTS APPLIED. ROM AND RELEASE PROVIDED, NO INJURIES NOTED, RESTRAINTS REAPPLIED. A/OX1 TO SELF ONLY. PT APPEARS TO BE HAVING VISUAL AND AUDITORY HALLUCINATIONS. PT IS EMOTINALLY LABILE AND CAN BECOME EASILY AGITATED OR BREAK OUT IN CRYING. RESPIRATIONS EVEN UNLABORED, CTA, RA. BS ACTIVE, ABD SOFT AND ROUND, NON TENDER, NO N/V NOTED OR REPORTED. INCONTINENT TO BLADDER, NO PERICARE REQUIRED AT THIS TIME. PT BEDREST AT THIS TIME BUT IS ABLE TO REPOSITION SELF. SKIN INTACT. NON VERBAL PAIN INDICATORS ABSENT. SL RFA PATENT, NO COMPLICATIONS TO SITE. BED IN LOWEST POSITION, SIDE RAILS X 2, PADDED RAILINGS, CALL LIGHT WIHTIN REACH.
--- NOTE | 2020-09-01 00:03 | NUR ---
PT SLEEPING IN SUPINE POSITION WITH HOB ELEVATED 30. RESPIRATIONS EVEN UNLABORED ON RA. NON-VERBAL PAIN INDICATORS ABSENT. RESTRAINTS APPLIED PROPERLY, NO INJURIES NOTED. NO PERICARE REQUIRED AT THIS TIME. ALL NEEDS MET. BED IN LOWEST POSITION, SIDE RAILS X2, CALL LIGHT WIHTIN REACH
--- NOTE | 2020-09-01 06:02 | NUR ---
PT AWAKE AND AGITATED. NO PERICARE NEEDED AT THIS TIME. SNACKS PROVIDED. PT REMAINS IN BIALTERAL SOFT WRIST RESTRAINTS CONTINUES TO ATTEMOT TO GET OOB AND PULL LINES. ROM AND RELEASE PROVIDED, NO INJURIES NOTED. NO C/O PAIN OR FALLS OR INJURIES SUSTAINED DURING SHIFT. ALL NEEDS MET. BED IN LOWEST POSITION, SIDE RIALS X2, CALLL LGIHT WIHTIN REACH.
[2020-09-01 06:32] VITALS: BP 139/91
--- NOTE | 2020-09-01 07:33 | NUR ---
RECEIVED PT FROM PM NURSE. PT IS AWAKE AND RESTING COMFORTABLY AT THIS TIME. NO FACIAL DISTRESS OR SOB NOTED. PT IS A/OX1. ORIENTED TO SELF ONLY. HAD TO REORIENT PT TO TIME AND PLACE. LUNG SOUNDS CTA. BREATHING E/U ON RA. MED SURG PT. DENIES CHEST PAIN. PALPABLE PUSLES. NO EDEMA NOTED. ACTIVE BSX4. ABD SOFT AND NON DISTENDED. DENIES N/V/D. INCONTINENT TO BLADDER AND BOWEL. SKIN INTACT. NO C/O PAIN AT THIS TIME. IV 22G TO RH. SL. SITE WNL. BED AT LOWEST POSITION. CALL BUTTON WITHIN REACH. MARIKA SOFT WRIST RESTRAINTS IN PLACE D/T PT'S ATTEMPTS AT PULLING OUT IV AND EQUIPMENT. WILL CONTINUE TO MONITOR.
[2020-09-01 12:30] VITALS: BP 140/92
--- NOTE | 2020-09-01 14:44 | NUR ---
Follow-up Nutrition Assessment: JovanA JOSH MILAN 55F Dx: Pancytopenia, 5150 PMHx: HTN, Dementia, Spleen disorder, TBI, Chronic back pain PSHx: none noted Labs: (08/13) 103, (08/10) Glu: 114, no other labs done since 08/06 (08/06) alb: 3.3, BMP wnl, H/H: 10.2/31% (*07/31) WBC 3.9L, H/H 10/30L, POCBG 122H, ALKPHOS 41L, ALB 2.9L (07/26) H/H 9.6/30L, Cl 109H *no other updated labs Meds: Namenda, Depakote, Seroquel, Lactulose syrup, Haldol, Miralax, Pro-amatine, Aricept, NaCl, Dulcolax, Theragran, Namenda, MVI with min Diet: Regular diet, po intakes remain around 76-100%, on Ensure Clear at dinner Bed scale: (09/01) same (08/26) 63.9kg, (08/12) 63.1kg/138.82lbs, (08/10) 143#, (08/03) 135#, (08/15): 65.5 kg/144 lbs, 137.7# BMI: 24.9 Edema: none noted Last BM: 08/30, BM 1 qd Skin: no skin issues noted Irvin: [address] (08/26): visited pt at bedside, pt was sleeping, breakfast tray was at bedside and pt drank all her milk and OJ, had not touched her Ensure, per case management they have discussed with family if pt can be discharged home, however is unable to take care of patient. In the mean time they will try to wean pt off restraints and admit to SNF Current RD note (09/01) no new changes, pt continues on restraints, eating well and weight is stable Estimated Nutritional Needs Based on ideal body weight (52kg) Energy: 1155-4061 kcal/day (25-30 kcal/kg for maintenance) Protein: 41-52 g/day (0.8-1 g/kg for maintenance) Fluid: 9115-4525 mL/day (1 mL/kcal) Nutrition Diagnosis: 1. Inadequate energy and protein intake r/t psych issue related poor PO intake a/e/b low average PO intake since admission. (modified, ongoing) Intervention 1. Continue Regular diet. 3. Decrease Ensure Clear to 1 bottle qd at dinner. 4. Continue MVI QD. Monitor/Evaluate Goal: PO intake at least 75% of estimated needs (improving, ongoing) Monitor: PO intake, Labs, GI function, ONS intake, diet implementation F/U in 7 days as low risk 09/08
[2020-09-01 16:40] VITALS: BP 124/84
[2020-09-01 20:28] VITALS: BP 108/72
--- NOTE | 2020-09-01 23:30 | NUR ---
LATE ENTRY 1929 PT RECEIVED LYING BED SLEEPING WITH HOB ELEVATED 45 DEGREES. PT EASILY AROUSABLE TO VERBAL STIMULI. PT A/OX1 TO SELF ONLY. PT SLEEPY AND IUNITERESTED IN PARTICIPATING IN ASSESSMENT. NON VERBAL PAIN INDICATORS ABSENT. RESPIRATIONS UNLABORED ON RA. NO PERICARE REQUIRED AT THIS TIME. RESTRAINTS PROPERLY APPLIED TO BILATERAL WRISTS, ROM AND RELEASE PROIVDED AND REAPPLIED. SL RFA 22G, PATENT, NO COMPLICATIONS TO SITE. BED IN LOWEST POSITOIN, SIDE RAILS X 2 WITH PADDING, CALL LIGHT WITHIN REACH.
[2020-09-02 04:44] VITALS: BP 90/54
--- NOTE | 2020-09-02 06:05 | NUR ---
PT AWAKE AND CRYING WHEN ATTEMPTING TO CHANGE SOILED CHUCKS. EMOTIONAL SUPPORT PROVIDED. PERICARE PROVIDED. ROM AND RELEASE OF BILATERAL SOFT WRIST RESTRAINTS PROVIDED. NO INJURIES NOTED. REAPPLIED PROPERLY. CHOCOLATE PUDDING PROVIDED. WHILE FEEDING PT, PT NOTED TO RESPOND TO INTERNAL STIMULI. NO ACUTE CHANGES OVER NIGHT. ALL NEEDS MET. BED INLOWEST POSITION, SIDE RAILS X 2, CALL LIGHT WITHIN REACH
--- NOTE | 2020-09-02 07:15 | NUR ---
PT REPORT RECEIVED FROM HARVEST SUPERVISOR RN. PT IS CURRENTLY AWAKE, A/Ox1. PT RESPONDS TO NAME BUT RESPONSES ARE GARBLED SPEECH. PT IS CLEAN. RIGHT HAND IV FLUSHES WELL. ON BUE SOFT WRIST RESTRAINTS BECAUSE OF AMS AND PT RISK FOR REMOVAL OF IV LINES. WAITING FOR DR CALL TO RENEW ORDER. SAFETY PRECAUTIONS IN PLACE. CALL LIGHT WITHIN REACH. WILL CONTINUE TO MONITOR.
--- NOTE | 2020-09-02 07:21 | NUR ---
SPOKE TO DR. MIGEL MCKINNON ORDER, PT BP 90/54
--- NOTE | 2020-09-02 08:57 | NUR ---
PAGED DR. LAINEZ
[2020-09-02 09:19] VITALS: BP 116/70
--- NOTE | 2020-09-02 11:25 | NUR ---
SPOKE TO DR. LAINEZ: -RECEIVED TELEPHONE READBACK ORDER: MIDODRINE PO 5mg, TID -DR WILL SIGN RESTRAINT FORM DUE TO PT REMOVAL OF IV LINE AND AMS
[2020-09-02 12:25] VITALS: BP 117/79
--- NOTE | 2020-09-02 13:00 | NUR ---
HELPED PT WITH EATING LUNCH. ATE 25% OF FOOD.
--- NOTE | 2020-09-02 14:30 | NUR ---
CLEANED PT WITH SHEY HOLGUIN. PT WAS OFF RESTRAINTS AND HIT MY FACE LIGHTY. NO INJURIES. PT WAS PLACED BACK ON RESTRAINTS AFTER CLEANING.
--- NOTE | 2020-09-02 17:00 | NUR ---
PT IS CURRENTLY SCREAMING INTERMITTENTLY. CHECKED FOR NEED TO BE CLEANED, FED PATIENT, AND CHECKED RESTRAINTS FOR PROPER LENGTH. PT CONTINUES TO SCREAM. BP IS ELEVATED. WILL ADMINISTER HALDOL FOR AGITATION.
[2020-09-02 17:07] VITALS: BP 158/87
--- NOTE | 2020-09-02 19:00 | NUR ---
PT IS CURRENTLY AWAKE, SCREAMING INTERMITTENTLY. NO SIGNS OF PAIN. NO SIGNS OF SOB. R HAND IV FLUSHES WELL CDI. MARIKA SOFT WRIST RESTRAINTS IN PLACE. SKIN WNL. INTERMITTENT BREAKS FROM RESTRAINTS GIVEN THROUGHOUT THE DAY. SAFETY PRECAUTIONS IN PLACE. CALL LIGHT WITHIN REACH. WILL ENDORSE CARE TO COVERSTITCH MACHINE OPERATOR RN.
--- NOTE | 2020-09-02 19:31 | NUR ---
PATIENT LYING ON SUPING POSITION SEMI LAKHANI. A/O X1 (NAME ONLY). HAVING HALLUCATING YELLING UPON ASSESSMENT. EASILY AGITATED. ON SOFT WRIST RESTRAINT. REFUSED TO BE TOUCHED. IV LINE @ RH 22 G INTACT. NO RESPIRATORY DISTRESS. BED AT THE LOWEST POSTION. WILL CONTINUE TO MONITOR.
[2020-09-02 20:29] VITALS: BP 115/77
--- NOTE | 2020-09-02 21:05 | NUR ---
PATIENT LYING ON HER LEFT SIDE. RESTING WITH EYES CLOSED. ON BILAT SOFT WRIST RESTRAINT. BED IN THE LOW POSITION. WILL CONTINUE TO MONITOR.
[2020-09-03 05:22] VITALS: BP 127/84
--- NOTE | 2020-09-03 07:09 | NUR ---
DURING THE NIGHT, PATIENT WAS RESTING WITH HER EYES CLOSE. NO APPARENT DISTRESS. THE RESTRAINT REASSESSED EVERY HOUR. MEDS WERE ADMINISTERED CRUSHED AND MIXED WITH APPLE SAUCE. WILL ENDORSE CARE TO UPCOMING DAY SHIFT NURSE.
--- NOTE | 2020-09-03 07:30 | NUR ---
PT REPORT RECEVEID FROM ELECTRICAL ASSEMBLY TECHNICIAN RN. PT IS CURRENTLY AWAKE, SCREAMING INTERMITTENTLY. NO SIGNS OF PAIN AND TROUBLE BREATHING. PT IS CONFUSED, A/Ox1, WITH GARBLED SPEECH. SEEMS TO HAVE AUDITORY/VISUAL HALLUCINATIONS. MARIKA SOFT WRIST RESTRAINTS IN PLACE. CIRCULATION NORMAL, SKIN IS INTACT. SAFETY PRECAUTIONS IN PLACE. CALL LIGHT WITHIN REACH EVEN THOUGH PT DOES NOT SEEM TO UNDERSTAND WHEN PT WAS TAUGHT HOW TO USE IT. WILL MONITOR FREQUENTLY.
[2020-09-03 07:54] VITALS: BP 103/70
--- NOTE | 2020-09-03 11:00 | NUR ---
RESTRAINTS RENEWAL SIGNED BY .
--- NOTE | 2020-09-03 13:00 | NUR ---
PT REMAINS AWAKE SO FAR. CONTINUES TO SCREAM INTERMITTENTLY. MARIKA SOFT WRIST RESTRAINTS IN PLACE. SKIN IS INTACT, NO CHANGES IN CIRCULATION. PT EATS 25% OF FOOD WITH HELP OF PHYSICIAN COMPENSATION ANALYST. MEDICATIONS GIVEN CRUSHED WITH PUDDING. SAFETY PRECATIONS IN [place]. WILL CONTINUE TO MONITOR.
[2020-09-03 13:29] VITALS: BP 127/91
--- NOTE | 2020-09-03 17:15 | NUR ---
SPOKE TO ABOUT PT CONTINUED AGITATION AFTER GIVING PRN HALDOL -TELEPHONE ORDER RECEIVED FOR XANAX 1mg PO Q.12H PRN FOR AGITATION
--- NOTE | 2020-09-03 17:20 | NUR ---
VERIFIED SAFETY OF ADMINISTERING XANAX WITH SEROQUEL WITH PHARMACY.
[2020-09-03 17:48] VITALS: BP 132/92
--- NOTE | 2020-09-03 19:00 | NUR ---
PT IS CURRENTLY SLEEPING THSI TIME. NO SIGNS OF PAIN AND SOB. MARIKA SOFT WRIST RESTRAINTS ON, SKIN IS INTACT. R FOREARM IV FLUSHES WELL, CDI. SAFETY PRECAUTIONS IN [place]. CALL LIGHT WITHIN REACH. WILL ENDORSE CARE TO LUMBER SORTER RN.
[2020-09-03 19:35] VITALS: BP 108/72
--- NOTE | 2020-09-03 19:40 | NUR ---
PATIENT WAS LYING SUPINE LOW [place] RESTING WITH EYES CLOSED. NO ACUTE DISTRESS NOTED. ON SOFT WRIST RESTRAINTS BILAT. PLAN TO REASSESS RESTRAINT Q1H BED IN THE LOW POSITION. WILL CONTINUE TO MONITOR.
--- NOTE | 2020-09-04 00:06 | NUR ---
PATIENT AWAKE AND BECAME AGITATED. SHE WAS HALLUCINATING WITH HER EYES CLOSED. MEDICATE HER WITH HALDOL PER EMAR. CRUSHED AND MIXED WITH APPLE SAUCE. SOFT RESTRAINTS ON BOTH WAISTS ASSESSED. WILL CONTINUE TO MONITOR.
[2020-09-04 03:50] VITALS: BP 128/87
--- NOTE | 2020-09-04 07:03 | NUR ---
PATIENT HAD BEEN RESTLESS STARING AT 2300. GIVEN HALDOL WITH NO AFFECT. THE RESTRAINT REASSESSED EVERY HOUR. BED IN THE LOW POSITION. WILL ENDORSE TO THE INCOMING NURSE.
--- NOTE | 2020-09-04 07:30 | NUR ---
RECEIVED PATIENT IN BED WITH BILAT SOFT WRIST RESTRAINTS ON. RELEASE AND ROM GIVEN. PATIENT IS AWAKE VERY CONFUSED, SPEAKS AND GIBBERISH, AND YELLS OUT FREQUENTLY. INCONT OF B&B, INCONT CARE GIVEN PRN. RESP EVEN AND UNLABORED, LUNGS CLEAR ON ROOM AIR. NO ACUTE DISTRESS NOTED. PATIENT REQUIRES MAX ASSIST WITH ALL ADL'S.
[2020-09-04 08:25] VITALS: BP 137/85
[2020-09-04 11:51] VITALS: BP 130/75
[2020-09-04 16:14] VITALS: BP 122/60
--- NOTE | 2020-09-04 16:27 | NUR ---
PATIENT REMAINS IN BED, CALM AND APPEARS TO BE RESTING WELL AT THIS TIME. HALDOL PO GIVEN X 1 FOR AGITATION WITH GOOD EFFECT. NO CHANGE IN CONDITION NOTED. BILAT SOFT WRIST RESTRAINTS IN PLACE, AND RELEASED AND ROM OF MOTION GIVEN. WILL CONTINUE TO MONITOR.
--- NOTE | 2020-09-04 17:01 | NUR ---
I HAVE REVIEWED THE DATA COLLECTION BY CAD CAM PROGRAMMER (NAME): ENTERED ON (DATE/TIME): I CONCUR WITH THE DATA AND ANY EXCEPTIONS OR COMMENTS ARE LISTED BELOW: PATIENT'S PLAN OF CARE WAS DISCUSSED AND REVIEWED WITH CAD CAM PROGRAMMER:TABATHA AGUILAR
--- NOTE | 2020-09-04 18:11 | NUR ---
PATIENT REMAINS IN BED, APPEARS TO BE MORE CALM THIS AFTERNOON AND EVENING AFTER HALDOL PO WAS GIVEN. BILAT SOFT WRIST RESTRAINS IN PLACE. BED IS IN LOW POSITION AND LOCKED, CALL LIGHT PLACED WITHIN REACH.
--- NOTE | 2020-09-04 20:00 | NUR ---
2000 PATIENT IN BED. A/O TO SELF ONLY. REFUSES TO ANSWER ORIENTATION QUESTIONS. AROUSABLE. NO S/S OF DISTRESS, ON ROOM AIR, NO DISTRESS. MARIKA RESTRAINTS ASSESSED. NO SIGNS OF INJURY. INCONTINENT. NO S/S OF PAIN. FREQUENT ROUNDING. BED IN LOWEST POSITION, BED ALARM IN PLACE. WILL CONTINUE TO MONITOR.
[2020-09-04 20:28] VITALS: BP 129/80
[2020-09-05 05:17] VITALS: BP 128/85
[2020-09-05 08:51] VITALS: BP 133/80
[2020-09-05 13:20] VITALS: BP 125/73
--- NOTE | 2020-09-05 16:57 | NUR ---
JAIMIE NOTES 0800: PATIENT YELLING AND SCREAMING NON STOP. ATIVAN ADMINSTERED. PATIENT STILL AGITATED. 1000: HALDOL GIVEN OREDERED. PATIENT ASLEEP AT HTIS TIME. EASY TO AOUSE. IVF ONGOING TO RIGHT HAND AT 50ML/HR. THIS NURSE SPOKE WITH PATIENT'S SON DIAMANTE AND GAVE UPDATE ABOUT PATIENT
--- NOTE | 2020-09-05 17:08 | NUR ---
PATIENT HAD X1 BM. KEPT CLEAN ADN DRY. RESTING QUIETLY IN BED. NO AGITATION NOTED AT THIS TIME. REMAINS ON BUE SOFT WRIST RESTRAINTS. SKIN CHECK WITH POSITIVE CIRCULATIONA AND SKIN INTACT. PATIENT OFFERED FLUIDS, AND REPOSITIONED FOR COMFORT.
--- NOTE | 2020-09-05 18:40 | NUR ---
PATIENT TOLERATED ALL MEDICATIONS AND CARE WELL. NO EMESIS. NO AGITATION. BED IN LOWEST POSITION. CALL LIGHT WITHIN EASY REACH.
--- NOTE | 2020-09-05 20:23 | NUR ---
PT'S IN BED CALM AT THE MOMENT , SOFT WRIST RESTRAINT IN PLACE FOR SAFTY , SKIN INTACT . CALL LIGHT WITHIN PT'S REACH , WILL CON'T TO MONITOR AND ASSIST PT WITH CARE . PIV INTACT INFUSING WELL .
[2020-09-05 21:36] VITALS: BP 116/71
[2020-09-06 06:21] VITALS: BP 126/69
--- NOTE | 2020-09-06 06:54 | NUR ---
NO CHANGES OF CONDITION NOTED, ALL SCHEDULED MEDS GIVEN NO REACTION NOTED, TELE SR , HL PATENT , FERNANDEZ TO TANVIR DRAINING WELL .
--- NOTE | 2020-09-06 06:57 | NUR ---
NO CHANGES OF CONDITION NOTED, PT;S IN BED CALM AWAKE , PIV INTACT INFUSING WELL , KEPT PT CELAN AND DRY AT AL THE TIME .
--- NOTE | 2020-09-06 07:30 | NUR ---
RECEIVED PATIENT IN BED AWAKE ALERT BUT CONFUSED, YELLING OUTHL RT HAND. RESP EVEN AND UNLABORED, LUNGS CLEAR. INCONTINENT. BILAT SOFT WRIST RESTRAINTS IN PLACED AND RELEASES FOR ROM AND REAPPLIED. WILL CONTINUE TO MONITOR.
[2020-09-06 08:13] VITALS: BP 135/76
[2020-09-06 12:12] VITALS: BP 127/74
[2020-09-06 16:35] VITALS: BP 120/70
--- NOTE | 2020-09-06 17:26 | NUR ---
PATIENT'S PLAN OF CARE WAS DISCUSSED AND REVIEWED WITH BRADDER:TABATHA AGUILAR. I HAVE REVIEWED THE DATA COLLECTION BY BRADDER (NAME):TABATHA AGUILAR. ENTERED ON (DATE/TIME):09/06/20 I CONCUR WITH THE DATA AND ANY EXCEPTIONS OR COMMENTS ARE LISTED BELOW:
--- NOTE | 2020-09-06 17:48 | NUR ---
PATIENT REMAINS IN BED, APPEARS TO BE RESTING WELL AFTER HALDOL WAS GIVEN PO. BILAT WRIST RESTRAINTS IN PLACE PATIENT PULLED OUT IV. WILL ATTEMPT TO RESTART.
--- NOTE | 2020-09-06 18:05 | NUR ---
NEW IV STARTED ON RT F/A 20G BY JHONNY HOLGUIN. PATIENT REMAINS CALM AND APPEARS TO BE RESTING WELL. BILAT SOFT WRIST RESTRAINTS IN PLACE AND RELEASED AND ROM GIVEN. REPOSITIONED Q 2 HRS. NO ACUTE DISTRESS NOTED.
[2020-09-06 22:01] VITALS: BP 113/73
--- NOTE | 2020-09-06 23:52 | NUR ---
IN BED AWAKE AND CALM , NO ACUTE DISTRESS NOTED .
--- NOTE | 2020-09-07 05:02 | NUR ---
IN BED AWAKE AND CALM, SOFT RESTRAINT IN PLACE SKIN INTACT , WILL CON'T TO MONITOR AND ASSIST PT WITH CARE .
[2020-09-07 06:07] VITALS: BP 115/77
--- NOTE | 2020-09-07 07:02 | NUR ---
SCHEDULED MEDS GIVEN NO REACTION NOTED,, PT IN BED AWAKE NO ACUTE DISTRESS NOTED, SOFT RESTRAING ON FOR SAFTY .
[2020-09-07 08:32] VITALS: BP 132/88
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
[2020-09-07 16:13] VITALS: BP 136/92
--- NOTE | 2020-09-07 19:35 | NUR ---
RECEIVED REPORT FROM AM NURSE. PT IS A&OX1, TO SELF. PT IS CONFUSED. PT IS NOT IN ACUTE DISTRESS AT THE MOMENT. SOFT WRIST RESTRAINTS ARE IN PLACE. PULSES ARE EQUAL AND +2 STRENGTH IN ALL FOUR EXTREMITIES. SKIN IS INTACT. PT BREATHS ARE EVEN AND UNLABORED. PT CURRENTLY HAS AN IV IN HER RIGHT FOREARM. IV IS CLEAN, DRY, AND INTACT. NO SIGNS OF INFILTRATION OR INFECTION IS NOTED. CALL LIGHT WITHIN REACH. BED AT THE LOWEST POSITION. WILL CONTINUE TO MONITOR.
[2020-09-07 21:06] VITALS: BP 122/79
--- NOTE | 2020-09-08 03:49 | NUR ---
PT IS AWAKE AND RESTING. RESTRAINTS ARE IN PLACE. SKIN IS INTACT, PULSES ARE PRESENT. PT IS NOT IN ACUTE DISTRESS AT THE MOMENT. WILL CONTINUE TO MONITOR.
--- NOTE | 2020-09-08 05:40 | NUR ---
PT IS RESTING IN BED AND CALM. SOFT RESTRAINTS ARE IN PLACE. SKIN IS INTACT. PT IS NOT IN ACUTE DISTRESS AT THIS TIME. WILL ENDORSE CARE TO AM NURSE.
[2020-09-08 06:37] VITALS: BP 133/74
[2020-09-08 08:52] VITALS: BP 96/56
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
--- NOTE | 2020-09-08 15:17 | NUR ---
Follow-up Nutrition Assessment: JovanA JOSH MILAN 55F Dx: Pancytopenia, 5150 PMHx: HTN, Dementia, Spleen disorder, TBI, Chronic back pain PSHx: none noted Labs: No new labs since last assessment (08/13) 103, (08/10) Glu: 114, no other labs done since 08/06 (08/06) alb: 3.3, BMP wnl, H/H: 10.2/31% (*07/31) WBC 3.9L, H/H 10/30L, POCBG 122H, ALKPHOS 41L, ALB 2.9L (07/26) H/H 9.6/30L, Cl 109H *no other updated labs Meds: Namenda, Depakote, Seroquel, Lactulose syrup, Haldol, Miralax, Pro-amatine, Aricept, NaCl, Dulcolax, Theragran, Namenda, MVI with min Diet: Regular diet, po intakes remain around 76-100%, on Ensure Clear at dinner Bed scale: (09/01) same (08/26) 63.9kg, (08/12) 63.1kg/138.82lbs, (08/10) 143#, (08/03) 135#, (08/15): 65.5 kg/144 lbs, 137.7# BMI: 24.9 Edema: none noted Last BM: 08/30, BM 1 qd Skin: no skin issues noted Irvin: [address] (09/01) no new changes, pt continues on restraints, eating well and weight is stable Current RD note (09/08): no changes since last assessment, weight stable Estimated Nutritional Needs Based on ideal body weight (52kg) Energy: 1187-3419 kcal/day (25-30 kcal/kg for maintenance) Protein: 41-52 g/day (0.8-1 g/kg for maintenance) Fluid: 0360-1768 mL/day (1 mL/kcal) Nutrition Diagnosis: 1. Inadequate energy and protein intake r/t psych issue related poor PO intake a/e/b low average PO intake since admission. (modified, ongoing) Intervention 1. Continue Regular diet. 3. Continue Ensure Clear to 1 bottle qd at dinner. 4. Continue MVI QD. Monitor/Evaluate Goal: PO intake at least 75% of estimated needs (improving, ongoing) Monitor: PO intake, Labs, GI function, ONS intake, diet implementation F/U in 7 days as low risk 09/15
[2020-09-08 21:45] VITALS: BP 155/88
[2020-09-09 06:32] VITALS: BP 113/74
--- NOTE | 2020-09-09 06:37 | NUR ---
rECEIVED PT DROWSY TO LETHARGIC, AROUSABLE, AAOX1, NO S/S PAIN/DISCOMFORT AT THIS TIME. Vivek SOFT WRIST RESTRAINTS IN PLACE, RELEASED FOR CIRCULATION CHECK AND NURSING CARE. aSSESSMENT DONE. KEPT CLEAN AND DRY. REPOSITIONED TO SIDES. REORIENTATION PROVIDED. CALL LIGHT WITHIN REACH. NO UNUSUALTUITIES NOTED DURING SHIFT. gEN CONDITION STABLE. STILL AWAITING BED AVAILAILITY FOR TRANSFER.
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
[2020-09-09 08:47] VITALS: BP 129/80
[2020-09-09 12:32] VITALS: BP 125/104
[2020-09-09 17:04] VITALS: BP 136/82
[2020-09-09 21:07] VITALS: BP 118/76
[2020-09-10 05:05] VITALS: BP 110/67
[2020-09-10 07:29] VITALS: BP 123/83
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
[2020-09-10 13:50] VITALS: BP 128/83
[2020-09-10 16:14] VITALS: BP 116/89
[2020-09-10 21:03] VITALS: BP 108/73
--- NOTE | 2020-09-11 03:49 | NUR ---
umeventful night pt rested well throughtout the night. no complaints voiced, will con't tomonitor
[2020-09-11 06:05] VITALS: BP 107/57
--- NOTE | 2020-09-11 07:10 | NUR ---
RECEIVED REPORT FROM PM NURSE. PT IS A&OX1, TO SELF. PT IS CONFUSED. PT DENIES ANY PAIN, NO ACUTE DISTRESS NOTED AT THE MOMENT. SOFT WRIST RESTRAINTS BILATERALLY ARE IN PLACE. PULSES ARE EQUAL AND +2 STRENGTH IN ALL FOUR EXTREMITIES. SKIN IS INTACT. PT BREATHS ARE EVEN AND UNLABORED. PT CURRENTLY HAS AN IV IN HER RIGHT FOREARM 20G. IV CDI. NO SIGNS OF INFILTRATION OR INFECTION IS NOTED. CALL LIGHT WITHIN REACH. BED AT THE LOWEST POSITION. WILL CONTINUE TO MONITOR.
[2020-09-11 08:49] VITALS: BP 132/79
[2020-09-11 11:56] VITALS: BP 116/80
[2020-09-11 16:58] VITALS: BP 147/85
--- NOTE | 2020-09-11 18:22 | NUR ---
PT IS RESTING IN BED AND CALM. SOFT RESTRAINTS ARE IN PLACE. SKIN IS INTACT PT IS NOT IN ACUTE DISTRESS AT THIS TIME. SKIN INTEGRITY CHECKED EVERY 2 HOURS, SKIN INTACT MEDICAL NON-VIOLENT RESTRAINT FLOW SHEET WILL BE ENDORSED TO INCOMING PM NURSE.
--- NOTE | 2020-09-11 19:58 | NUR ---
RECEIVED PATIENT IN BED AWAKE, ORIENTED X1 ONLY WITH NO SIGN OF ACUTE RESPIRATORY DISTRESS. BREATHING EASYA ND NONLABOR SATTING AT 100% RA. ON BILATERAL SOFT WRIST RESTRAINS WITH GOOD CIRCULATON NOTED TO BUE.IV TO RFA [place] CDI. WILL CONTINUE TO MONITOR. PATIENT SEEMS CALM THIS TIME.
[2020-09-11 20:58] VITALS: BP 109/71
--- NOTE | 2020-09-12 03:42 | NUR ---
APPEAR TO BE SLEEPING THIS TIME, BREATHING EEASY AND NONLABOR . WILL CONTINUE TO MONITOR.
--- NOTE | 2020-09-12 05:03 | NUR ---
SLEPT FAIRLY, CHECKED AT INTERVALS FOR NEEDS AND SAFETY. NO SIGNIFICANT CHANGES IN CONDITION NOTED THE ENTIRE SHIFT.
[2020-09-12 05:16] VITALS: BP 119/84
--- NOTE | 2020-09-12 07:17 | NUR ---
RECEIVED PATIENT IN BED AWAKE, AAO X1 SELF, WITH NO SIGN OF ACUTE RESPIRATORY DISTRESS. BREATHING AT EASE NO SIGN OF ACUTE PAIN, SATTING AT 100% RA. ON BILATERAL SOFT WRIST RESTRAINS WITH GOOD CIRCULATON NOTED TO BUE.IV TO RFA SAILINE LOCK CLEAN DRY AND INTACT. WILL CONTINUE TO MONITOR. PATIENT SEEMS CALM AT THIS TIME.
[2020-09-12 08:35] VITALS: BP 129/102
[2020-09-12 12:21] VITALS: BP 140/103
[2020-09-12 16:39] VITALS: BP 112/77
--- NOTE | 2020-09-12 17:59 | NUR ---
PT REMAINS IN BED AT A SEMIFOWLER POSITION APPEARS TO BE RESTING. CHECKED AT INTERVALS FOR NEEDS AND SAFETY. BED AT LOWEST POSTION, CALL LIGHT WITH IN REACH. NO SIGNIFICANT CHANGES THROUGOUT SHIFT. WILL ENDORSE CARE TO INCOMING NURSE.
[2020-09-12 20:48] VITALS: BP 108/69
--- NOTE | 2020-09-12 23:00 | NUR ---
SHAPOO CAP PLACED ON Patient to shapoo air . She would not allow nurse to comb her hair
--- NOTE | 2020-09-12 23:36 | NUR ---
Patient voide, incontinent, cleaed , linens changed, combative and using fowl language. Bottom red , protective cream applied
[2020-09-13 05:25] VITALS: BP 137/92
--- NOTE | 2020-09-13 06:53 | NUR ---
Gave patient water and apple jussusy
--- NOTE | 2020-09-13 07:23 | NUR ---
RECEIVED PATIENT IN BED AWAKE, AAO X1 SELF, WITH NO SIGN OF ACUTE RESPIRATORY DISTRESS. BREATHING AT EASE NO SIGN OF ACUTE PAIN, SATTING AT 100% RA. ON BILATERAL UPPER EXTREMITIES SOFT WRIST RESTRAINS WITH GOOD CIRCULATON NOTED.IV TO RFA SAILINE LOCK CLEAN DRY AND INTACT. WILL CONTINUE TO MONITOR. PATIENT SEEMS CALM AT THIS TIME.
[2020-09-13 08:36] VITALS: BP 113/74
[2020-09-13 12:15] VITALS: BP 127/75
[2020-09-13 16:11] VITALS: BP 123/69
--- NOTE | 2020-09-13 19:00 | NUR ---
RN RECEIVED REPORT, PT IN BED IN SEMI FOWLERS POSITION, NAD OBSERVED, RESP EVEN AND UNLABORED. PT SLEEPING BUT ABLE TO AROUSE TO VERBAL STIMULI, RESTAINTS ON WITH NO VISIBLE S/S OF COMPLICATIONS. IV TO RFA CLEAN DRY AND INTACT WITH NO COMPLICATIONS OBSERVED. BED IN LOW POSITION CALL RUSSELL IN REACH.
[2020-09-13 20:17] VITALS: BP 122/71
--- NOTE | 2020-09-13 23:00 | NUR ---
PT TOLERATED PO SCHEDULED MEDS WELL.
--- NOTE | 2020-09-14 07:11 | NUR ---
PT ALERT AND RESPONSIVE WITH NAD OBSERVED, RESP EVEN AND UNLABORED. PT IV CLEAN DRY AND INTACT NO COMPLICATIONS OBSERVED, PT WITH NO COMPLICATIONS FROM SOFT RESTRAINTS THROUGHOUT SHIFT.
--- NOTE | 2020-09-14 08:42 | NUR ---
RECEIVED AWAKE, ALERT AND ORIENTED. CONFUSED AT TIMES AND YELLING. NO ACUTE RESP. DISTRESS NOTED. NO C/O PAIN AT THIS TIME. BILS SOFT WRIST RESTRAINTS IN PLACE FOR SAFETY. CALL LIGHT WITHIN REACH. WILL CONTINUE WITH PLAN OF CARE.
[2020-09-14 09:28] VITALS: BP 131/76
[2020-09-14 12:16] VITALS: BP 145/91
[2020-09-14 17:11] VITALS: BP 129/91
--- NOTE | 2020-09-14 18:28 | NUR ---
RESTING IN NO DISTRESS, NO CHANGES IN VS. NO C/O PAIN OR DISCOMFORT. PT HALLUCINATES ON AND OFF. TRYING TO GET OOB AND PULLING OUT LINES. MARIKA. SOFT WRIST RESTRAINTS REMAINS IN PLACE. SIDE RAILS UP X3 AND CALL LIGHT WITHIN REACH. WILL BE ENDORSED TO INCOMING SHIFT.
--- NOTE | 2020-09-14 19:10 | NUR ---
PT. REPORT RECIEVED FROM DAY SHIFT NURSE, PT. RESTING IN BED, EASILY AROUSABLE, RR EVEN AND UNALBORED ON RA, CHEST RISE SYMT, M/S PT, RFA IV INTACT AND WNL, BED IN LOWEST POSITON, CALL LIGHT WITHIN REACH, SR UPX2, BILATERAL SOFT RESTRAINT IN PLACE TO PREVENT PT. FROM SELF HARM, BUE CIRCULATION WNL, WILL CONT TO MONITOR.
[2020-09-14 21:31] VITALS: BP 113/70
--- NOTE | 2020-09-15 02:23 | NUR ---
PT. RESTING IN BED, NO ACUTE CHANGE/ DISTRESS NOTED, RR EVEN AND UNLABORED ON RA, CHEST RISE SYMT, BILATERAL WRIST RESTRAINTS IN PLACE TO PREVENT PT. SELF HARM, BUE CIRCULATION WNL, WILL CONT TO MONITOR.
[2020-09-15 05:53] VITALS: BP 140/71
--- NOTE | 2020-09-15 06:54 | NUR ---
PT. RESTING IN BED, NO ACUTE CHANGE/ DISTRESS NOTED, ALL SAFETY MEASURES IN PLACE, WILL ENDORSE TO DAY SHIFT NURSE.
--- NOTE | 2020-09-15 07:35 | NUR ---
RECEIVED AWAKE, SITTING ON A BED. NO ACUTE RESP. DISTRESS NOTED. VS WNL. NO C/O PAIN OR DISCOMFORT AT THIS TIME. MARIKA SOFT WRIST RESTRAINTS IN USE TO PREVENT PT FRON GETTING HURTS AND PULLING OUT LINES. SAFETY MEASURES IN PLACE. WILL CONTINUE WITH PLAN OF CARE.
[2020-09-15 09:00] VITALS: BP 132/92
[2020-09-15 12:30] VITALS: BP 118/80
[2020-09-15 15:29] VITALS: BP 120/69
--- NOTE | 2020-09-15 16:07 | NUR ---
1. Continue Regular diet. 2. Recommend ensure clear TID for additional 720kcal and 24g protein.
--- NOTE | 2020-09-15 16:07 | NUR ---
Follow-up Nutrition Assessment: 234A JOSH MILAN 55F Dx: Pancytopenia, 5150 PMHx: HTN, Dementia, Spleen disorder, TBI, Chronic back pain PSHx: none noted Labs: No new labs since last assessment (08/10) Glu: 114, no other labs done since 08/06 (08/06) alb: 3.3, BMP wnl, H/H: 10.2/31% (*07/31) WBC 3.9L, H/H 10/30L, POCBG 122H, ALKPHOS 41L, ALB 2.9L (07/26) H/H 9.6/30L, Cl 109H *no other updated labs Meds: Seroquel, lexapro, pro-amatine Diet: Regular diet PO Intake: 25% x 11 meals since last visit Bed scale: (09/01) same (08/26) 63.9kg, (08/12) 63.1kg/138.82lbs, (08/10) 143#, (08/03) 135#, (08/15): 65.5 kg/144 lbs, 137.7# Edema: none noted Last BM: 09/15 Skin: redness to perineal area Irvin: [address] (09/08): no changes since last assessment, weight stable RD Note (09/15/2020): Per progress note (09/14), no acute changes, has been refusing labs, continue to require 1-1 and restraints and behavioral issues. Pt's PO intake declined comparing to last visit. Per pt's RN, they tried to feed pt intermittently when she's not screaming, and it might be beneficial to increase supplement frequency to TID. Pt is not on MVI anymore, per RN, pt had been refusing her medications as well. Estimated Nutritional Needs Based on ideal body weight (52kg) Energy: 9297-7120 kcal/day (25-30 kcal/kg for maintenance) Protein: 41-52 g/day (0.8-1 g/kg for maintenance) Fluid: 9100-4541 mL/day (1 mL/kcal) Nutrition Diagnosis: 1. Inadequate energy and protein intake r/t psych issue related poor PO intake a/e/b low average PO intake since admission. (modified, ongoing) Intervention 1. Continue Regular diet. 2. Recommend ensure clear TID for additional 720kcal and 24g protein. Monitor/Evaluate Goal: PO intake at least 75% of estimated needs (improving, ongoing) Monitor: PO intake, Labs, GI function, ONS intake F/U in 3-5 days as moderate risk 09/18-
--- NOTE | 2020-09-15 18:37 | NUR ---
REMAINS IN NO ACUTE DISTRESS, AWAKE BUT CONFUSED. NO CHNAGES IN VS. NO C/O PAIN OR DISCOMFORT. MARIKA SOFT WRIST RESTRAINTS REMAINS IN PLACE. CALL LIGHT WITHIN REACH. WILL BE ENDORSED TO INCOMING SHIFT.
--- NOTE | 2020-09-15 20:00 | NUR ---
RECEIVED PT AWAKE AND ALERT TO SELF. PLEASANTLY CONFUSED. RESTRAINTS IN PLACE DUE TO PULLING IV AND CLIMBING OUT OF BED UNSTABLE. NON COMPLIANT. NO C/O PAIN. PT IS GRAVELY DISBLED . CALL LIGHT WITHIN REACH. CONTINUING TO MONITOR
[2020-09-15 20:40] VITALS: BP 138/94
[2020-09-16 05:08] VITALS: BP 132/81
--- NOTE | 2020-09-16 07:30 | NUR ---
PATIENT RESTING IN BED, AAO TIMES 1-PERSON. YELLS AT TIMES. DENIES PAIN. RESPIRATIONS EVEN AND UL ON RA. BILAT SOFT WRIST RESTRAINTS TO PREVENT PATIENT FROM PULLING AT LINES, CIRCULATION WNL. BED IN LOWEST POSITION, CALL LIGHT IN EASY REACH, SAFETY MEASURES IN PLACE. WILL CONT TO MONITOR.
[2020-09-16 08:53] VITALS: BP 144/81
[2020-09-16 13:06] VITALS: BP 139/95
--- NOTE | 2020-09-16 15:00 | NUR ---
PATIENT RESTING IN BED, RESPIRATIONS EVEN AND UL ON RA. NO SIGNS OF PAIN OR DISCOMFORT. BILAT SOFT WRIST RESTRAINTS, SKIN INTACT, CIRCULATION CHECKED, CAP REFILL <3 SECONDS. PATIENT CONSUMED 85% LUNCH. BMx1. BED IN LOWEST POSITION, CALL LIGHT IN EASY REACH, SAFETY MEASURES IN PLACE.
[2020-09-16 17:18] VITALS: BP 121/70
--- NOTE | 2020-09-16 18:20 | NUR ---
PATIENT RESTING IN BED, RESPIRATIONS EVEN AND UL ON RA. BILAT SOFT WRIST RESTRAINTS, SKIN CHECKED, CAP REFILL <3 SECONDS, CIRCULATION WNL. NO SIGNS OF PAIN OR DISCOMFORT. NO SIGNIFICANT CHANGES THROUGHOUT SHIFT. ALL NEEDS ATTENDED TO.
--- NOTE | 2020-09-16 20:00 | NUR ---
RECEIVED PT ASLEEP. NO DISTRESS NOTED. EASILY AROUSED, CONFUSED. DOES NOT ALWAYS ANSWER. OPTIFOAM TO COCCYX. INCONTINENT OF URINE. OFFERED FLUIDS AND SNACKS. CALL LIGHT WITHIN REACH. ONLY NEEDS SOFT WRIST RESTRAINTS WHEN AWAKE DUE TO PULLING, RESTLESS AND TRYING TO CLIMB OOB.
[2020-09-16 20:35] VITALS: BP 133/84
--- NOTE | 2020-09-17 07:30 | NUR ---
PATIENT RESTING IN BED, RESPIRATIONS EVEN AND UL ON RA. NO SIGNS OF PAIN OR DISCOMFORT. AAO x1-PERSON, CONFUSED. BILAT SOFT WRIST RESTRAINTS APPLIED, SKIN INTACT, CIRCULATION WNL, CAP REFILL <3 SECONDS. BED IN LOW POSITION, CALL LIGHT IN EASY REACH, SAFETY MEASURES IN PLACE. WILL CONTINUE TO MONITOR.
[2020-09-17 08:45] VITALS: BP 135/62
--- NOTE | 2020-09-17 11:30 | NUR ---
PATIENT HAS EPISODES OF CRYING AND AGITATION, DR GUERRERO MADE AWARE, MEDICATED WITH ONE TIME DOES OF XANAX PER ORDER.
[2020-09-17 12:00] VITALS: BP 128/85
--- NOTE | 2020-09-17 12:52 | NUR ---
PATIENT CONSUMED 80% LUNCH AND 100% ENSURE. PATIENT RESTING IN BED, APPEARS CALMER AND LESS AGITATED. PATIENT NO LONGER CRYING, BUT CONTINUES TO BE RESTLESS. SAFETY MEASURES IN PLACE. WILL CONT TO MONITOR.
--- NOTE | 2020-09-17 18:19 | NUR ---
PATIENT RESTING IN BED, RESPIRATIONS EVEN AND UL ON RA. NO SIGNS OF PAIN OR DISTRESS. BILAT SOFT WRIST RESTRAINTS APPLIED, SKIN INTACT, CIRCULATION WNL, CAP REFILL <3 SECONDS. NO SIGNIFICANT CHANGES THROUGHOUT SHIFT. ALL NEEDS ATTENDED TO. BED IN LOWEST POSITION, CALL LIGHT IN EASY REACH, SAFETY MEASURES IN PLACE. WILL CONTINUE TO MONITOR AND ENDORSE TO NIGHT NURSE.
[2020-09-17 20:05] VITALS: BP 122/81
--- NOTE | 2020-09-17 21:52 | NUR ---
PT RECEIVED LYING SUPINE WITH HOB ELEVATED 45 DEGREES WITH BILATERAL SOFT WRIST RESTRAINTS APPLIED PROPERLY. PT A/OX 1 TO SELF ONLY AND UNMOTIVATED TO PARTICIAPTE IN ASSESSMENT. M/S PT. PERIPHERAL PULSES PALPABLE, NO EDEMA NOTED. NO S/S OF CHEST PAIN, DIZZINESS OR LIGHTHEADEDNESS. RESPIRATIONS EVEN UNLABORED, CTA, RA. BS ACTIVE, ABD SOFT AND FLAT, NON-TENDER, NO N/V NOTED. LBM 09/16. INCONTINENT. PT VOIDED X1, PERICARE PROVIDED. ERYTHEMA NOTED TO PERINEAL AREA, BARRIER CREAM APPLIED. GENERALIZED WEAKNESS BUT ABLE TO REPOSITION SELF IN BED. NON VERBAL PAIN INDICATORS ABSENT. SL RFA 20G PATENT, NO COMPLICATIONS TO SITE. ROM AND RELEASE PROVIDED, RESTRAINTS REAPPLIED. BED IN LOWEST POSITION, SIDE RAILS X 2, CALL LIGHT WITHIN REACH.
--- NOTE | 2020-09-18 00:37 | NUR ---
PT SLEEPING IN SUPINE POSITION. EASILY AROUSABLE TO TACTILE STIMULI. ROM AND RELEASE PROVIDED. NO PERICARE REQUIRED AT THIS TIME. NO RESPIRATORY DISTRES NOTED. DENIES PAIN. BED IN LOWEST POSITION, SIDE RAILS X 4 FOR SAFETY, BED ALARM ON, CALL LIGHT WIHTIN REACH
--- NOTE | 2020-09-18 06:12 | NUR ---
NO ACUTE CHANGES OVER NIGHT. PT REMAINS AMS WITH HALLUCINATIONS AND ON BILATERAL SOFT WRIST RESTRAINTS. NO EMOTIONAL OUTBREAKS THROUGHOUT SHIFT, PT SLEEPING MOST OF SHIFT. PERICARE PROVIDED NEEDED. NO FALLS OR INJURIES SUSTAINED DURING SHIFT. BED IN LOWEST POSITION, SIDE RAILS X4 FOR SAFETY, CALL LIGHT WITHIN REACH.
[2020-09-18 06:56] VITALS: BP 127/45
--- NOTE | 2020-09-18 07:43 | NUR ---
PT. RECEIVED IN BED ASLEEP WITH MARIKA. SOFT WRIST RESTRAINTS ON. NO VISIBLE INJURIES, IN NO ACUTE DISTRESS AT THIS TIME.
[2020-09-18 08:57] VITALS: BP 121/90
[2020-09-18 11:58] VITALS: BP 135/106
[2020-09-18 17:07] VITALS: BP 116/88
--- NOTE | 2020-09-18 20:00 | NUR ---
RECEIVED IN BED ASLEEP AROUSABLE AWAKE A/OX1 NAME ONLY ASSESSMENT COMPLETE PLAN OF CARE REVIEWED WILL CONTINUE TO MONITOR AND ASSESS CALL LIGHT IN REACH
[2020-09-18 20:43] VITALS: BP 108/78
--- NOTE | 2020-09-19 00:07 | NUR ---
NO SIGNIFICANT CHANGES NOTED AT TIS TIME WILL CONTINE TO MONITOR AND ASSESS
--- NOTE | 2020-09-19 04:50 | NUR ---
NO SIGNIFICANT CHANGES AM CARE RENDERED ALL NEEDS ANTICIPATED AND MET CALL LIGHT IN REACH
[2020-09-19 06:07] VITALS: BP 127/50
[2020-09-19 09:37] VITALS: BP 140/77
--- NOTE | 2020-09-19 10:00 | NUR ---
0830-PT SPOON FED BREAKFAST AND TOLERATED ENSURE DRINKS. PT NEEDS ASSISTANCE WITH FEEDING, PT OFFLOADED. RESTRAINTS REMOVED AND SCDS APPLIED. PT NOT ATTEMPTING TO GET OUT OF BED, BED ALARM ACTIVE
[2020-09-19 12:36] VITALS: BP 141/69
[2020-09-19 17:30] VITALS: BP 110/78
--- NOTE | 2020-09-19 19:23 | NUR ---
RECEIVED IN BED ASSESSMENT COMPLETED AT THIS TIME ANASTACIA OF CARE REVIEWED. MARIKA WRIST RESTRAINTSINTACT PT REMAINS CONFUSED AT THIS TIME NO S/S OF PAIN NOTED. TAY CONTINUE TO MONITOR AND ASSESS CALL LIGHT IN REACH
[2020-09-19 20:08] VITALS: BP 110/77
--- NOTE | 2020-09-20 | NUR ---
PT RESTING AT THIS TIME WILL CONTINUE TO MONITOR AND ASSESS
--- NOTE | 2020-09-20 04:02 | NUR ---
NO SIGIFICANT CHANGES ALL NEEDS ATICIPATED CONDITION GUARDED CALL LIGHT IN REACH
[2020-09-20 05:18] VITALS: BP 141/74
--- NOTE | 2020-09-20 08:13 | NUR ---
0750-PT SITTING UP IN BED, RESTRAINTS IN PLACE. PT ATE A SMALL BREAKFAST, APPEARS TO BE LESS AGITATED THIS AM. RESTRAINTS IN PLACE
[2020-09-20 09:12] VITALS: BP 100/77
[2020-09-20 12:34] VITALS: BP 136/82
[2020-09-20 16:23] VITALS: BP 133/90
--- NOTE | 2020-09-20 19:23 | NUR ---
RECEIVED IN BED ASSESSMENT COMPLETE PLAN OF CARE REVIEWED WILL CONTINUE TO MONITOR AND ASSESS CONDITION GUARDED AT THIS TIME NO S/S OF PAIN NOTED CALL LIGT IN REACH
[2020-09-20 20:34] VITALS: BP 119/70
--- NOTE | 2020-09-21 | NUR ---
IN BED AWAKE NO DISTRESS WILL CONTINUE TO MONITOR AND ASSESS
--- NOTE | 2020-09-21 04:16 | NUR ---
ALL NEEDS ANTICIPATED NO SIGNIFICANT DISTRESS NOTED CALL LIGHT IN REACH
[2020-09-21 05:20] VITALS: BP 137/72
--- NOTE | 2020-09-21 08:36 | NUR ---
0745-PT SITTING UP IN BED, PT TURNED AND CLEANSED. BARRIER CREAM APPLIED. ASSISTED PT IN EATING SMALL AMT OF BREAKFAST. PT WAS MOSTLY COOPERATIVE.
[2020-09-21 09:13] VITALS: BP 129/64
--- NOTE | 2020-09-21 11:21 | NUR ---
1. Continue Regular diet. 2. Recommend continue ensure clear TID for additional 720kcal and 24g protein.
--- NOTE | 2020-09-21 11:21 | NUR ---
Follow-up Nutrition Assessment: 234A Lulu Zazueta - 55/F Dx: Pancytopenia, 5150 PMHx: HTN, Dementia, Spleen disorder, TBI, Chronic back pain PSHx: none noted Labs: No new labs since last assessment -09/21 (08/10) Glu: 114, no other labs done since 08/06 (08/06) alb: 3.3, BMP wnl, H/H: 10.2/31% (*07/31) WBC 3.9L, H/H 06/26L, POCBG 122H, ALKPHOS 41L, ALB 2.9L (07/26) H/H 9.6/30L, Cl 109H *no other updated labs Meds: Seroquel, lexapro, pro-amatine Diet: Regular diet PO Intake: 45% average X6 meals since last visit Bed scale: (09/21) 64kg (09/01) same (08/26) 63.9kg, (08/12) 63.1kg/138.82lbs, (08/10) 143#, (08/03) 135#, (08/15): 65.5 kg/144 lbs, 137.7# Edema: none noted Last BM: 09/15 Skin: redness to perineal area Irvin: [address] (09/15/2020): Per progress note (09/14), no acute changes, has been refusing labs, continue to require 1-1 and restraints and behavioral issues. Pt's PO intake declined comparing to last visit. Per pt's RN, they tried to feed pt intermittently when she's not screaming, and it might be beneficial to increase supplement frequency to TID. Pt is not on MVI anymore, per RN, pt had been refusing her medications as well. Per RD note (09/21): Patient remains with confusion and tearful state per progress note, refusing labs but some medication adherence. Her po intake has improved slightly 48% on average x 6 but still under 50%. She continues a Regular diet with Ensure Clear TID to supplement. She likes pudding but unsure about how many ONS she is drinking. Will continue to provide and monitor po intake/ wt trends. Estimated Nutritional Needs Based on ideal body weight (52kg) Energy: 2669-9270 kcal/day (25-30 kcal/kg for maintenance) Protein: 41-52 g/day (0.8-1 g/kg for maintenance) Fluid: 4306-7345 mL/day (1 mL/kcal) Nutrition Diagnosis: 1. Inadequate energy and protein intake r/t psych issue related poor PO intake a/e/b low average PO intake since admission. (modified, ongoing) Intervention 1. Continue Regular diet. 2. Recommend continue ensure clear TID for additional 720kcal and 24g protein. Monitor/Evaluate Goal: PO intake at least 75% of estimated needs (improving, ongoing) Monitor: PO intake, Labs, GI function, ONS intake may remove if refuses F/U in 3-5 days as moderate risk
[2020-09-21 13:25] VITALS: BP 121/74
[2020-09-21 16:57] VITALS: BP 123/67
--- NOTE | 2020-09-21 19:30 | NUR ---
PATIENT RESTING WITH EYES CLOSED ON HER LEFT SIDE. A/O X1 ABLE TO RESPONSE WHEN CALL HER NAME. SHE KEPT YELLING TO GO AWAY WHENEVER SOMEONE TRIED TO CARE FOR HER. ON BILAT SOFT WRIST RESTRAINT. OFFERED WATER SHE REFUSED. NO IV @ [facility]. BED ALARM ON. WILL COME BACK WITH SHAREPOINT ADMINISTRATOR TO HELP RN ASSESS HER BACK AREA, ESPECIALLY BUTTOCK. BED AT THE LOWEST POSITION. WILL CONTINUE TO MONITOR.
[2020-09-21 20:47] VITALS: BP 110/64
--- NOTE | 2020-09-21 22:08 | NUR ---
SMELL OF URINE NOTED WHEN ENTERING THE ROOM. HER SHALONDA NEEDED TO BE CHANGED. WITH APARTMENT MAINTENANCE, RN ABLE TO ASSESS BUTTOCK/PERINEAL AREA. SKIN TEAR ON THE RIGHT BUTTOCK NOTED. PRESSURE ULCER ON THE SACRAL AREA. APPLIED Z GUARD ON THE BUTTOCK AREA. WILL PUT OPTIFOAM FOR THE PATIENT LATER DURING SHALONDA CHANGE. WILL CONTINUE TO MONITOR.
[2020-09-22 06:23] VITALS: BP 127/75
--- NOTE | 2020-09-22 07:03 | NUR ---
PATIENT WAS ONLY AGITATED WHEN SHE WAS CLEANED. TOGETHER WITH PYROTECHNIC ASSEMBLER, THE SKIN BREAKDOWN ON BUTTOCK/PERINEAL AREAS WERE NOTED. ALONG WITH Z-GUARD, IT MAY NEED AN OPTIFOAM TO PROTECT SKIN FROM BREAKDOWN. DURING SHIFT, PATIENT RESTING WITH EYES CLOSED. WATER WAS OFFERED BUT SHE WAS REFUSING. ONLY ATE APPLE SAUCE. WILL ENDORSE TO THE INCOMING NURSE.
--- NOTE | 2020-09-22 08:52 | NUR ---
0715-PT TURNED AND CLEANSED. RESTRAINTS REMOVED. ENCOURAGED PT TO FEED HERSELF. PT DOES TAKE SMALL BITES. BED ALARM ACTIVE
--- NOTE | 2020-09-22 10:13 | NUR ---
PT SITTING UP IN BED, CLEAN AND DRY. NO CHANGE IN STATUS. PT ATE A SMALL AMT OF BREAKFAST
[2020-09-22 10:25] VITALS: BP 130/84
--- NOTE | 2020-09-22 12:52 | NUR ---
PT STRAIGHT CATHED VIA STERILE TECHNIQUE-TOLERATED MODERATELY WELL X1 ATTEMPT.
[2020-09-22 13:40] VITALS: BP 131/83
--- NOTE | 2020-09-22 14:58 | NUR ---
PT. LEILA WITH LOW JUANPABLO SCALE AT HIGH RISK, INCONTINENT ASSOCIATED DERMATITIS TO BUTTOCKS, SKIN EROSIONS TO PARTIAL THICKNESS LOSS, WOUND BED MOIST, PALE PINK,AREA KEEP DRY AND CLEAN WITH OFFLOADING. CONTINUE TO FOLLOW PRESSURE INJURY PREVENTION INTERVENTIONS. -APPLY THIN LAYER OF Z GUARD TO BUTTOCKS BID AND PRN IF SOILING -TURN AND REPOSITION PATIENT Q 2H -ASSESS AND MONITOR SKIN CONDITION DURING POSITION CHANGE -OFFLOAD BILATERAL HEELS BY PLACING PILLOWS UNDER CALVES AT ALL TIMES, UNLESS OTHERWISE CONTRAINDICATED -PRESSURE REDISTRIBUTION BY PLACING PILLOWS AND OFFLOADING SACRALCOCCYX -KEEP SKIN CLEAN AND DRY AT ALL TIMES.
[2020-09-22 16:27] LABS: microscopic required? YES; urine erythrocyte 2+ (NEGATIVE)
--- NOTE | 2020-09-22 18:39 | NUR ---
PT MOVED TO 240B, PT'S ROOMMATE FOUND TO HAVE COVID POS TEST RESULT. PT MOVED INTO HER OWN ROOM AND IS NOW ON ISOLATION, COVID PRECAUTION SIGN ON DOOR. PT SWABBED. PT ATE MOST OF HER DINNER TOLERATED WELL. PT CLEANED AND TURNED, MORE AGITATED THAN NORMAL. RESTRAINTS PLACED BACK ON PT.PT OFFLOADED WITH PILLOWS
--- NOTE | 2020-09-22 19:40 | NUR ---
RECEIVED PT FROM DAYSMEFT NURSE. PT IS AAOX1, TO PERSON, DEMONSTRATES NO S/S OF HEADACHE/NAUSEA/DIZZINESS. PT IS MED SURG PATIENT, DEMONSTRATES NO S/S OF CHEST PAIN. PULSES ARE EQUAL BILATERALLY, NO EDEMA NOTED. PT IS CTA, ON RA, DEMONSTRATES NO SOB. ABDOMEN IS SOFT AND ROUND, NO PAIN UPON PALPATION. NORMOACTIVE X4 QUADRANTS, LAST BM 09/22, INCONTINENT. PT IS INCONTINENT. PT IS BEDFAST, GENERALIZED WEAKNESS. SKIN TEAR TO RIGHT BUTTOCKS, OPTIFOAM IN PLACE. NO IV ACCESS AT THIS TIME. PT IS UNCOOPERATIVE WITH STAFF, BILATERAL SOFT WRIST RESTRAINTS IN PLACE. ALL SAFETY MEASURES IN PLACE. BED IN LOWEST POSITION, CALL LIGHT WITHIN REACH. WILL CONTINUE TO MONITOR.
[2020-09-22 22:37] VITALS: BP 138/58
--- NOTE | 2020-09-23 00:30 | NUR ---
PT WOKEN UP AT THIS TIME, PT AGITATED INTERMITTENTLY. PT SOILED, UNCOOPERATIVE WITH STAFF ATTEMPTING TO CHANGE HER LINENS AND ASSIST WITH HYIGENE. PT REMAINS ON BILATERAL SOFT WRIST RESTRAINTS. ALL SAFETY MEASURES IN PLACE. BED IN LOWEST POSITION, CALL LIGHT WITHIN REACH. WILL CONTINUE TO MONITOR.
[2020-09-23 05:14] VITALS: BP 117/90
--- NOTE | 2020-09-23 06:41 | NUR ---
PATIENT RESTED INTERMITTENTLY WITH EYES CLOSED. PT AWAKENS AND BECOMES UNCOOPERATIVE WITH STAFF. PATIENT WAS ATTEMPTING TO HIT/KICK STAFF MULTIPLE TIMES. BILATERAL SOFT WRIST RESTRAINTS REMAIN IN PLACE. ALL SAFETY MEASURES IN PLACE. BED IN LOWEST POSITION, CALL LIGHT WITHIN REACH. WILL ENDORSE TO DAYSHIFT NURSE AT APPROPRIATE TIME.
--- NOTE | 2020-09-23 07:27 | NUR ---
ENDORSED CARE TO DAYSHIFT NURSE. ALL QUESTIONS/CONCERNS ADRESSED.
--- NOTE | 2020-09-23 07:45 | NUR ---
REC'D PT FROM REGRINDER. PT LAYING IN BED. NO ADN. BED RAIL PADDING IN PLACE. BILATERL SOFT WRIST RESTRAINTS IN PLACE. SAFETY MEASURES IN PLACE. WILL CONTINUE TO MONITOR.
[2020-09-23 08:50] VITALS: BP 157/86
--- NOTE | 2020-09-23 10:10 | NUR ---
PT SITTING UP IN BED. NO ADN. BED PADDED. SOFT WRIST RESTRAINTS IN PLACE. PULSES PRESENT, SKIN INTACT. SAFETY MEASURES IN PLACE. WILL CONTINUE TO MONITOR.
--- NOTE | 2020-09-23 11:00 | NUR ---
PT HAD BM. CHANGED CHUCKS AND APPLIED Z GUARD. NO ADN. SOFT WRIST RESTRAINTS REAPPLIED. SAFTEY MEASURES IN PLACE. WILL CONTINUE TO MONITOR.
--- NOTE | 2020-09-23 11:30 | NUR ---
DR. UGARTE RENEWED RESTRAINT ORDER AND D/C'D ISOLATION DUE TO NEG AMINATA RESULTS. PT NOW ON STANDARD PRECAUTIONS. PT SITTING UP IN BED. SAFETY PRECAUTIONS IN PLACE. NO ADN. WILL CONTINUE TO MONITOR.
[2020-09-23 12:04] VITALS: BP 146/96
--- NOTE | 2020-09-23 13:26 | NUR ---
ASSISTED PT W/ FEEDING. PT ATE ABOUT 25% OF LUNCH. RESTRAINTS IN PLACE. NO ADN. SAFETY MEASURES IN PLACE. WILL CONTINUE TO MONITOR.
[2020-09-23 15:54] VITALS: BP 130/74
--- NOTE | 2020-09-23 17:15 | NUR ---
PT SITTING UP IN BED. SEROQUEL ADMINISTERED PER MD ORDER. PT SWALLOWED HER MEDICINE WITH VANILLA PUDDING. TOLERATED WELL. WRIST RESTRAINTS INTACT. NO ADN. SAFETY MEASURES IN PLACE. WILL CONTINUE TO MONITOR.
--- NOTE | 2020-09-23 18:22 | NUR ---
HELPED PT EAT A SMALL AMOUNT OF FOOD, PT REFUSED FURTHER FEEDING. PT SITTING UP IN BED. PT HAD BM AND WAS CHANGED. PERICARE PROVIDED. APPLIED Z GUARD. SKIN TEAR ON R BUTTOCKS IS HEALING, NO OPEN WOUND. L BUTTOCKS HAS SKIN TEAR, OPTIFOAM APPLIED TO PROTECT AREA. RED SACRUM AND PERINEAL AREA BLANCHING. NO ADN. RESTRAINTS REAPPLIED. SAFETY MEASURES IN PLACE. WILL ENDORSE TO SEA CAPTAIN.
--- NOTE | 2020-09-23 20:00 | NUR ---
PT LYING IN BED, HAS HER EYES CLOSED, AROUSABLE W/ VERBAL STIMULI, ABLE TO STATE NAME ONLY, CONFUSED. ABLE TO FOLLOW SOME SIMPLE COMMANDS. NO SOB NOTED, EVEN AND UNLABORED BREATHING. NO S/S OF CHEST PAIN/ABDOMINAL DISCOMFORT. BOWEL AND URINE INCONTINENT. ON BILETRAL SOFT WRIST RESTRAINTS, NO INJURY NOTED TO THE AREA. SIDE RAILS UPX2. BED ON THE LOWEST POSITION. WILL CONT TO MONITOR
[2020-09-23 20:54] VITALS: BP 101/63
--- NOTE | 2020-09-24 02:05 | NUR ---
PT'S SITTING UP IN BED CALM NO ACUTE DISTRESS NOTED .
[2020-09-24 04:49] VITALS: BP 131/100
--- NOTE | 2020-09-24 06:29 | NUR ---
END OF SHIFT CARE DONE , PT TOLERATED WELL , AWAKE AND CALM , SOFT RESTRAING INPLACE FOR SAFETY .
--- NOTE | 2020-09-24 07:35 | NUR ---
REC'D PT FROM PHARMACEUTICAL LABORATORY TECHNICIAN. PT SITTING UP IN BED. AAOX1 TO PERSON. AUDITORY AND VISUAL HALLUCINATIONS. MED SURG PT. PULSES PRESENT, NO EDEMA. BREATHING ROOM AIR NO EVIDENCE OF DYSPNEA, RR 18. ABDOMEN NONDISTENDED. INCONTINENT. GENERALIZED WEAKNESS. SKIN TEAR ON L BUTTOCKS, RED SACRUM AND PERINEAL AREA BLANCHING. PAIN WNL. NO IV. BILAT SOFT WRIST RESTRAINTS IN USE. SAFETY MEASURES IN PLACE. WILL CONTINUE TO MONITOR.
[2020-09-24 09:00] VITALS: BP 127/110
--- NOTE | 2020-09-24 09:00 | NUR ---
PT HAD BM. PT CLEANED. PERICARE PROVIDED. BED BATH PROVIDED. BARRIER CREAM PROVIDED. PT TURNED TO L SIDE. RESTRAINTS REAPPLIED. SAFETY MEASURES IN PLACE. WILL CONTINUE TO MONITOR.
--- NOTE | 2020-09-24 09:15 | NUR ---
PT TOOK MEDS WHOLE WITH VANILLA PUDDING. TOLERATED WELL. RESTRAINTS IN PLACE. SAFETY MEASURES IN PLACE. WILL CONTINUE TO MONITOR.
--- NOTE | 2020-09-24 12:00 | NUR ---
DR MADE AWARE OF PERINEAL REDNESS. HE WILL PUT IN ORDER FOR NYSTATIN.
--- NOTE | 2020-09-24 12:16 | NUR ---
PT SLEEPING ON L SIDE. RESTRAINTS IN PLACE. SAFETY MEASURES IN PLACE. WILL CONTINUE TO MONITOR.
--- NOTE | 2020-09-24 13:00 | NUR ---
PT VOIDED AND SATURATED SHALONDA. PT HAD BM WELL. PT WAS CHANGED WELL BEDDING. PERICARE PROVIDED. ACTIVE ROM FOR PT, THEN RESTRAINTS REAPPLIED. SAFETY MEASURES IN PLACE. WILL CONTINUE TO MONITOR.
[2020-09-24 13:08] VITALS: BP 110/79
--- NOTE | 2020-09-24 14:47 | NUR ---
PT SLEEPING IN BED ON R SIDE. RR 16. RESTRAINTS IN PLACE. SAFETY MEASURES IN PLACE. WILL CONTINUE TO MONITOR.
--- NOTE | 2020-09-24 17:00 | NUR ---
PT SLEEPING BUT AROUSABLE. EVENING MEDICATION PROVIDED PER MD ORDERS. PT SWALLOWED WHOLE WITH VANILLA PUDDING. RESTRAINTS SECURED. SAFETY MEASURES IN PLACE. WILL CONTINUE TO MONITOR.
--- NOTE | 2020-09-24 18:31 | NUR ---
PT CHANGED AND PERICARE PROVIDED. PT LAYING ON BACK. RESTRAINTS IN PLACE. SAFETY MEASURES IN PLACE. NO ADN. WILL ENDORSE TO METAL BURRER.
[2020-09-24 19:08] VITALS: BP 123/81
--- NOTE | 2020-09-24 19:40 | NUR ---
RECEIVED PT LYING IN BED, CONFUSED AND ORIENTED TO PERSON ONLY. ABLE TO FOLLOW SOME SIMPLE COMMANDS. NO SOB NOTED. NO S/S OF CHEST PAIN/PRESSURE. NO S/S OF ABDOMINAL DISCOMFORT. ABDOMEN IS SOFT. BOWEL AND URINE INCONTINENT. W/ BLANCHABLE ERYTHEMA ON THE PERINEAL AND SACRAL AREA AND LEFT BUTTOCK SKIN TEAR. NO IV ACCESS. W/ BILATERAL SOFT WRIST RESTRAINTS, NO INJURY NOTED TO THE AREA. SIDE RAILS UPX2. BED ON THE LOWEST POSITION. WILL CONT TO MONITOR
[2020-09-24 20:45] VITALS: BP 134/80
--- NOTE | 2020-09-25 00:32 | NUR ---
IN BED WITH EYES CLOSED ,PT;S CALM .
[2020-09-25 05:29] VITALS: BP 109/73
--- NOTE | 2020-09-25 06:32 | NUR ---
NO CHANGES OF CONDITION NOTED, AWAKE IN BED . SOFT RESTRAINED IN PLACE FOR SAFETY , SKIN INTACT , FABI CARE DONE TREATMENT ORDERED , WILL CON'T TO KEEP PT CLEAN AND DRY AT ALL TIME .
--- NOTE | 2020-09-25 07:32 | NUR ---
RECEIVED PT AAOX1 IN NO APPARENT DISTRESS. PT REPOSITIONED IN BED AN FABI CARE PROVIDED. SLIGHT REDNESS TO PERIAREA NOTED.NYSTATIN POWDER APPLIED ORDERED BY MD. CALL LIGHT IN REACH AND BED PLACED IN LOWEST POSITION.
[2020-09-25 08:45] VITALS: BP 105/79
--- NOTE | 2020-09-25 09:03 | NUR ---
PER MD AND SOCIAL SERVICE, REQUEST WAS MADE TO TRIAL OFF RESTRAINS. PT NOTED W AGRESSIVE AND ANXIOUS SCREAMING BEHAVIOR BUT NO STRIKING OR ATTEMPTS TO GET OUT OF BED. PT TOLERATING WELL SKIN INTACT.
--- NOTE | 2020-09-25 09:45 | NUR ---
PT CONTINUES TO BE OFF RESTRAINTS W NO ATTEMPTS TO GET OUT OF BED OR STRIKE. NO AGGRESSIVE BEHAVIORS NOTED. FREQUENT VISUAL CHECKS DONE.
[2020-09-25 12:33] VITALS: BP 112/88
[2020-09-25 17:56] VITALS: BP 118/94
--- NOTE | 2020-09-25 19:16 | NUR ---
PT RESTING IN BED IN NO APPARENT DISTRESS. RESTRAINS CONTINUE TO BE OFF.NO ATTEMPTS TO GET OUT OF BED OR STRIKING OUT ALTOUGHT PT APPEARED ANXIOUS.FREQUENT VISUAL CHECKS PROVIDED. PT RECEIVED ATIVAN AND PROVED EFFECTIVE. CALL LIGHT IN REACH AND BED AT LOWEST POSITION.
--- NOTE | 2020-09-25 19:30 | NUR ---
RECEIVED PT FROM AM NURSE. PT SLEEPING IN BED, EASILY AROUSABLE. A/OX1, CONFUSED, PT BECOMES COMBATIVE WHEN TOUCHED. DENIES PAIN. MED SURG PT. DENIES CHEST PAIN, PRESSURE, AND PALPITATIONS. NO EDEMA NOTED. PULSES PALPABLE TO BUE/BLE. ON ROOM AIR. NO RESPIRATORY DISTRESS AT THIS TIME. BREATHING UNLABORED AND REGULAR. BS ACTIVE X4 QUADS. ABD FLAT AND NONTENDER. REDNESS NOTED TO SACRAL AREA. NO IV ACCESS. BED IN LOW POSITION. CALL LIGHT WITHIN REACH. WILL CONTINUE TO MONITOR.
--- NOTE | 2020-09-25 20:52 | NUR ---
PT REFUSED SCHEDULED MEDICATIONS. EXPLAINED PURPOSE OF MEDICATIONS, PT YELLS WHEN SPOKEN TO AND REFUSES. ATTEMPTED TO REPOSITION PT IN BED, BECOMES COMBATIVE. MADE PT COMFORTABLE IN BED. BED IN LOW POSITION. CALL LIGHT WITHIN REACH. WILL CONTINUE TO MONITOR.
[2020-09-25 21:55] VITALS: BP 89/47
--- NOTE | 2020-09-26 00:05 | NUR ---
PT ASLEEP IN BED, EASILY AROUSABLE. DENIES PAIN. DENIES CHEST PAIN, PRESSURE, AND PALPITATIONS. NO RESPIRATORY DISTRESS AT THIS TIME. BED IN LOW POSITION. CALL LIGHT WITHIN REACH. WILL CONTINUE TO MONITOR.
[2020-09-26 06:36] VITALS: BP 131/59
--- NOTE | 2020-09-26 06:58 | NUR ---
PT SLEEPING IN BED, EASILY AROUSABLE. SPO2 98% ON ROOM AIR. NO RESPIRATORY DISTRESS AT THIS TIME. DENIES PAIN. NO IV ACCESS, PT REFUSED. BED IN LOW POSITION. CALL LIGHT WITHIN REACH. WILL GIVE REPORT TO AND ENDORSE CARE TO AM NURSE.
--- NOTE | 2020-09-26 07:30 | NUR ---
PT RECEIVED THIS MORNING SLEEPING QUIETLY IN BED. RESPIRATIONS EVEN AND UNLABORED ON RA. SKIN WARM TO TOUCH. PT CONTINUES TO BE OFF RESTRAINS. NO APPARENT DISTRESS NOTED. CALL LIGHT IN REACH AND BED IN LOWEST POSITION.
[2020-09-26 08:49] VITALS: BP 91/61
--- NOTE | 2020-09-26 11:01 | NUR ---
PT RESTING IN BED AOX1 RESP E/U. RESTRAINS CONTINUE TO BE OFF W NO ATTEMPTS TO GET OUT OF BED OR HARM HERSELF. FREQUENT VISUAL CHECKS. BED PLACE IN LOWEST POSITION.
[2020-09-26 12:34] VITALS: BP 114/89
--- NOTE | 2020-09-26 14:01 | NUR ---
PT SITTING IN BED IN NO RESPIRATORY DISTRESS AT THIS TIME.PT REPOSITIONED AT THIS MOMENT BED IN LOWEST POSITION. CALL LIGHT WITHIN REACH. WILL CONTINUE TO MONITOR.FREQUENT VISUAL CHECKS PROVIDED THROUGHOUT SHIFT.
[2020-09-26 16:44] VITALS: BP 142/98
--- NOTE | 2020-09-26 18:05 | NUR ---
PT RESTING IN BED RESP E/U IN NO APPARENT DISTRESS.ATIVAN GIVEN TODAY X 1 AND PROVED EFFECTIVE. PT NOTED TALKING TO HERSELF NO AGRESSIVNESS OR SELF HARM BEHAVIORS NOTED. NO SIGNIFICANT CHANGES NOTED THIS SHIFT.
--- NOTE | 2020-09-26 19:40 | NUR ---
RECEIVED SHIFT REPORT FROM DAY CHELSIE ORO. PT ASLEEP, EASILY AROUSABLE TO NAME. ALERT TO SELF. [address] LUNGS CTA, ON RA. VSS, NAD NOTED. +PULSES, NO EDEMA. +BS X4. NO PIV, MD TEAM AWARE. PT UPDATED ON POC. SAFETY CHECKS COMPLETED, BED ALARM ACTIVATED. CALL RUSSELL WITHIN REACH, HS CARE ONGOING.
[2020-09-26 21:00] VITALS: BP 117/63
[2020-09-27 05:57] VITALS: BP 123/72
--- NOTE | 2020-09-27 07:39 | NUR ---
PT RECEIVED THIS MORNING RESTING IN BED IN NO ACUTED DISTRESS. RESP E/U ON RA. BOWEL SOUNDS PRESENT IN ALL 4 QUADRANTS AND NORMOACTIVE. PT DENIES PAIN. PT CALM AND COOPERATIVE THIS AM.NOTED SPEAKING TO SELF. FABI CARE PROVIDED, TURNED AND REPOSITIONED.CALL LIGHT IN REACH AND BED IN LOWEST POSITION.
[2020-09-27 08:42] VITALS: BP 112/87
[2020-09-27 12:07] VITALS: BP 157/108
--- NOTE | 2020-09-27 15:20 | NUR ---
URINE SPECIMEN COLLECTED TODAY FOR UA W PROPERTY MANAGER.PT RESTING IN BED W EPISODES OF SCREAMING AND SPEAKING TO HERSELF. NO APPARENT SELF HARM OR STRIKING BEHAVIOR NOTED. TURNED AND REPOSITIONED AND FABI CARE PROVIDED. CALL LIGHT IN REACH AND BED AT LOWEST POSITION.
[2020-09-27 17:06] VITALS: BP 138/115
--- NOTE | 2020-09-27 18:05 | NUR ---
DR UGARTE HERE TO SEE PT W NEW ORDERS TO COLLECT URINE FOR UA W MANAGING DIRECTOR ATLAS AND STARTED PT ON KEFLEX 500. PTS UPDATED.
--- NOTE | 2020-09-27 19:50 | NUR ---
RN RECEIVED REPORT, PT AWAKE ALERT AND RESPONSIVE. PT WITH SAFETY PRECAUTIONS IN PLACE RUSSELL IN REACH.
[2020-09-28 02:18] VITALS: BP 127/77
--- NOTE | 2020-09-28 02:21 | NUR ---
PT SLEEPY ALERT AND RESPONSIVE. NAD OBSERVED. PT REFUSING ADLS CARE AMD V/S. RN TO ENCOURAGE PT TO RECEIVE CARE FROM STAFF. SAFETY MEASURES IN PLACE, RUSSELL IN REACH.
--- NOTE | 2020-09-28 06:21 | NUR ---
PT AWAKE AND RESPONSIVE, NAD OBSERVED RESP EVEN ANDUNLABORED. PT CONTINUES TO REFUSE SOME CARE SUCH ADLS AND V/S. PT WISHES TO BE LEFT ALONE. RN EDUCATED PT O N IMPORTANCE OF BEING COMPLIANT WITH CARE. PT WITH UNEVENTFUL NIGHT.
--- NOTE | 2020-09-28 08:07 | NUR ---
PT. RECEIVED IN BED AWAKE, CONFUSED AND DISORIENTED, REALITY ORIENTATION PROVIDED. SHE HAS DISORGANIZED SPEECH. NEEDS ARE ANTICIPATED AND MET AT THIS TIME, PT. IN NO APPARENT DISTRESS.
[2020-09-28 09:00] VITALS: BP 149/93
[2020-09-28 09:19] LABS: BASOPHIL % 0.6 % (0.2-1.3); PLATELET COUNT 199 x10^3mcL (179-408)
[2020-09-28 09:29] LABS: RED CELL DISTRIBUTION WIDTH 17.1 % (12.3-17.7)
[2020-09-28 09:55] LABS: ALBUMIN 3.5 g/dL (3.4-5.0); ALKALINE PHOSPHATASE 57 U/L (46-116); ALT/SGPT 26 U/L (14-59); AST/SGOT 25 U/L (15-37); BILIRUBIN TOTAL 0.49 mg/dL (0.20-1.00); CALCIUM 9.4 mg/dL (8.5-10.1); CARBON DIOXIDE 24.8 mmol/L (21-32); CHLORIDE SERUM 106 mmol/L (98-107); CREATININE SERUM 0.7 mg/dL (0.6-1.0); GFR1 > 60 mL/min; GLUCOSE SERUM 70 mg/dL (74-106); POTASSIUM SERUM 3.1 mmol/L (3.5-5.1); SODIUM SERUM 144 mmol/L (136-145)
--- NOTE | 2020-09-28 11:54 | NUR ---
1. Continue Regular diet. 2. Recommend continue ensure clear TID for additional 720kcal and 24g protein.
--- NOTE | 2020-09-28 11:54 | NUR ---
Follow-up Nutrition Assessment: 240B Lulu Zazueta - 55/F Dx: Pancytopenia, 5150 PMHx: HTN, Dementia, Spleen disorder, TBI, Chronic back pain PSHx: none noted Labs: (09/28) H/H 9.8/29L, K 3.1L, BUN 20H, BG 70L (08/10) Glu: 114, no other labs done since 08/06 Meds: Mycostatin, Keflex, Ativan, Seroquel, lexapro, pro-amatine Diet: Regular diet PO Intake: 48% average X6 meals since last visit Bed scale: (09/21) 64kg (09/01) same (08/26) 63.9kg, (08/12) 63.1kg/138.82lbs, (08/10) 143#, (08/03) 135#, (08/15): 65.5 kg/144 lbs, 137.7# Edema: none noted Last BM: 09/15 Skin: redness to perineal area Irvin: [address] (09/15/2020): Per progress note (09/14), no acute changes, has been refusing labs, continue to require 1-1 and restraints and behavioral issues. Pt's PO intake declined comparing to last visit. Per pt's RN, they tried to feed pt intermittently when she's not screaming, and it might be beneficial to increase supplement frequency to TID. Pt is not on MVI anymore, per RN, pt had been refusing her medications as well. Per RD note (09/21): Patient remains with confusion and tearful state per progress note, refusing labs but some medication adherence. Her po intake has improved slightly 48% on average x 6 but still under 50%. She continues a Regular diet with Ensure Clear TID to supplement. She likes pudding but unsure about how many ONS she is drinking. Will continue to provide and monitor po intake/ wt trends. RD note (09/28): Pt is noted to be less agitated and off restraints per progress note and seen at bedside. Very altered, not able to communicate. Her PO intake from flowsheets noted to be 48% x last 6 meals, about the same as prior f/u. Seen Ensure clear open at bedside with half of ONS drunken. No other changes in plan of care. Will continue to monitor. Estimated Nutritional Needs Based on ideal body weight (52kg) Energy: 8480-0658 kcal/day (25-30 kcal/kg for maintenance) Protein: 41-52 g/day (0.8-1 g/kg for maintenance) Fluid: 8706-2066 mL/day (1 mL/kcal) Nutrition Diagnosis: 1. Inadequate energy and protein intake r/t psych issue related poor PO intake a/e/b low average PO intake since admission. (modified, ongoing) Intervention 1. Continue Regular diet. 2. Recommend continue ensure clear TID for additional 720kcal and 24g protein. Monitor/Evaluate Goal: PO intake at least 75% of estimated needs (improving, ongoing/ not met) Monitor: PO intake, Labs, GI function, ONS intake F/U in 3-5 days as moderate risk 2/4-6
[2020-09-28 12:27] VITALS: BP 129/93
[2020-09-28 17:29] VITALS: BP 143/58
--- NOTE | 2020-09-28 23:14 | NUR ---
RECIEVED PT FROM DAY SHIFT RN. PT AWAKE SITTING IN BED WITH GOWN OVER HER HEAD. PT CANNOT STATE DATE, TIME OR WHERE SHE IS. PT HAS HX OF AUDITORY/ VISUAL HALLUNICATION. PT CURRENTLY ON ROOM AIR WITH CLEAR LUNG SOUNDS. PT HAS GENERALIZED WEAKNESS. PT HAS REDNESS TO SACRAL/FABI WITH NYSTATIN POWDER ORDER. PT IS INCONTINENT. ALL SAFETY PRECAUTIONS IN PLACE. BED IN LOWEST POSITION, 2 SIDE RAILS UP. CALL LIGHT WITHIN REACH. WILL CONTINUE TO MONITOR.
--- NOTE | 2020-09-29 04:24 | NUR ---
PT REMAINS AWAKE AND INCREASINGLY AGITATED IN BED. CONTINUES TO RESPOND TO INTERNAL STIMULI. ADMINISTERED ATIVAN 0.5MG @0340. PROVIDED PT WITH SNACKS AND TRIED TO CHANGE PT. PT REFUSED TO BE CLEANED OR PUT GOWN BACK ON. WILL CONTINUE TO MONITOR. BED IN LOWEST POSITION, 2 SIDE RAILS UP. CALL LIGHT WITHIN REACH. BED ALARM ON.
[2020-09-29 05:00] VITALS: BP 121/70
--- NOTE | 2020-09-29 05:55 | NUR ---
PT REMAINS AWAKE SITTING UP IN BED. PT HAS OVERALL CALMER DEMEANOR THAN BEFORE. PT CONTINUES TO RESPOND TO INTERNAL STIMULI. PT REFUSES TO WEAR GOWN. PROVIDED ALL NEW SHEETS AND FBAI CARE TO PT. NO IV IN PLACE DUE TO PT REFUSAL. MD IS AWARE. PT REMINDED TO STAY IN BED. ALL SAFETY PRECAUTIONS IN PLACE. BED IN LOWEST POSITION. CALL LIGHT WITHIN REACH. BED ALARM ON. WILL CONTINUE TO MONITOR. WILL ENDORSE PT CARE TO DAY SHIFT RN.
--- NOTE | 2020-09-29 08:11 | NUR ---
PT. RECEIVED IN BED AWAKE, CONFUSED AND DISORIENTED, PICKING AT HER GOWN AND BED LINENS, TALKNG TO HERSELF, NO SIGNS OF DISCOMFORT, REALITY ORIENTATION PROVIDED. WILL CONT TO MONITOR PT.
--- NOTE | 2020-09-29 20:32 | NUR ---
PT A/O X 1. PT SHOW SIGNS OF HALLUCINATIONS. PT DENIES ANY PAIN AT THIS MOMENT. PT IS IN NO APPARENT DISTRESS. PT IS ON RA. PT HAS SACRAL FABI REDNESS. CONTINUE TO MONITOR CLOSELY.
[2020-09-29 20:47] VITALS: BP 126/72
--- NOTE | 2020-09-29 23:02 | NUR ---
PT ASLEEP. PT A/O X 1. PT STILL HAS HALLUCINATIONS, PT WAS GIVEN ATIVAN EARLIER. PT IN NO APPARENT DISTRESS. PT BED ALARM ON. CONTINUE TO MONITOR PT CLOSELY.
--- NOTE | 2020-09-30 05:20 | NUR ---
PT A/O X 1. PT MAY SHOW SIGNS OF EMOTIONAL OUTBURST. PT HAS REFUSED MEDS. PT HAS NO IV LOCK DUE TO REFUSAL OF IV MEDS. PT DENIES ANY PAIN AT THIS MOMENT.PT HAS HALLUCINATIONS. PT TO BE DC IN NURSING FACILTY ONCE PT SHOW SIGNS OF MEDICALLY STABLE. PT IS INCONTINENT. PT HAS REDNESS ON PERIAREA/SACRAL AREA, NIASTAMYN POWDER APPLIED. CONTNUE TO MONITOR PT CLOSELY. ENDORSED TO INCOMING NURSE.
[2020-09-30 05:57] VITALS: BP 98/63
--- NOTE | 2020-09-30 06:12 | NUR ---
PT ON EMOTIONAL OUTBURST. PT CHANGED LINEN AND GOWN. NO BM, PT IS INCONTINENT. PAT DRY AND CLEAN PERIAREA/SACRAL AREA WITH REDNESS.
--- NOTE | 2020-09-30 07:30 | NUR ---
RECEIVED PT FROM NIGHT RN. PT AAOX1. PT ORIENTED TO SELF. PT MED SURG STATUS. DENIES PAIN AT THIS TIME. PT ON RA. NO SOB OR DISTRESS. NO IV ACCESS. MD AWARE. ALL COMFORT AND SAFETY MEASURES IN PLACE. BED IN LOW POSITION, 2 SIDE RAILS UP, CALL LIGHT WITH IN REACH. ALL QUESTIONS AND CONCERNS ADDRESSED.
[2020-09-30 09:08] VITALS: BP 139/93
[2020-09-30 12:19] VITALS: BP 115/86
--- NOTE | 2020-09-30 13:10 | NUR ---
IN TO SEE PT. SPOKE TO PT'S DIAMANTE AND UPDATED HIM. ALL QUESTIONS AND CONCERNS ADDRESSED.
--- NOTE | 2020-09-30 13:29 | NUR ---
DR HASSAN MADE AWARE OF PT NOT HAVING AM LABS. DR HASSAN GAVE VERBAL ORDER FOR CBC AND CMP. ALL QUESTIONS AND CONCERNS ADDRESSED. ORDER CONFIRMED AND READBACK.
--- NOTE | 2020-09-30 15:40 | NUR ---
IN TO SEE PT. PT REMAINS STABLE AT THIS TIME. ALL QUESTIONS AND CONCERNS ADDRESSED. ALL COMFORT AND SAFETY MEASURESE IN PLACE.
[2020-09-30 16:04] VITALS: BP 129/96
--- NOTE | 2020-09-30 19:15 | NUR ---
REPORT GIVEN TO NIGHT RN. PT REMAINED STABLE THROUGHOUT MY SHIFT W/ NO ACUTE CHANGES TO STATUS. ALL QUESTIONS AND CONCERNS ADDRESSED. ALL NEEDS MET AT THIS TIME. ALL CARES ENDORSED.
--- NOTE | 2020-09-30 19:45 | NUR ---
PATIENT RESTING WITH EYES CLOSED SEMI LAKHANI. AWAKE BUT KEPT HER EYES CLOSED. WON'T AGITATE PATIENT. BED ALARM ON. NO IV ACCESS. BED AT THE LOWEST POSITION. CALL LIGHT WITHIN REACH. WILL CONTINUE TO MONITOR.
[2020-09-30 20:51] VITALS: BP 106/71
--- NOTE | 2020-10-01 03:55 | NUR ---
PATIENT WAS AWAKE SOBBING. UNABLE TO COMMUNICATE THE REASON SHE WAS SAD. PERFORMED A CLUSTER CARE ON HER. NOTICED SHE WAS PEELING HER LIP WITH HER HANDS. EDUCATED PATIENT NOT TO PEEL HER LIP OR IT WOULD BLEED. PATIENT KEPT DOING IT. BED AT THE LOWEST POSITION. CALL LIGHT WITHIN REACH. WILL CONTINUE TO MONITOR.
[2020-10-01 05:19] VITALS: BP 106/68
[2020-10-01 06:29] LABS: ALBUMIN 3.4 g/dL (3.4-5.0); ALKALINE PHOSPHATASE 57 U/L (46-116); ALT/SGPT 26 U/L (14-59); AST/SGOT 21 U/L (15-37); BILIRUBIN TOTAL 0.55 mg/dL (0.20-1.00); CALCIUM 9.1 mg/dL (8.5-10.1); CARBON DIOXIDE 23.3 mmol/L (21-32); CHLORIDE SERUM 104 mmol/L (98-107); CREATININE SERUM 0.8 mg/dL (0.6-1.0); GFR1 > 60 mL/min; GLUCOSE SERUM 93 mg/dL (74-106); POTASSIUM SERUM 3.2 mmol/L (3.5-5.1); SODIUM SERUM 139 mmol/L (136-145); TOTAL PROTEIN, SERUM 6.8 g/dL (6.4-8.2)
[2020-10-01 06:42] LABS: BASOPHIL % 0.6 % (0.2-1.3); PLATELET COUNT 190 x10^3mcL (179-408)
--- NOTE | 2020-10-01 07:19 | NUR ---
PATIENT WAS RESTING WITH EYES CLOSED MOST OF THE SHIFT. NO ACUTE RESPIRATORY DISTRESS DURING SHIFT. WILL ENDORSE THIS TO THE INCOMING NURSE.
--- NOTE | 2020-10-01 07:30 | NUR ---
REPORT RECEIVED FROM LICENSED SOCIAL WORKER RN. PT IS CURRENTLY AWAKE, RESPONDS TO VERBAL STIMULI. PT IS ABLE TO SPEAK RANDOM WORDS BUT DOES NOT REPLY TO DIRECT QUESTIONS. PT IS ABLE TO BE DIRECTED AND EATS FOOD WITH HELP. NO IV AWARE REPORTED BY LICENSED SOCIAL WORKER RN. TOLERATING ROOM AIR WELL, NO SIGNS OF SOB. NO SIGNS OF PAIN NOTED. SAFETY PRECAUTIONS IN PLACE. CALL LIGHT WITHIN REACH. WILL CONTINUE TO MONITOR.
[2020-10-01 08:51] VITALS: BP 149/80
--- NOTE | 2020-10-01 08:55 | NUR ---
REPORTED K=3.2 TO OVER THE PHONE, TELEPHONE ORDER OF K CHLOR 40meq PO ONCE.
--- NOTE | 2020-10-01 11:08 | NUR ---
PT IS CURRENTLY ON BED, SAD MOOD. PT CRIES RANDOMLY. NO SIGNS OF PAIN AND SOB. 2 BM TODAY FOR NOW, CLEANED. SAFETY PRECAUTIONS IN PLACE. CALL LIGHT WITHIN REACH. WILL CONTINUE TO MONITOR.
[2020-10-01 12:22] VITALS: BP 117/78
--- NOTE | 2020-10-01 15:40 | NUR ---
PT IS CURRENTLY IN BED, NOT AGITATED. FREQUENT MOOD SWINGS WITH OCCASIONAL CRYING. NO SIGNS OF PAIN AND SOB. ALL NEEDS MET AT THIS TIME. SAFETY PRECAUTIONS IN PLACE. CALL LIGHT WITHIN REACH. WILL CONTINUE TO MONITOR.
[2020-10-01 16:54] VITALS: BP 120/75
--- NOTE | 2020-10-01 18:56 | NUR ---
PT WAS COOPERATIVE THROUGHOUT SHIFT. SPENT MOST OF TIME SITTING UP ON BED. NO SIGNS OF PAIN AND SOB. PT OCCASIONALLY CRIED AND WOULD TALK RANDOMLY TO SELF. INAPPROPRIATE RESPONSES TO QUESTIONS. PT WAS ABLE TO TAKE MEDICATIONS WITH APPLESAUCE. PT REFUSED IV, MD IS AWARE. CLEANED FREQUENTLY. SAFETY PRECAUTIOSN IN PLACE. CALL LIGHT WITHIN REACH. WILL ENDORSE CARE TO FLY FISHING GUIDE RN.
--- NOTE | 2020-10-01 19:45 | NUR ---
PATIENT LYING SUPINE SEMIFOWLER RESTING WITH EYES CLOSED. NO ACUTE DISTRESS NOTED. AWAKE ON VERBAL COMMAND BUT IMMEDIATELY DISMISSED THE NURSE PRESENCE. OFFERED DRINK BUT SHE REFUSED. PLAN TO CLUSTER CARE WITH HEAD MECHANIC BECAUSE SHE WAS UPSET BEING TOUCHED. BED IN THE LOWEST POSITION. WILL CONTINUE TO MONITOR.
[2020-10-01 20:24] VITALS: BP 119/71
--- NOTE | 2020-10-01 21:09 | NUR ---
MIDODRINE WAS HELD BECAUSE HER BP 117/71; HR 80. MIDODRINE IS INDICATED FOR ORTHOSTATIC HYPOTENSION. SINCE THE PATIENT HAD BEEN LYING ON THE BED DURING SHIFT, ALSO IT SHOULD BE GIVEN BEFORE 6 PM BEFORE EVENING MEAL AND AT LEAST 4 HOURS BEFORE BEDTIME. MAY NEED TO ENDORSE TO INCOMING NURSE ABOUT CHANGING THE SCHEDULE FOR MEDS.
[2020-10-02 05:27] VITALS: BP 120/82
--- NOTE | 2020-10-02 06:45 | NUR ---
Pt received in bed mid shift with respiratory rate and effort even and unlabored greg. Pt afebrile throughout shift. Appears emotionally distraught, reassurance given with comfort and safety measures maintained.
[2020-10-02 08:09] VITALS: BP 130/92
--- NOTE | 2020-10-02 10:00 | NUR ---
PATIENT LYING IN BED, TALKING BUT UNINTELLIGABLE. REFUSED ALL MEDICATIONS THIS AM. INCONTINENT. CALL LIGHT WITHIN REACH AND BED ALARM IN PLACE. FIORDALIZA PEARCE RN
[2020-10-02 12:03] VITALS: BP 135/88
[2020-10-02 15:52] VITALS: BP 128/70
[2020-10-02 21:14] VITALS: BP 144/101
[2020-10-03 05:02] VITALS: BP 130/110
--- NOTE | 2020-10-03 06:36 | NUR ---
Pt remains stable with no s/s of acute distress noted. Pt however appears to be emotionally distraught and could be observed tearful at times. Reassurance provided along with finger foods and hydration, comfort and safety maintained.
[2020-10-03 07:47] VITALS: BP 120/88
--- NOTE | 2020-10-03 07:59 | NUR ---
REC'D PT FROM ROLL MECHANIC. PT IS SITTING UP IN BED. OFFERED BREAKFAST TO PT AND SHE REFUSED AT THIS TIME. ASSISTED PT WITH DRINKING ORANGE JUICE. AAOX1. MED SURG PT. PULSES PRESENT, NO EDEMA. BREATHING ROOM AIR, LUNGS CLEAR TO AUSCULTATION. LBM 10/03/20, BS PRESENT X4. INCONTINENT. GENERALIZED WEAKNESS. SACRAL/PERINEAL REDNESS. PT APPEARS TEARFUL AND ANXIOUS. SAFETY MEASURES IN PLACE. CALL LIGHT WITHIN REACH. WILL CONTINUE TO MONITOR.
--- NOTE | 2020-10-03 10:00 | NUR ---
PT HAD BM. CLEANED AND PERICARE PROVIDED. NO ADN. CALL LIGHT WITHIN REACH. SAFETY MEASURES IN PLACE WILL CONTINUE TO MONITOR.
[2020-10-03 11:57] VITALS: BP 130/96
--- NOTE | 2020-10-03 13:35 | NUR ---
Intervention 1. Continue Regular diet. 2. Recommend continue ensure clear TID for additional 720kcal and 24g protein.
--- NOTE | 2020-10-03 13:35 | NUR ---
Follow-up Nutrition Assessment: [address]B Lulu Zazueta - 55/F Dx: Pancytopenia, 5150 PMHx: HTN, Dementia, Spleen disorder, TBI, Chronic back pain PSHx: none noted Labs: K: 3.2L, H/H: 9.6/28L, no lipid panel available Meds: Mycostatin, Keflex, Ativan, Seroquel, lexapro, pro-amatine Diet: Regular diet PO Intake: 30-70%, 40% average, pt consuming 20-60% ONS Bed scale: (09/21) 64kg (09/01) same (08/26) 63.9kg, (08/12) 63.1kg/138.82lbs, (08/10) 143#, (08/03) 135#, 61.4 kg, (08/15): 65.5 kg/144 lbs, 137.7# (no significant wt changes) Edema: none noted Last BM: 10/03 Skin: redness to perineal area/sacral Irvin: [address] (09/15/2020): Per progress note (09/14), no acute changes, has been refusing labs, continue to require 1-1 and restraints and behavioral issues. Pt's PO intake declined comparing to last visit. Per pt's RN, they tried to feed pt intermittently when she's not screaming, and it might be beneficial to increase supplement frequency to TID. Pt is not on MVI anymore, per RN, pt had been refusing her medications as well. Per RD note (09/21): Patient remains with confusion and tearful state per progress note, refusing labs but some medication adherence. Her po intake has improved slightly 48% on average x 6 but still under 50%. She continues a Regular diet with Ensure Clear TID to supplement. She likes pudding but unsure about how many ONS she is drinking. Will continue to provide and monitor po intake/ wt trends. RD note (09/28): Pt is noted to be less agitated and off restraints per progress note and seen at bedside. Very altered, not able to communicate. Her PO intake from flowsheets noted to be 48% x last 6 meals, about the same as prior f/u. Seen Ensure clear open at bedside with half of ONS drunken. No other changes in plan of care. Will continue to monitor RD note (10/03): per pt's nurse, pt refuses meals at time, but does drink sips of ONS or half of ONS. Pt did not eat very much for breakfast this morning per pt's primary nurse, pt drank orange juice this morning Estimated Nutritional Needs Based on ideal body weight (52kg) Energy: 5793-8645 kcal/day (25-30 kcal/kg for maintenance) Protein: 41-52 g/day (0.8-1 g/kg for maintenance) Fluid: 6510-9245 mL/day (1 mL/kcal) Nutrition Diagnosis: 1. Inadequate energy and protein intake r/t psych issue related poor PO intake a/e/b low average PO intake since admission. (modified, ongoing) Intervention 1. Continue Regular diet. 2. Recommend continue ensure clear TID for additional 720kcal and 24g protein. Monitor/Evaluate Goal: PO intake at least 75% of estimated needs (improving, ongoing/ not met) Monitor: PO intake, Labs, GI function, ONS intake F/U in 3-5 days as MR 10/06-
--- NOTE | 2020-10-03 13:47 | NUR ---
PT SLEEPING BUT AROUSABLE. SAFETY MEASURES IN PLACE. CALL LIGHT WITHIN REACH. WILL CONTINUE TO MONITOR.
[2020-10-03 15:47] VITALS: BP 137/80
--- NOTE | 2020-10-03 16:43 | NUR ---
PT SITTING UP IN BED, APPEARS TEARFUL AND ANXIOUS. CALL LIGHT WITHIN REACH. SAFETY MEASURES IN PLACE. WILL CONTINUE TO MONITOR.
--- NOTE | 2020-10-03 17:38 | NUR ---
PT TOOK SEROQUEL PER MD ORDER, ADMINISTERED WITH CHOCOLATE PUDDING. PT WAS HAVING VISUAL HALLUCINATIONS. ALSO HALLUCINATING THAT SHE WAS EATING, I GAVE HER YANDEL CRACKERS WHICH SHE FED HERSELF. CALL LIGHT WITHIN REACH. SAFETY MEASURES IN PLACE. WILL CONTINUE TO MONITOR.
--- NOTE | 2020-10-03 18:25 | NUR ---
PT SITTING UP IN BED, EATING YANDEL CRACKER. NO ADN. CALL LIGHT WITHIN REACH. SAFETY MEASURES IN PLACE. WILL ENDORSE TO MANAGER INSURANCE.
--- NOTE | 2020-10-03 18:54 | NUR ---
NURSING CO-SIGN THE DOCUMENTATION ENTERED BY THE RN ANDREA HAS BEEN REVIEWED. REVIEWED/CO-SIGNED BY: Tina Groves DOCUMENTATION DONE BY:David DUNCAN
--- NOTE | 2020-10-03 20:29 | NUR ---
IN BED WITH EYES CLOSED . NO RESPM DISTRESS NOTED.
--- NOTE | 2020-10-03 23:47 | NUR ---
PT'S AWAKE SITTING EATING SOME YANDEL CRAKERS , PO MEDS GIVEN . PT TOLERATED WELL .
--- NOTE | 2020-10-04 05:25 | NUR ---
IN BED AWAKE NO DISTRESS .
--- NOTE | 2020-10-04 06:53 | NUR ---
IN BED CALM , TOLERATED AM CARE WELL .
--- NOTE | 2020-10-04 07:55 | NUR ---
REC'D PT FROM HYDRO PNEUMATIC TESTER. SITTING UP IN BED, TEARFUL AND ANXIOUS. PROVIDED WATER AND YANDEL CRACKERS. CALL LIGHT WITHIN REACH. SAFETY MEASURES IN PLACE. WILL CONTINUE TO MONITOR.
[2020-10-04 08:04] VITALS: BP 155/90
--- NOTE | 2020-10-04 10:13 | NUR ---
DR. HASSAN MADE AWARE OF PT'S BP TREND 130S-150S. DR. HASSAN WOULD LIKE TO D/C MIDODRINE.
[2020-10-04 11:50] VITALS: BP 137/67
--- NOTE | 2020-10-04 13:05 | NUR ---
PT ASSISTED WITH EATING SOME POTATOES AND APPLE SAUCE AND APPLE JUICE. TOLERATED SEROQUEL WELL. PT HAD PHONE CALL WITH ON ROOM PHONE. PT APPEARS TO BE IN A PLEASANT DISPOSITION. CALL LIGHT WITHIN REACH, SAFETY MEASURES IN PLACE. WILL CONTINUE TO MONITOR.
[2020-10-04 16:11] VITALS: BP 124/80
--- NOTE | 2020-10-04 18:23 | NUR ---
PT SITTING UP IN BED. ATE 50% OF DINNER. NO ADN. CALL LIGHT WITHIN REACH. SAFETY MEASURES IN PLACE. WILL ENDORSE TO ASSEMBLER ERECTOR.
[2020-10-04 19:13] VITALS: BP 98/61
[2020-10-05 04:13] VITALS: BP 116/68
--- NOTE | 2020-10-05 04:52 | NUR ---
IN BED AWAKE NO RESP DISTRESS NOTED . KEPT PT CLEAN AND DRY AT ALL THE TIME .
--- NOTE | 2020-10-05 06:31 | NUR ---
AM CARE DONE P TOLERATED WELL , AWAKE NO DISTRESS.
--- NOTE | 2020-10-05 07:34 | NUR ---
RECIEVED PATIENT FROM [facility] NURSE. PATIENT IS CURRENTLY AWAKE ALERT AND ORIENTED X 1 ONLY. PATIENT ONLY ORIENTED TO SELF. NO IV SITE, PROVIDER AWARE. SEIZURE PADS AND PRECAUTIONS CURRENTLY IN PLACE. NO REPORT OF PAIN OR DISTRESS FROM THE PATIENT AT THIS TIME. PATIENT OBSERVED AWAKE AND IN BED. LUNG SOUNDS CLEAR TO AUSCULTATION ON ROOM AWARE. REDNESS PRESENT TO PERIANAL AREA, PATIENT HAS PRESCRIBED NYSTATIN POWDER. SAFETY PRECAUTIONS IN PLACE. CALL LIGHT WITHIN REACH. WILL CONTINUE TO PROVIDE CARE FOR PATIENT.
[2020-10-05 08:59] VITALS: BP 126/71
[2020-10-05 16:23] VITALS: BP 104/80
--- NOTE | 2020-10-05 18:11 | NUR ---
PATIENT CURRENTLY AWAKE ALERT AND ORIENTED X 1. SEIZURE PRECAUTIONS IN PLACE. PATIENT ANXIOUS AND TEARFUL THROUGHOUT SHIFT. NO IV SITE, PROVIDER AWARE. SPOKE WITH DIAMANTE ON PHONE TODAY AND PROVIDED UPDATE ON PATIENT'S STATUS. SAFETY PRECAUTIONS IN PLACE. CALL LIGHT WITHIN REACH. WILL ENDORSE ALL FURTHER CARE TO THE NOC NURSE.
--- NOTE | 2020-10-05 19:27 | NUR ---
PT RECEIVED FROM DAY SHIFT. A&O X1 (PERSON). MED-SURG PT. STRONG PULSES OF ALL EXTREMITIES, NO EDEMA NOTED. CLEAR BREATH SOUNDS, PT ON ROOM AIR, OXYGEN SATURATION ABOVE 95%. ACTIVE BOWEL SOUNDS X4, PT IS INCONTINENT. PT HAS GENERALIZED WEAKNESS AND IS ON BED REST. PT REDNESS OF THE SACRAL AND PERINEAL AREA COVERED WITH NYSTATIN.NO C/O OR SIGNS OF PAIN, DISTRESS, OR DISCOMFORT. NO IV ACCESS MD AWARE. BED ON LOWEST LEVEL, CALL LIGHT WITHIN REACH, BED RAILS X2. TAY CONTINUE TO MONITOR.
--- NOTE | 2020-10-06 01:03 | NUR ---
PT RESTING IN BED WITH EYES CLOSED. NO C/O OR SIGNS OF PAIN, DISTRESS, DISCOMFORT. BED ON LOWEST LEVEL, CALL LIGHT WITHIN LION, BED RAILS UP X2. WILL CONTINUE TO MONITOR.
--- NOTE | 2020-10-06 05:48 | NUR ---
PT REMAINED IN BED WITH EYES CSOED THROUGHOUT THE NIGHT. NO C/O OR SIGNS OF PAIN, DISTRESS, DISCOMFORT. OXYGEN SATURATION REMAINS ABOVE 95%, ON ROOM AIR. BED ON LOWEST LEVEL, CALL LIGHT WITHIN REACH, BED RAILS UP X2. WILL ENDORSE TO ONCOMING SHIFT.
[2020-10-06 06:34] VITALS: BP 114/69
[2020-10-06 08:40] VITALS: BP 138/91
--- NOTE | 2020-10-06 09:13 | NUR ---
PATIENT SITTING IN BED COMBING HAIR, AOX1, ABLE TO TAKE MORNING MEDS CRUSHED IN PUDDING. DOES NOT FOLLOW COMMANDS, STARTS CRYING. PATIENT VS STABLE. ALL NEEDS MET FOR NOW, TAY;L CONTINUE MONITORING.
--- NOTE | 2020-10-06 12:37 | NUR ---
PATIENT SITTING IN BED, PATIENT LOOKS COMFORTABLE AND IS NOT CRYING OR YELLING AT THIS TIME. WILL CONTINUE MONITORING.
[2020-10-06 16:20] VITALS: BP 138/72
--- NOTE | 2020-10-06 18:31 | NUR ---
PATIENT REMAINED STABLE THROUGH SHIFT, THERE WAS NO SIGNIFICANT CHANGES. PATIENT VS ARE STABLE, AOX1, LOOKS COMFORTABLE. WILL ENDORSE REPORT TO ORTHOPEDIC NURSE.
--- NOTE | 2020-10-06 19:30 | NUR ---
PT RECIEVED FROM DAY NURSE. PT RESTING IN BED AT THIS TIME. DENIES PAIN OR DISCOMFORT AT THIS TIME. PT A/O X1 AT THIS TIME, ALERT TO PERSON, REORIENTED TO TIME, PLACE, AND SITUATION. GARBLED SPEECH NOTED. PT UNABLE TO FOLLOW COMMANDS. PT M/S, DENIES CP, NV, DIZZINESS, OR PALPATATIONS. PT BREATHING E/U ON RA. NO S/S OF SOB NOTED. PT ABLE TO TURN AND REPOSITION SELF. GEN WEAKNESS NOTED. NO IV ACCESS AT THIS TIME, PT REFUSING. MD AWARE. ALL NEEDS AND CONCERNS ADDRESSED AT THIS TIME.
--- NOTE | 2020-10-07 06:44 | NUR ---
PT RESTING IN BED AT THIS TIME. NO S/S OF PAIN OR DISCOMFORT NOTED. PT CLEANED AT THIS TIME. ALL NEEDS AND CONCERNS ADDRESSED THIS SHIFT. WILL ENDORSE TO DAY NURSE.
--- NOTE | 2020-10-07 07:30 | NUR ---
PT IS AAOX1 TO SELF, VERBALLY RESPONSIVE, ABLE TO MAKE NEEDS KNOWN AND FOLLOW COMMANDS. MED SURG PT. NO IV ACCESS. AWARE. RESP EVEN AND UNLABORED. LUNG SOUNDS CTA. ON R/A. NO COUGH OR SOB. DENIES PAIN. PT HAS SACRAL AND PERINEAL REDNESS. HAS SCHEDULED NYSTATIN ORDERED. CALL LIGHT WITHIN REACH. BED IN LOWEST POSITION.
--- NOTE | 2020-10-07 08:21 | NUR ---
NYSTATIN POWDER APPLIED TO PERINEAL AREA. SCHEDULED MEDS GIVEN CRUSHED IN APPLE SAUCE. PT DENIES PAIN. NO DISTRESS NOTED. CALL LIGHT WITHIN REACH.
[2020-10-07 08:36] VITALS: BP 151/87
--- NOTE | 2020-10-07 13:54 | NUR ---
SEROQUEL PO GIVEN CRUSHED WITH APPLE SAUCE. NO S/S OF PAIN OR DISTRESS NOTED. CALL LIGHT WITHIN REACH.
--- NOTE | 2020-10-07 18:21 | NUR ---
SCHEDULED MEDS GIVEN AND TOLERATED WELL. PT DENIES PAIN. NO DISTRESS NOTED. PT GIVEN BED BATH, GOWN AND LINEN CHANGE. PT TOLERATED ACTIVITY WELL. PT HAS NO IV ACCESS MD AWARE. WILL ENDORSE ALL CARE TO NOC RN.
--- NOTE | 2020-10-07 19:56 | NUR ---
SITTING UP IN BED CONFUSED WITH GARBLED SPEECH. RESPIRATIONS UNLABORED. SKIN INTACT. SAFETY PRECAUTION MAINTAINED.
[2020-10-07 20:55] VITALS: BP 143/93
--- NOTE | 2020-10-08 05:14 | NUR ---
IN BED ALERT WITH CONFUSION. LINENS AND INCONTINENCE PADS CHANGED. SAFETY MAINTAINED.
[2020-10-08 06:06] VITALS: BP 148/86
--- NOTE | 2020-10-08 07:15 | NUR ---
PT IS AAOX1 TO SELF, GARBLED SPEECH AT TIMES. CAN COMMUNICATE SOME NEEDS AND FOLLOW SIMPLE COMMANDS. DENIES ORR AND DIZZINESS. IV CATH ACCESS DENIED BY PT, AWARE. MED SURG PT. CALL LIGHT WITHIN REACH. BED IN LOWEST POSITION.
--- NOTE | 2020-10-08 09:57 | NUR ---
SCHEDULED MED GIVEN AND TOLERATED WELL, CRUSHED AND GIVEN WITH APPLE SAUCE. PT CALM AND COOPERATIVE. DENIES PAIN. CALL LIGHT WITHIN REACH.
--- NOTE | 2020-10-08 12:11 | NUR ---
SEROQUEL PO GIVEN CRUSHED WITH APPLE SAUCE. PT ASSISTED WITH DRINKING WATER AND COFFEE. NO S/S OF PAIN. PT TEARFUL AND CONFUSED. CALL LIGHT WITHIN REACH.
--- NOTE | 2020-10-08 14:33 | NUR ---
Follow-up Nutrition Assessment: [address] Lulu Zazueta - 55/F Dx: Pancytopenia, 5150 PMHx: HTN, Dementia, Spleen disorder, TBI, Chronic back pain PSHx: none noted Labs: (10/01) K: 3.2L, H/H: 9.6/28L, no lipid panel available Meds: Mycostatin, Keflex, Ativan, Seroquel, lexapro, pro-amatine Diet: Regular diet, Ensure Clear tid PO Intake: 30-70%, 40% average, pt consuming 0-20% ONS Bed scale: (10/08) 117.4# (09/21) 64kg (09/01) same (08/26) 63.9kg, (08/12) 63.1kg/138.82lbs, (08/10) 143#, (08/03) 135#, 61.4 kg, (08/15): 65.5 kg/144 lbs, 137.7# (no significant wt changes) Edema: none noted Last BM: 10/03 Skin: redness to perineal area/sacral Irvin: 12 note (10/03): per pt's nurse, pt refuses meals at time, but does drink sips of ONS or half of ONS. Pt did not eat very much for breakfast this morning per pt's primary nurse, pt drank orange juice this morning Rd note (10/08): pt continues to be off restraints and awaiting placement to SNF, po intakes continues to be poor and pt only drinks little sips of her supplements, nursing and dietary continue to encourage pt to eat her meals and drink her supplements. PT was on ensure before however did not like it, spoke with nursing who agreed that pt may like it now Estimated Nutritional Needs Based on ideal body weight (52kg) Energy: 3396-9495 kcal/day (25-30 kcal/kg for maintenance) Protein: 41-52 g/day (0.8-1 g/kg for maintenance) Fluid: 4480-8562 mL/day (1 mL/kcal) Nutrition Diagnosis: 1. Inadequate energy and protein intake r/t psych issue related poor PO intake a/e/b low average PO intake since admission. (modified, ongoing) 2. Involuntary weight loss r/t poor po intakes and pt clinical condition of dementia aeb 10.6kg weight loss in past 2 weeks (new). Intervention 1. Continue Regular diet. Give whole milk with meals. 2. Recommend changing supplement to ensure enlive bid to encourage improved oral intakes. Monitor/Evaluate Goal: PO intake at least 75% of estimated needs (improving, ongoing/ not met) Monitor: PO intake, Labs, GI function, ONS intake, Weights F/U as high risk in 2-3 days 10/10-.
--- NOTE | 2020-10-08 17:55 | NUR ---
RESP EVEN AND UNLABORED. NO DISTRESS NOTED. PT SITTING AT BEDSIDE WITH BEDSIDE TRAY POSITIONED IN FRONT OF HER. DENIES PAIN. CALL LIGHT WITHIN REACH. WILL ENDORSE ALL CARE TO LOSS PREVENTION GUARD RN.
--- NOTE | 2020-10-08 19:52 | NUR ---
SITTING UP AT BEDISIDE CONFUSED. RESPIRATIONS UNLABORED. BED ALARM ON. NAD DISTRESS NOTED. SAFETY MAINTAINED. CALL LIGHT IN REACH, BED LOW.
[2020-10-08 22:00] VITALS: BP 136/74
--- NOTE | 2020-10-09 03:58 | NUR ---
SITTING UP IN BED CONFUSED AND YELLING. SAFETY MAINTAINED
--- NOTE | 2020-10-09 05:03 | NUR ---
LINENS AND INCONTINENT PADS CHANGED. SAFETY MAINTAINED.NO CHANGE IN STATUS
[2020-10-09 05:36] VITALS: BP 146/89
--- NOTE | 2020-10-09 07:25 | NUR ---
RECIEVED PT FROM WARP DRAWER NURSE PT AWAKE ALERT AND ORIENTED X1. SITTING UP IN BED. RESPERATIONS UNLABORED. 02 SATURATION AT 98 % ROOM AIR. NO IV SITE AVAILABLE. MD AWARE. PT DENIES ANY PAIN AT THIS TIME BED AT LOWEST POSITION, CALL LIGHT WITHIN REACH. WILL CONTINUE TO MONITOR.
--- NOTE | 2020-10-09 07:45 | NUR ---
PT WAS ON PHONE WITH DAUGHTER. DAUGHTER TRANSLATED PT HAD STOMACH PAIN OF 5/10 LEVEL. STOMACH REGION FIRM. 650MG ACETAMINOPHEN GIVEN. WILL CONTINUE TO MONITOR.
[2020-10-09 09:16] VITALS: BP 155/72
[2020-10-09 09:17] VITALS: BP 155/72
[2020-10-09 16:41] VITALS: BP 136/82
--- NOTE | 2020-10-09 18:03 | NUR ---
PT SITTING UP IN BED, RESTING. UNLABORED BREATHING, NO DISTRESS NOTED ANXIOUSPT AAOX1 SELF O2 SATURAITON AT 96-97% VIA ROOM AIR. PT DENIES PAIN AT THIS TIME. NO IV SITE IN PLACE MD AWARE. BED AT LOWEST POSITION, CALL LIGHT WITHIN REACH WILL ENDROSE CARE TO INCOMING NURSE.
--- NOTE | 2020-10-09 19:27 | NUR ---
AWAKE IN BED ORIENTED*1. NAD NOTED. RESPIRATIONS UNLABORED ON ROOM AIR. NO PIV. MD AWARE. BED LOW. SIDE RAILS UP AND PADDED FOR SAFETY. WHEELS LOCKED. WILL TR
[2020-10-09 20:51] VITALS: BP 136/89
--- NOTE | 2020-10-10 05:19 | NUR ---
NAD NOTED. RESPIRATION UNLABORED. BED LINENS AND INCONTINENCE PADS CHANGED. BED BATH GIVEN. SAFETY MAINTAINED.
[2020-10-10 05:25] VITALS: BP 131/86
--- NOTE | 2020-10-10 07:58 | NUR ---
RECIEVED REPORT FROM HIDE SALTER NURSE, PT AAOX1 UNLABORED BREATHING, NO DISTRESS NOTED, O2 SATURAITON AT 97-98% VIA ROOM AIR. PT DENIES PAIN AT THIS TIME. NO IV SITE AVAILABLE MD AWARE. BED AT LOWEST POSITION, CALL LIGHT WITHIN REACH WILL CONTINUE TO MONITOR.
[2020-10-10 08:31] VITALS: BP 123/74
--- NOTE | 2020-10-10 11:00 | NUR ---
MADE DR. DEL ROSARIO AWARE OF PTs INCREASE IN ANXITETY, FACE PICKING.
[2020-10-10 12:19] VITALS: BP 120/69
--- NOTE | 2020-10-10 12:35 | NUR ---
SPOKE WITH FRONT OFFICE JAVA DEVELOPER ABOUT PTs FOOD CONSUMPTION. AND PROTEIN FLUID INTAKE. PER FRONT OFFICE JAVA DEVELOPER PROTEIN SHAKE MAYBE INCREMENTED TO TID.
--- NOTE | 2020-10-10 13:03 | NUR ---
Follow up Nutrition Assessment: [address] Lulu Zazueta - 55/F Dx: Pancytopenia, 5150 PMHx: HTN, Dementia, Spleen disorder, TBI, Chronic back pain PSHx: none noted Labs: no current labs Meds: Mycostatin, Keflex, Ativan, Seroquel, lexapro, pro-amatine Diet: Regular diet, Ensure enlive BID, whole milk with meals PO Intake: 40% average Bed scale: (10/08) 117.4# (09/21) 64kg (09/01) same (08/26) 63.9kg, (08/12) 63.1kg/138.82lbs, (08/10) 143#, (08/03) 135#, 61.4 kg, (08/15): 65.5 kg/144 lbs, 137.7# (no significant wt changes) Edema: none Last BM: 10/07 Skin: redness to perineal area/sacral Irvin: note (10/03): per pt's nurse, pt refuses meals at time, but does drink sips of ONS or half of ONS. Pt did not eat very much for breakfast this morning per pt's primary nurse, pt drank orange juice this morning Rd note (10/08): pt continues to be off restraints and awaiting placement to SNF, po intakes continues to be poor and pt only drinks little sips of her supplements, nursing and dietary continue to encourage pt to eat her meals and drink her supplements. PT was on ensure before however did not like it, spoke with nursing who agreed that pt may like it now RD note (10/10): Spoke to pt's RN and she reported the pt is drinking 100% of ensure and whole milk provided with meals. Pt's nurse reported the pt likes drinking liquids and eating soft foods. RN reported that the pt received ground beef before and she would not eat it. RN was asking it pt could receive ensure TID since she is drinking ONS. Will change ensure to TID. Estimated Nutritional Needs Based on ideal body weight (52kg) Energy: 6855-7902 kcal/day (25-30 kcal/kg for maintenance) Protein: 41-52 g/day (0.8-1 g/kg for maintenance) Fluid: 7657-8424 mL/day (1 mL/kcal) Nutrition Diagnosis: 1. Inadequate energy and protein intake r/t psych issue related poor PO intake a/e/b low average PO intake since admission. (modified, ongoing) 2. Involuntary weight loss r/t poor po intakes and pt clinical condition of dementia aeb 10.6kg weight loss in past 2 weeks (new). Intervention 1. Continue Regular diet. Continue whole milk with meals. 2. Change ensure enlive to TID. Monitor/Evaluate Goal: PO intake at least 75% of estimated needs (improving, ongoing/ not met) Monitor: PO intake, Labs, GI function, ONS intake, Weights F/U as MR 10/13-18
--- NOTE | 2020-10-10 13:10 | NUR ---
Intervention 1. Continue Regular diet. Continue whole milk with meals. 2. Change ensure enlive to TID.
--- NOTE | 2020-10-10 16:30 | NUR ---
MADE DR. RODRIGUES AWARE OF PT INCREASE ANXIETY, FACE PICKING. ORDER FOR 0.5 ATIVAN PO Q6 PRN WAS GIVEN. ORDER READ BACK AND VERAFIED. NOTED AND CARRIED OUT.
[2020-10-10 16:37] VITALS: BP 123/99
--- NOTE | 2020-10-10 18:31 | NUR ---
PT AWAKE NO LABORED BREATHING, NO RESPIRATORY DISTRESS NOTED AT THIS TIME. DENIES ANY PAIN, IS ANXIOUS, 0.5 MG OF ATIVAN GIVEN TO HELP WITH ANXIETY. BED AT LOWEST POSITION, CALL LIGHT WITHIN REACH. WILL ENDORESE CARE TO INCOMING NURSE.
--- NOTE | 2020-10-10 19:21 | NUR ---
SITTING UP IN BED ALERT CONFUSED PICKING AT FACE AND MOUTH. REDIRECTED. RESPIRATIONS UNLABORED. NO PIV MD AWARE. SIDE RAIL PADDED AND UP *3. BED LOW. WILL MONITOR.
[2020-10-10 21:23] VITALS: BP 128/74
--- NOTE | 2020-10-11 05:19 | NUR ---
IN BED CONFUSED. ATTMEPTED REORIENTATION. RESPIRATIONS UNLABORED. SAFETY MAINTAINED. NAD NOTED
[2020-10-11 05:37] VITALS: BP 124/79
--- NOTE | 2020-10-11 07:50 | NUR ---
PT RESTING IN BED ASLEEP UNLABORED BREATHING NO DISTRESS NOTED AT THIS TIME 02 SATURATION 99% VIA ROOM AIR. TELE #4 NSR. BED AT LOWEST POSITION, CALL LIGHT WITHIN REACH WILL CONTINUE TO MONITOR.
[2020-10-11 08:59] VITALS: BP 134/72
[2020-10-11 12:08] VITALS: BP 136/85
[2020-10-11 17:23] VITALS: BP 164/47
--- NOTE | 2020-10-11 18:30 | NUR ---
PT IN BED TEARY, ANXIOUS, STATES OF DILUSION. NO IV SITE IN PLACE MD AWARE. NO SOB, UNLABORED BREATHING PT DENIES PAIN. BED AT LOWEST POSITION CALL LIGHT WITHIN REACH. WILL ENDORSE CARE TO INCOMING NURSE.
--- NOTE | 2020-10-11 19:40 | NUR ---
RECEIVED PT FROM DAYSHIFT NURSE FOR CONTINUITY OF CARE. PT AOX1 TO SELF, CONFUSED AND TALKS TO SELF, ABLE TO MAKE SIMPLE NEEDS KNOWN, NONCOMPLIANT MOST TIMES, NO C/O ORR. PT MEDSURG, NO C/O CHEST PAIN. BL PULSES PALPABLE, NO EDEMA NOTED. ON RA, NO S/S RESP DISTRESS OR SOB NOTED. ABDOMEN SOFT AND FLAT, BS ACTIVE, NO C/O NV. PT INCONTINENT TO URINE. NO IV D/T REPORTS OF PT REFUSAL. REDNESS NOTED ON SACRAL/PERINEAL AREA. ALL SAFETY MEASURES IN CHECK, BED AT LOWEST POSITION, BL SIDERAILS UP X2, CALL LIGHT WITHIN REACH. WILL CONT TO MONITOR.
--- NOTE | 2020-10-11 19:40 | NUR ---
RECEIVED PT FROM DAYSHIFT NURSE FOR CONTINUITY OF CARE. PT AOX1 TO SELF, ABLE TO MAKE SIMPLE NEEDS KNOWN, NONCOMPLIANT MOST TIMES, NO C/O ORR. PT MEDSURG, NO C/O CHEST PAIN. BL PULSES PALPABLE, NO EDEMA NOTED. ON RA, NO S/S RESP DISTRESS OR SOB NOTED. ABDOMEN SOFT AND FLAT, BS HYPOACTIVE, NO C/O NV. PT INCONTINENT TO URINE. NO IV D/T REPORTS OF PT REFUSAL. REDNESS NOTED ON SACRAL/PERINEAL AREA. PT DELUSIONAL AND TALKS TO SELF. ALL SAFETY MEASURES IN CHECK, BED AT LOWEST POSITION, BL SIDERAILS UP X2, CALL LIGHT WITHIN REACH. WILL CONT TO MONITOR.
[2020-10-11 20:14] VITALS: BP 137/74
--- NOTE | 2020-10-12 00:30 | NUR ---
PT RESTING IN BED WITH EYES CLOSED. NO C/O PAIN OR FACIAL GRIMMACING NOTED. ON RA, NO S/S RESP DISTRESS OR SOB NOTED. ALL SAFETY MEASURES IN CHECK, BED AT LOWEST POSITION, CALL LIGHT WITHIN REACH. WILL CONT TO MONITOR.
[2020-10-12 05:02] VITALS: BP 107/60
--- NOTE | 2020-10-12 05:02 | NUR ---
NO ACUTE CHANGES THROUGHOUT SHIFT. PT RESTING IN BED SLEEPING, NO C/O PAIN OR FACIAL GRIMMACING NOTED. ON RA, NO S/S RESP DISTRESS OR SOB NOTED. ALL SAFETY MEASURES IN CHECK, BED AT LOWEST POSITION, CALL LIGHT WITHIN REACH. WILL CONT TO MONITOR.
--- NOTE | 2020-10-12 07:46 | NUR ---
REC'D PT FROM DROP WORKER. PT AAOX1. MED SURG PT. PULSES PRESENT, NO EDEMA. ROOM AIR 02 SAT 98%. LBM 10/12/20. INCONTINENT. GEN WEAKNESS. REDNESS ON SACRAL/FABI AREA TX W/ [place]STAT[place] TOP. PT REFUSED IV, MD AWARE. ANXIOUS AND TEARFUL AT TIMES. CALL LIGHT WITHIN REACH. SAFETY MEASURES IN PLACE. WILL CONTINUE TO MONITOR.
[2020-10-12 09:56] VITALS: BP 138/94
--- NOTE | 2020-10-12 11:00 | NUR ---
GAVE REPORT TO MARCO A AT [facility].
--- NOTE | 2020-10-12 11:12 | NUR ---
TOOK PIC OF SACRAL/BUTTOCKS, PLACED IN CHART. SKIN IS INTACT. SOME REDNESS.
[2020-10-12] MEDS ORDERED: SERO100 PO (11:19)
[2020-10-12] MEDS ORDERED: LEXAPRO10 MG PO (11:19)
[2020-10-12] MEDS ORDERED: LORAZEPAM0.5 MG PO (11:19)
[2020-10-12] MEDS ORDERED: MYCP TOP (11:19)
[2020-10-12 11:37] VITALS: BP 138/94
--- NOTE | 2020-10-12 13:05 | NUR ---
PATIENT REAMAINS IN BED, BECOMES AGITATED WHEN ATTEMPTING TO PROVIDE CARE. PATIENT HAS NO HL OR TELE. AWARE AND AGREEABLE TO PATIENT BEING TRANSFERED TO [facility] AT 1300. TWO BAGS OF BELONGINGS AND DISCAHRGED INSTRCUTIONS WILL BE SENT WITH TRANSPORT TEAM. SKIN INTACT, SIGHT PICKNESS NOTED ON BUTTOCKS. PATIENT TAKING LIQUIDS WELL AT THIS TIME. NO ACUTE DISTRESS NOTED. WILL CONTINUE TO MONITOR.
== END 2020-10-12 14:47 | DRG 57 ==
LOC: ED 09:23 → MU 18:05 → DU 08-02 06:20 → MU 08-10 16:45
PROVIDERS: Emergency Medicine; Hospitalist; Internal Medicine; Neuromusculoskeletal Medicine & OMM; Psychiatry & Neurology Psychiatry; Student in an Organized Health Care Education/Training Program; ADMIT Internal Medicine; ATTEND Internal Medicine
DX: S06.9X0A Unspecified intracranial injury without loss of consciousness, initial encounter (principal); G04.81 Other encephalitis and encephalomyelitis; D61.818 Other pancytopenia; E46 Unspecified protein-calorie malnutrition; G30.9 Alzheimer's disease, unspecified; F02.80 Dementia in other diseases classified elsewhere, unspecified severity, without behavioral disturbance, psychotic disturbance, mood disturbance, and anxiety; R45.851 Suicidal ideations; D73.4 Cyst of spleen; I10 Essential (primary) hypertension; G89.29 Other chronic pain; M54.9 Dorsalgia, unspecified; F28 Other psychotic disorder not due to a substance or known physiological condition; Z91.81 History of falling; W18.39XA Other fall on same level, initial encounter; Y93.89 Activity, other specified; Y92.89 Other specified places as the place of occurrence of the external cause; Y99.8 Other external cause status; F41.9 Anxiety disorder, unspecified; Z87.820 Personal history of traumatic brain injury; Z68.25 Body mass index [BMI] 25.0-25.9, adult
CPT/HCPCS: 82962; 97110-GP; 97530-GP; G0378; G0480; J1630; J2060; J3475; J3480; J3486; J7030; J7040; J7042; U0003